=== PATIENT | female | born 1950 | race Caucasian/White ===

== ENCOUNTER 2024-04-27 10:30 | Outpatient (AMB) | payer MEDICARE, BC, MEDICAID, SELFPAY ==
--- NOTE | 2024-04-27 10:45 | A.OFFVIS_ITS ---
Vital Signs 04/27/24 10:47 Height 4 ft 5 in Weight 168 lb BMI 42.0 BP 132/74 Blood Pressure Location Lt brachial Position Sitting Pulse 71 Pulse Source Pulse Oximeter Pulse Oximetry (%) 95 Oxygen Delivery Method Room Air Intake Visit Reasons: Osteoporosis/cm Intake Note: Patient presents for follow up on osteoporosis. Accompanied by: Daughter Allergies cephalexin Allergy (Severe, Verified 04/27/24 11:16) Anaphylaxis ceftriaxone Allergy (Intermediate, Verified 04/27/24 11:16) BREATHING PROBLEMS ciprofloxacin [From Cipro] Allergy (Intermediate, Verified 04/27/24 11:16) Anaphylaxis doxycycline Allergy (Intermediate, Verified 04/27/24 11:16) HEADACHE, STOMACH ISSUES morphine Allergy (Unknown, Unverified 04/27/24 11:16) Unknown alendronate sodium Adverse Reaction (Unknown, Verified 04/27/24 11:16) itching, rash ibuprofen Adverse Reaction (Unknown, Unverified 04/27/24 11:16) Hives insulin isophane (NPH) Adverse Reaction (Unknown, Unverified 04/27/24 11:16) Unknown insulin regular [From Humulin 70/30 U-100 Insulin] Adverse Reaction (Unknown, Verified 04/27/24 11:16) ITCHING AT SITE levofloxacin Adverse Reaction (Unknown, Verified 04/27/24 11:16) Anaphylaxis oxycodone Adverse Reaction (Unknown, Unverified 04/27/24 11:16) Unknown pioglitazone [From Actos] Adverse Reaction (Unknown, Unverified 04/27/24 11:16) Unknown sulfabenzamide Adverse Reaction (Unknown, Verified 04/27/24 11:16) Stomach Upset zafirlukast Adverse Reaction (Unknown, Unverified 04/27/24 11:16) BREATHING PROBLEMS JARDIANCE Allergy (Severe, Uncoded 04/27/24 11:16) BREATHING PROBLEMS DILTIAZ Allergy (Intermediate, Uncoded 04/27/24 11:16) BREATHING PROBLEMS AMARYL Adverse Reaction (Intermediate, Uncoded 04/27/24 11:16) CONSTIPATION AMATYL Adverse Reaction (Unknown, Uncoded 04/27/24 11:16) Anaphylaxis ERYTHROMYCIN Adverse Reaction (Unknown, Uncoded 04/27/24 11:16) UNKNOWN FORTEO Adverse Reaction (Unknown, Uncoded 04/27/24 11:16) UNKNOWN glimepiride Adverse Reaction (Unknown, Uncoded 04/27/24 11:16) Unknown LEVAQUIN Adverse Reaction (Unknown, Uncoded 04/27/24 11:16) Angioedema moxif Adverse Reaction (Unknown, Uncoded 04/27/24 11:16) Anaphylaxis pioglita Adverse Reaction (Unknown, Uncoded 04/27/24 11:16) Unknown tramadol Adverse Reaction (Unknown, Uncoded 04/27/24 11:16) Unknown HPI Comments Details: She had Reclast infusion for the 1st time in October. She reports that after her infusion she had myalgias and felt unwell for a few days. In January she developed pneumonia then was treated for UTI. She also went to the ER in December due to back pain. MRI was done in the ER but did not report any new fracture. Back pain got worse after Reclast infusion. She has been applying lidocaine patches or Salonpas patches with some benefit. She continues to take calcium and vitamin-D supplement. Sometimes she also takes ensure drink 3 to 4 times a week. Review of Systems Const All systems reviewed & are unremarkable except as noted in HPI and below Physical Exam Vital Signs: Last Vital Signs Pulse 71 04/27/24 10:47 BP 132/74 04/27/24 10:47 Pulse Ox 95 04/27/24 10:47 Oxygen Delivery Method Room Air 04/27/24 10:47 BMI result Body Mass Index 42.0 Const Other: General: Comfortable CVS: RRR Respiratory: clear to auscultation bilaterally. Good respiratory effort Skin: No lesions seen MSK: Tender to palpate lower lumbar spinous process and paraspinal muscles. Lumbar flexion was not assessed as patient has had multiple compression fractures in the past with history of osteoporosis. Assessment & Plan Assessment & Plan (1) Osteoporosis: Comment: History of osteoporosis with multiple compression fractures with failed treatment on Prolia. She received Reclast infusion 11/12/2023 with flu-like symptoms as side effect. 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 I will obtain labs this visit to check calcium and vitamin-D Code(s): M81.0 - Age-related osteoporosis without current pathological fracture Category: Medical Qualifiers: Encounter type: sequela Osteoporosis type: age-related Presence of current pathological fracture: with current pathological fracture Qualified Code(s): M80.00XS - Age-related osteoporosis with current pathological fracture, unspecified site, sequela Plan: Labs ordered Plan to repeat bone density next February when it is due at [facility] Continue calcium and vitamin-D combination tablet b.i.d.. The days that patient takes ensure drink, she will take calcium and vitamin-D combination tablet daily Return to clinic in 6 months [facility]ing [facility] (2) Back pain: Comment: Chronic. Back pain was exacerbated after Reclast infusion. She had an MRI done in December, reports no new compression fractures. Pain is not controlled with Tylenol, salon pas patches. We discussed conservative management. She has been referred to pain management for consideration of cortisone injections, which I agree is a appropriate step. 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 We also discussed considering medical management with duloxetine, which patient's daughter will discuss with pain management. (3) Other correction (current) drug therapy: Code(s): Z79.899 - Other oil heaterman (current) drug therapy Category: Medical Plan: See above Orders: Orders Vitamin D 25-OH Total Today M81.0 - Age-related osteoporosis without current pathological fracture Calcium Today M81.0 - Age-related osteoporosis without current pathological fracture Aspartate Amino Transferase Today M81.0 - Age-related osteoporosis without current pathological fracture Albumin Level Today M81.0 - Age-related osteoporosis without current pathological fracture Creatinine Today M81.0 - Age-related osteoporosis without current pathological fracture Alanine Aminotransferase Today M81.0 - Age-related osteoporosis without current pathological fracture Medications: New lidocaine 5% 1 appl topical QID 30 grams 11RF Coding Level of Care Code Est Pt Level 4 (93637) Complex EM visit Add On G2211 Diagnoses Age-related osteoporosis with current pathological fracture, sequela M80.00XS Encounter type: sequela Osteoporosis type: age-related Presence of current pathological fracture: with current pathological fracture Back pain M54.9 Other correction (current) drug therapy Z79.899
[2024-04-27 10:47] VITALS: BP 132/74; PULSE 71; O2SAT 95; BMI 42.0
--- OUTSIDE RECORDS SUMMARY | 2024-05-03 17:41 | XMS_ITS ---
Author Name [facility] Organization Unknown History of Medication Use Medication Directions Dispensed Refills Start Date End Date Stat us furosemide (LASIX) 40 MG tablet Take 0.5 tablets (20 mg total) by mouth 2 (two) times a day in the morning and the early evening.. Take 40 mg (2 tablets) in the morning and 20 mg (1 tablet) in the early evening. 08/15/2023 active ferrous gluconate (FERGON) 324 MG tablet Take 3 tablets (972 mg total) by mouth every morning with breakfast. Take 2 hours before or 4 hours after acid reducers. 11/28/2022 aborted bumetanide (BUMEX) 2 MG tablet Take 1 tablet (2 mg total) by mouth 2 times a day. 12/20/2022 aborted metFORMIN (GLUCOPHAGE-XR) 500 MG 24 hr tablet Take 2 tablets (1,000 mg total) by mouth 2 times a day. Swallow whole. Do not crush, break or chew. 11/28/2022 active fluticasone-salmeterol (ADVAIR) 250-50 mcg/inh diskus inhaler Inhale 1 puff 2 (two) times a day. 11/28/2022 active rivaroxaban (XARELTO) 2.5 MG tablet Take 1 tablet (2.5 mg total) by mouth 2 times a day. 11/28/2022 active fluticasone (FloNASE) 50 mcg/spray nasal spray 1 spray into each nostril 2 (two) times a day in the morning and the early afternoon. 11/28/2022 aborted calcium carbonate-vitamin D (CALTRATE+D) 600 mg-10 mcg tablet Take 2 tablets by mouth every morning with breakfast. 11/28/2022 aborted denosumab (PROLIA) 60 mg/mL Solution Prefilled Syringe subcutaneous injection Inject 1 mL (60 mg total) under the skin every 6 (six) months. Administer in the upper arm, upper thigh, or abdomen. 11/28/2022 aborted guaiFENesin (MUCINEX) 600 MG 12 hr tablet Take 1 tablet (600 mg total) by mouth daily. 11/28/2022 aborted alirocumab (Praluent) 75 MG/ML auto-injector Inject 1 mL (75 mg total) under the skin every 14 days (2 weeks). 06/24/2023 active multivitamin Tab tablet Take 1 tablet by mouth daily. 11/28/2022 aborted [place] 3 1000 MG Cap capsule Take 1,000 mg by mouth daily. Administer whole. Do not break. 11/28/2022 aborted isosorbide mononitrate (IMDUR) 30 MG 24 hr tablet Take 4 tablets (120 mg total) by mouth daily. 11/28/2022 active Biotin 2500 MCG Cap Take 1 tablet by mouth daily. 11/28/2022 aborted metoPROLOL SUCCINATE (TOPROL-XL) 100 MG 24 hr tablet Take 1 tablet (100 mg total) by mouth daily. 11/28/2022 active pravastatin (PRAVACHOL) 80 MG tablet Take 1 tablet (80 mg total) by mouth daily. 11/28/2022 active montelukast (SINGULAIR) 10 MG tablet Take 1 tablet (10 mg total) by mouth nightly. 11/28/2022 active guaiFENesin (MUCINEX) 600 MG 12 hr tablet Take 1 tablet (600 mg total) by mouth daily. 11/28/2022 aborted alirocumab (Praluent) 75 MG/ML auto-injector Inject 1 mL (75 mg total) under the skin every 14 days (2 weeks). 06/24/2023 active tiotropium (SPIRIVA RESPIMAT) 2.5 MCG/ACT inhaler Inhale 2 puffs (5 mcg total) daily. 11/28/2022 aborted glyBURIDE (DIAbeta) 5 mg tablet Take 2 tablets (10 mg total) by mouth 2 (two) times a day with meals. 11/28/2022 active cholecalciferol (CHOLECALCIFEROL) 25 MCG (1000 UT) tablet Take 1 tablet (1,000 Units total) by mouth 2 (two) times a day. 11/28/2022 aborted insulin glargine (LANtus/SEMGLEE) 100 units/mL injection Inject 0.2 mL (20 Units total) under the skin nightly. 11/28/2022 active EPINEPHrine 0.3 mg/0.3 mL IJ auto-injection Inject 0.3 mL (0.3 mg total) into the shoulder, thigh, or buttocks once as needed for allergic reaction. 11/28/2022 aborted bumetanide (BUMEX) 1 MG tablet Take 2 tablets (2 mg total) by mouth 2 (two) times a day in the morning and the early evening.. 11/28/2022 active amitriptyline (ELAVIL) 5 MG tablet Take 2 split tablet (10 mg total) by mouth nightly. 11/28/2022 aborted ezetimibe (ZeTIA) 10 MG tablet Take 1 tablet (10 mg total) by mouth daily. 11/28/2022 active furosemide (LASIX) 40 MG tablet Take 1 tablet (40 mg total) by mouth 2 times a day. 12/03/2022 active PANTOprazole (PROTONIX) 40 MG EC tablet Take 1 tablet (40 mg total) by mouth 2 times a day. 11/28/2022 active albuterol (PROAIR RESPICLICK) 108 (90 Base) MCG/ACT inhaler Inhale 1 puff 4 times daily (every 6 hours) as needed for wheezing. 11/28/2022 active cycloSPORINE (RESTASIS) 0.05 % ophthalmic emulsion 1 drop twice daily (every 12 hours). 11/28/2022 aborted potassium chloride (KLOR-CON M20) 20 MEQ tablet Take 1 tablet (20 mEq total) by mouth daily. Swallow whole, do not crush. Take with food 11/28/2022 active amLODIPine (NORVASC) 2.5 MG tablet Take 1 tablet (2.5 mg total) by mouth daily. 11/28/2022 active umeclidinium bromide (INCRUSE ELLIPTA) 62.5 mcg/inh inhaler Inhale 1 puff daily. 06/24/2023 active insulin aspart (NovoLOG) 100 UNIT/ML injection Inject 0.02 mL (2 Units total) under the skin 3 (three) times a day before meals. Sliding scale (see instructions) 11/28/2022 active metoCLOPRAMIDE (REGLAN) 5 MG tablet Take 1 tablet (5 mg total) by mouth 2 (two) times a day in the morning and the early afternoon. 11/28/2022 aborted diazepam (VALIUM) 2 MG tablet Take 1 tablet (2 mg total) by mouth 2 times a day. 11/28/2022 aborted clopidogrel (Plavix) 75 MG tablet Take 1 tablet (75 mg total) by mouth daily. 11/28/2022 active nitrofurantoin (MACRODANTIN) 50 MG capsule Take 1 capsule (50 mg total) by mouth 2 times a day. Dispense MACRODANTIN. 11/28/2022 aborted acetaminophen (TYLENOL) 500 MG tablet Take 2 tablets (1,000 mg total) by mouth 4 (four) times a day as needed. 11/28/2022 aborted bumetanide (BUMEX) 1 MG tablet Take 1.5 tablets (1.5 mg total) by mouth 2 (two) times a day in the morning and the early evening.. 12/02/2022 aborted magnesium oxide 400 (240 Mg) MG Tab tablet Take 1 tablet (400 mg total) by mouth 2 (two) times a day. Take 2 hours apart from other medications; take with food 11/28/2022 active Problems Problem Status Onset Date Problem Type Date of Resoluti on Source Chronic heart failure with preserved ejection fraction active 2022-11-30 ProblemAct [facility] Atrial fibrillation active 2022-11-30 ProblemAct [facility]
--- OUTSIDE RECORDS SUMMARY | 2024-05-03 17:42 | XMS_ITS | Clinical Summary ---
Author Organization Unknown Care Team Providers Care Bill Hiker Name Role Phone HARRY COOK, ARISTIDES Unavailable Unavailable MARIANA RN, JESSICA Unavailable Unavailable ORSE PT, EMILIA Unavailable Unavailable THOMAS PT, DIMITRY Unavailable Unavailable Payers Payer Name Policy Type Policy Number Effective Date Expira tion Date MEDICARE - [place] [id number] Problems Condition Name Condition Details Condition Category Status Onset Date Resolution Date Last Treatment Date Treating Clinician Comments OTHER SPECIFIED CHRONIC OBSTRUCTIVE PULMONARY DISEASE Active 05-25 00:00: 00 TYPE 2 DIABETES W DIABETIC PERIPHERAL ANGIOPATH W/O GANGRENE Active 05-25 00:00: 00 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 Active 05-25 00:00: 00 UNSPECIFIED ATRIAL FIBRILLATION Active 05-25 00:00: 00 HYPERTENSIVE HEART DISEASE WITH HEART FAILURE Active 05-25 00:00: 00 CHRONIC DIASTOLIC (CONGESTIVE) HEART FAILURE Active 05-25 00:00: 00 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 Active 05-25 00:00: 00 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 Active 05-25 00:00: 00 ANEMIA, UNSPECIFIED Active 05-25 00:00: 00 GENERALIZED ANXIETY DISORDER Active 05-25 00:00: 00 GASTRO-ESOPH AGEAL REFLUX DISEASE WITHOUT ESOPHAGITIS Active 05-25 00:00: 00 DEPRESSION, UNSPECIFIED Active 05-25 00:00: 00 AGE-REL OSTEOPOR W CRNT PATH FX, VERTEB, 7THD Active 05-25 00:00: 00 PURE HYPERCHOLEST EROLEMIA, UNSPECIFIED Active 05-25 00:00: 00 OBESITY, UNSPECIFIED Active 05-25 00:00: 00 BODY MASS INDEX [BMI]30.0-30 .9, ADULT Active 05-25 00:00: 00 PRESENCE OF AORTOCORONAR Y BYPASS GRAFT Active 05-25 00:00: 00 PRESENCE OF PROSTHETIC HEART VALVE Active 05-25 00:00: 00 FPC (CURRENT) USE OF ANTITHROMBOT ICS/ANTIPLAT ELETS Active 05-25 00:00: 00 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 DRUGS Active 05-25 00:00: 00 FPC (CURRENT) USE OF ANTICOAGULAN TS Active 05-25 00:00: 00 Allergies, Adverse Reactions, Alerts Allergy Name Allergy Type Status Severity Reaction(s) Onset Date Inactive Date Treating Clinician Comments BACTRIM Propensity to adverse reactions Active 01-15 16:27: 59 DOXYCYCLINE Propensity to adverse reactions Active 01-15 16:31: 01 ERYTHROMYCIN Propensity to adverse reactions Active 01-15 16:31: 10 IBUPROFEN Propensity to adverse reactions Active 01-15 16:26: 28 Keflex Propensity to adverse reactions Active 01-15 16:25: 54 LEVAQUIN Propensity to adverse reactions Active 01-15 16:30: 20 FOSAMAX Propensity to adverse reactions Active 01-15 16:29: 37 AVELOX Propensity to adverse reactions Active 01-15 16:29: 11 ACTOS Propensity to adverse reactions Active 01-15 16:28: 17 AMARYL Propensity to adverse reactions Active 01-15 16:28: 30 FORTEO Propensity to adverse reactions Active 01-15 16:29: 27 INDOMETHACIN Propensity to adverse reactions Active 01-15 16:31: 20 DILTIAZEM Propensity to adverse reactions Active 01-15 16:26: 02 MOXIFLOXACIN Propensity to adverse reactions Active 01-15 16:27: 34 ALENDRONATE Propensity to adverse reactions Active 01-15 16:25: 44 GLIMEPIRIDE Propensity to adverse reactions Active 01-15 16:26: 15 JARDIANCE Propensity to adverse reactions Active 01-15 16:29: 58 PIOGLITAZONE Propensity to adverse reactions Active 01-15 16:27: 46 HUMULIN N Propensity to adverse reactions Active 01-15 16:29: 49 LEVOFLOXACIN HYDRATE Propensity to adverse reactions Active 01-15 16:27: 18 INSULIN NPH Propensity to adverse reactions Active 01-15 16:26: 37 CIPROFLOXACI N ORAL Propensity to adverse reactions Active 01-15 16:30: 44 Medications Ordered Medication Name Filled Medication Name Start Date Stop Date Current Medication? Ordering Clinician Indication Dosage Frequency Signature (SIG) Comments Components ezetimibe 10 mg tablet 01-21 00:00: 00 01-23 00:00 :00 No [id number] Per instruc tions Per instructio ns (route: oral) Med Classific ation: Cardiovas cular Therapy Agents glyburide 5 mg tablet 01-13 00:00: 00 01-23 00:00 :00 No [id number] Per instruc tions Per instructio ns (route: oral) Med Classific ation: Endocrine metoclopram tucker 5 mg tablet 12-31 00:00: 00 01-23 00:00 :00 No [id number] Per instruc tions Per instructio ns (route: oral) Med Classific ation: Gastroint estinal Therapy Agents pantoprazol e 20 mg tablet,angel yed release 12-26 00:00: 00 12-15 23:59 :00 No [id number] 1 tablet DAILY 1 tablet DAILY (route: oral) Med Classific ation: Gastroint estinal Therapy Agents Incruse Ellipta 62.5 mcg/actuati on powder for inhalation 12-24 00:00: 00 01-23 00:00 :00 No [id number] Per instruc tions Per instructio ns (route: inhalation ) Med Classific ation: Respirato ry Therapy Agents clotrimazol e-betametha sone 1 %-0.05 % topical cream 12-22 00:00: 00 01-23 00:00 :00 No [id number] Per instruc tions TWO TIMES A DAY Per instructio ns TWO TIMES A DAY (route: topical) Med Classific ation: Dermatolo gical diazepam 2 mg tablet 12-22 00:00: 00 01-23 00:00 :00 No [id number] Per instruc tions Per instructio ns (route: oral) Med Classific ation: Central Nervous System Agents metformin 1,000 mg tablet 12-22 00:00: 00 12-15 23:59 :00 No [id number] 1 tablet DAILY 1 tablet DAILY (route: oral) Med Classific ation: Endocrine Advair Diskus 250 mcg-50 mcg/dose powder for inhalation 01-23 00:00: 00 01-14 00:00 :00 No [id number] Per instruc tions 2 TIMES DAILY Per instructio ns 2 TIMES DAILY (route: inhalation ) Med Classific ation: Respirato ry Therapy Agents amitriptyli ne 10 mg tablet 01-23 00:00: 00 12-15 23:59 :00 No [id number] 1 tablet DAILY 1 tablet DAILY (route: oral) Med Classific ation: Central Nervous System Agents biotin 2,500 mcg capsule 01-23 00:00: 00 05-14 23:59 :00 No [id number] 1 capsule DAILY 1 capsule DAILY (route: oral) Med Classific ation: Electroly te Balance-N utritiona l Products Caltrate 600 plus D 600 mg-20 mcg (800 unit) chewable tablet 01-23 00:00: 00 12-15 23:59 :00 No [id number] 1 tablet 2 TIMES DAILY 1 tablet 2 TIMES DAILY (route: oral) Med Classific ation: Electroly te Balance-N utritiona l Products clopidogrel 75 mg tablet 01-23 00:00: 00 12-15 23:59 :00 No [id number] 1 tablet DAILY 1 tablet DAILY (route: oral) Med Classific ation: Hematolog ical Agents docusate sodium 100 mg tablet 01-23 00:00: 00 12-15 23:59 :00 No [id number] 1 tablet 2 TIMES DAILY 1 tablet 2 TIMES DAILY (route: oral) Med Classific ation: Gastroint estinal Therapy Agents ezetimibe 10 mg tablet 01-23 00:00: 00 Yes [id number] 1 tablet DAILY 1 tablet DAILY (route: oral) Med Classific ation: Cardiovas cular Therapy Agents Fish Oil 1,000 mg (120 mg-180 mg) capsule 01-23 00:00: 00 12-15 23:59 :00 No [id number] 1 capsule DAILY 1 capsule DAILY (route: oral) Med Classific ation: Cardiovas cular Therapy Agents Flonase Allergy Relief 50 mcg/actuati on nasal spray,suspe nsion 01-23 00:00: 00 12-15 23:59 :00 No [id number] 2 spray DAILY 2 spray DAILY (route: nasal) Med Classific ation: Respirato ry Therapy Agents furosemide 40 mg tablet 01-23 00:00: 00 12-15 23:59 :00 No [id number] 1 tablet 2 TIMES DAILY 1 tablet 2 TIMES DAILY (route: oral) Med Classific ation: Cardiovas cular Therapy Agents glyburide 5 mg tablet 01-23 00:00: 00 12-15 23:59 :00 No [id number] 1 tablet 2 TIMES DAILY 1 tablet 2 TIMES DAILY (route: oral) Med Classific ation: Endocrine isosorbide mononitrate ER 30 mg tablet,exte nded release 24 hr 01-23 00:00: 00 12-15 23:59 :00 No [id number] 4 tablet DAILY 4 tablet DAILY (route: oral) Med Classific ation: Cardiovas cular Therapy Agents K-Tab 20 mEq tablet,exte nded release 01-23 00:00: 00 Yes [id number] 1 tablet DAILY 1 tablet DAILY (route: oral) Med Classific ation: Electroly te Balance-N utritiona l Products Lantus Solostar U-100 Insulin 100 unit/mL (3 mL) subcutaneou s pen 01-23 00:00: 00 12-15 23:59 :00 No [id number] 20 unit BEDTIME 20 unit BEDTIME (route: subcutaneo us) Med Classific ation: Endocrine Lidocaine Pain Relief 4 % topical patch 01-23 00:00: 00 02-15 23:59 :00 No [id number] 1 adhesiv e patch, medicat ed DAILY 1 adhesive patch, medicated DAILY (route: topical) Med Classific ation: Dermatolo gical Macrobid 100 mg capsule 01-23 00:00: 00 12-15 23:59 :00 No [id number] 1 capsule 2 TIMES DAILY 1 capsule 2 TIMES DAILY (route: oral) Med Classific ation: Genitouri nary Therapy magnesium 400 mg (as magnesium oxide) tablet 01-23 00:00: 00 12-15 23:59 :00 No [id number] 1 tablet 2 TIMES DAILY 1 tablet 2 TIMES DAILY (route: oral) Med Classific ation: Electroly te Balance-N utritiona l Products metoprolol succinate ER 100 mg tablet,exte nded release 24 hr 01-23 00:00: 00 01-14 00:00 :00 No [id number] 1 tablet DAILY 1 tablet DAILY (route: oral) Med Classific ation: Cardiovas cular Therapy Agents Miralax 17 gram oral powder packet 01-23 00:00: 00 12-15 23:59 :00 No [id number] 1 packet 2 TIMES DAILY 1 packet 2 TIMES DAILY (route: oral) Med Classific ation: Gastroint estinal Therapy Agents multivitami n tablet 01-23 00:00: 00 12-15 23:59 :00 No [id number] 1 tablet DAILY 1 tablet DAILY (route: oral) Med Classific ation: Electroly te Balance-N utritiona l Products oxycodone 5 mg tablet 01-23 00:00: 00 01-28 23:59 :00 No [id number] 1 tablet EVERY 6 HOURS 1 tablet EVERY 6 HOURS (route: oral) Med Classific ation: Analgesic , Anti-infl ammatory or Antipyret ic pravastatin 80 mg tablet 01-23 00:00: 00 12-15 23:59 :00 No [id number] 1 tablet BEDTIME 1 tablet BEDTIME (route: oral) Med Classific ation: Cardiovas cular Therapy Agents Singulair 10 mg tablet 01-23 00:00: 00 12-15 23:59 :00 No [id number] 1 tablet BEDTIME 1 tablet BEDTIME (route: oral) Med Classific ation: Respirato ry Therapy Agents Spiriva Respimat 2.5 mcg/actuati on solution for inhalation 01-23 00:00: 00 05-14 23:59 :00 No [id number] 1 puff DAILY 1 puff DAILY (route: inhalation ) Med Classific ation: Respirato ry Therapy Agents Tylenol Extra Strength 500 mg tablet 01-23 00:00: 00 12-15 23:59 :00 No [id number] 2 tablet 3 TIMES DAILY 2 tablet 3 TIMES DAILY (route: oral) Med Classific ation: Analgesic , Anti-infl ammatory or Antipyret ic Valium 2 mg tablet 01-23 00:00: 00 01-14 00:00 :00 No [id number] 1 tablet 2 TIMES DAILY 1 tablet 2 TIMES DAILY (route: oral) Med Classific ation: Central Nervous System Agents Ventolin HFA 90 mcg/actuati on aerosol inhaler 01-23 00:00: 00 01-14 00:00 :00 No [id number] 2 puff EVERY 6 HOURS 2 puff EVERY 6 HOURS (route: inhalation ) Med Classific ation: Respirato ry Therapy Agents Vitamin B-12 1,000 mcg tablet 01-23 00:00: 00 12-15 23:59 :00 No [id number] 1 tablet 2 TIMES DAILY 1 tablet 2 TIMES DAILY (route: oral) Med Classific ation: Electroly te Balance-N utritiona l Products Xarelto 2.5 mg tablet 01-23 00:00: 00 01-14 00:00 :00 No [id number] 1 tablet 2 TIMES DAILY 1 tablet 2 TIMES DAILY (route: oral) Med Classific ation: Hematolog ical Agents cefuroxime axetil 500 mg tablet -14 00:00: 00 02-12 23:59 :00 No [id number] 1 tablet 2 TIMES DAILY 1 tablet 2 TIMES DAILY (route: oral) Med Classific ation: Anti-Infe ctive Agents tramadol 50 mg tablet 01-28 00:00: 03-20 00:00 :00 No [id number] 1 tablet 2 TIMES DAILY 1 tablet 2 TIMES DAILY (route: oral) Med Classific ation: Analgesic , Anti-infl ammatory or Antipyret ic dexamethaso ne 4 mg tablet 01-25 00:00: 00 01-29 23:59 :00 No [id number] 1 tablet 2 TIMES DAILY 1 tablet 2 TIMES DAILY (route: oral) Med Classific ation: Endocrine O2 - OXYGEN 2022-05 00:00: 00 12-15 23:59 :00 No [id number] 2 Liter BEDTIME 2 Liter BEDTIME (route: Oxygen) Med Classific ation: Medical Oxygen benzonatate 100 mg capsule 2022-05 00:00: 00 12-15 23:59 :00 No [id number] 31 capsule NEEDED 31 capsule NEEDED (route: oral) Med Classific ation: Respirato ry Therapy Agents trazodone 50 mg tablet 2022-05 00:00: 00 12-15 23:59 :00 No [id number] 1 tablet NEEDED 1 tablet NEEDED (route: oral) Med Classific ation: Central Nervous System Agents Humalog KwikPen (U-100) Insulin 100 unit/mL subcutaneou s 2022-05 00:00: 00 01-14 00:00 :00 No [id number] Per instruc tions 3 TIMES DAILY Per instructio ns 3 TIMES DAILY (route: subcutaneo us) Med Classific ation: Endocrine cefuroxime axetil 500 mg tablet 2022-05 00:00: 00 03-28 23:59 :00 No [id number] 1 tablet 2 TIMES DAILY 1 tablet 2 TIMES DAILY (route: oral) Med Classific ation: Anti-Infe ctive Agents Incruse Ellipta 62.5 mcg/actuati on powder for inhalation 2022-05 00:00: 00 Yes [id number] 1 inhalat ion DAILY 1 inhalation DAILY (route: inhalation ) Med Classific ation: Respirato ry Therapy Agents pantoprazol e 20 mg tablet,angel yed release 01-08 00:00: 00 01-14 00:00 :00 No [id number] Per instruc tions Per instructio ns (route: oral) Med Classific ation: Gastroint estinal Therapy Agents montelukast 10 mg tablet 01-07 00:00: 00 Yes [id number] Per instruc tions DAILY AT BEDTIME Per instructio ns DAILY AT BEDTIME (route: oral) Med Classific ation: Respirato ry Therapy Agents isosorbide mononitrate ER 60 mg tablet,exte nded release 24 hr 01-05 00:00: 00 Yes [id number] Per instruc tions EVERY Per instructio ns EVERY (route: oral) Med Classific ation: Cardiovas cular Therapy Agents clopidogrel 75 mg tablet 12-31 00:00: 00 Yes [id number] 1 tablet DAILY 1 tablet DAILY (route: oral) Med Classific ation: Hematolog ical Agents glyburide 5 mg tablet 12-31 00:00: 00 02-15 23:59 :00 No [id number] 1 tablet DAILY 1 tablet DAILY (route: oral) Med Classific ation: Endocrine pravastatin 80 mg tablet 12-31 00:00: 00 Yes [id number] 1 tablet DAILY 1 tablet DAILY (route: oral) Med Classific ation: Cardiovas cular Therapy Agents nitrofurant oin macrocrysta l 50 mg capsule 12-28 00:00: 00 Yes [id number] 1 capsule 2 TIMES DAILY 1 capsule 2 TIMES DAILY (route: oral) Med Classific ation: Genitouri nary Therapy albuterol sulfate 2.5 mg/3 mL (0.083 %) solution for nebulizatio n 12-23 00:00: 00 02-15 23:59 :00 No [id number] Per instruc tions EVERY 4 HOURS FOR UP TO 30 DAYS Per instructio ns EVERY 4 HOURS FOR UP TO 30 DAYS (route: inhalation ) Med Classific ation: Respirato ry Therapy Agents furosemide 40 mg tablet 12-23 00:00: 00 Yes [id number] 1 tablet 2 TIMES DAILY 1 tablet 2 TIMES DAILY (route: oral) Med Classific ation: Cardiovas cular Therapy Agents metformin 1,000 mg tablet 12-20 00:00: 00 Yes [id number] 1 tablet 2 TIMES DAILY 1 tablet 2 TIMES DAILY (route: oral) Med Classific ation: Endocrine pantoprazol e 40 mg tablet,angel yed release 12-20 00:00: 00 02-15 23:59 :00 No [id number] 1 tablet DAILY 1 tablet DAILY (route: oral) Med Classific ation: Gastroint estinal Therapy Agents Praluent Pen 75 mg/mL subcutaneou s pen injector 12-16 00:00: 00 Yes [id number] Per instruc tions ONCE EVERY 14 DAYS Per instructio ns ONCE EVERY 14 DAYS (route: subcutaneo us) Med Classific ation: Cardiovas cular Therapy Agents cefuroxime axetil 250 mg tablet 01-14 00:00: 00 01-24 23:59 :00 No [id number] 1 tablet 2 TIMES DAILY 1 tablet 2 TIMES DAILY (route: oral) Med Classific ation: Anti-Infe ctive Agents Lantus Solostar U-100 Insulin 100 unit/mL (3 mL) subcutaneou s pen 01-14 00:00: 00 02-15 23:59 :00 No [id number] 22 unit BEDTIME 22 unit BEDTIME (route: subcutaneo us) Med Classific ation: Endocrine ondansetron HCl 4 mg tablet 01-14 00:00: 00 02-15 23:59 :00 No [id number] 1 tablet DAILY 1 tablet DAILY (route: oral) Med Classific ation: Gastroint estinal Therapy Agents acetaminoph en 500 mg tablet 02-02 00:00: 00 02-15 23:59 :00 No [id number] 1 tablet EVERY 4 HOURS 1 tablet EVERY 4 HOURS (route: oral) Med Classific ation: Analgesic , Anti-infl ammatory or Antipyret ic DermacinRx Lidocan 5 % topical patch 02-02 00:00: 00 02-15 23:59 :00 No [id number] 1 adhesiv e patch, medicat ed DAILY 1 adhesive patch, medicated DAILY (route: topical) Med Classific ation: Dermatolo gical Xarelto 2.5 mg tablet 01-20 00:00: 00 Yes [id number] 1 tablet 2 TIMES DAILY 1 tablet 2 TIMES DAILY (route: oral) Med Classific ation: Hematolog ical Agents amitriptyli ne 10 mg tablet 02-15 00:00: 00 Yes [id number] 1 tablet BEDTIME 1 tablet BEDTIME (route: oral) Med Classific ation: Central Nervous System Agents diazepam 2 mg tablet 02-15 00:00: 00 Yes [id number] 1 tablet NEEDED 1 tablet NEEDED (route: oral) Med Classific ation: Central Nervous System Agents glyburide 5 mg tablet 02-15 00:00: 00 03-03 23:59 :00 No [id number] 2 tablet 2 TIMES DAILY 2 tablet 2 TIMES DAILY (route: oral) Med Classific ation: Endocrine insulin lispro (U-100) 100 unit/mL subcutaneou s pen 02-15 00:00: 00 Yes [id number] Per instruc tions 3 TIMES DAILY Per instructio ns 3 TIMES DAILY (route: subcutaneo us) Med Classific ation: Endocrine magnesium 200 mg tablet 02-15 00:00: 00 Yes [id number] 2 tablet 2 TIMES DAILY 2 tablet 2 TIMES DAILY (route: oral) Med Classific ation: Electroly te Balance-N utritiona l Products metoprolol succinate ER 100 mg tablet,exte nded release 24 hr 02-15 00:00: 00 Yes [id number] 1 tablet DAILY 1 tablet DAILY (route: oral) Med Classific ation: Cardiovas cular Therapy Agents prednisone 20 mg tablet 02-15 00:00: 00 02-19 23:59 :00 No [id number] 2 tablet DAILY 2 tablet DAILY (route: oral) Med Classific ation: Endocrine Wixela Inhub 250 mcg-50 mcg/dose powder for inhalation 02-15 00:00: 00 Yes [id number] 1 inhalat ion 2 TIMES DAILY 1 inhalation 2 TIMES DAILY (route: inhalation ) Med Classific ation: Respirato ry Therapy Agents pantoprazol e 20 mg tablet,angel yed release 02-15 00:00: 00 Yes [id number] 1 tablet DAILY 1 tablet DAILY (route: oral) Med Classific ation: Gastroint estinal Therapy Agents albuterol sulfate 2.5 mg/3 mL (0.083 %) solution for nebulizatio n 02-15 00:00: 00 Yes [id number] 3 mL EVERY 4 HOURS 3 mL EVERY 4 HOURS (route: inhalation ) Med Classific ation: Respirato ry Therapy Agents ipratropium 0.5 mg-albutero l 3 mg (2.5 mg base)/3 mL nebulizatio n soln 02-15 00:00: 00 Yes [id number] 3 mL 4 TIMES DAILY 3 mL 4 TIMES DAILY (route: inhalation ) Med Classific ation: Respirato ry Therapy Agents Basaglar KwikPen U-100 Insulin 100 unit/mL (3 mL) subcutaneou s 02-15 00:00: 00 Yes [id number] 20 unit BEDTIME 20 unit BEDTIME (route: subcutaneo us) Med Classific ation: Endocrine isosorbide mononitrate ER 120 mg tablet,exte nded release 24 hr 02-15 00:00: 00 03-17 23:59 :00 No [id number] 1 tablet DAILY 1 tablet DAILY (route: oral) Med Classific ation: Cardiovas cular Therapy Agents methylpredn isolone 4 mg tablet 01-25 00:00: 00 01-29 23:59 :00 No [id number] Per instruc tions DIRECTED Per instructio ns DIRECTED (route: oral) Med Classific ation: Endocrine fosfomycin tromethamin e 3 gram oral packet 2023-05 0 00:00: 00 03-08 23:59 :00 No [id number] 1 packet EVERY 72 HOURS 1 packet EVERY 72 HOURS (route: oral) Med Classific ation: Genitouri nary Therapy fosfomycin tromethamin e 3 gram oral packet 2023-05 00:00: 00 Yes [id number] 1 packet DAILY 1 packet DAILY (route: oral) Med Classific ation: Genitouri nary Therapy estradiol 0.01% (0.1 mg/gram) vaginal cream 2023-05 00:00: 00 Yes [id number] Per instruc tions 2 TIMES A WEEK Per instructio ns 2 TIMES A WEEK (route: vaginal) Med Classific ation: Vaginal Products Vital Signs Vital Name Observation Time Observation Value Commen ts Temperature 2024-04-28 09:15:00.000 97.8 [degF] Temperature 2024-04-18 10:05:00.000 97.3 [degF] Temperature 2024-04-15 09:40:00.000 97.3 [degF] Temperature 2024-04-01 10:24:00.000 97.5 [degF] Temperature 2024-03-22 19:31:00.000 97.3 [degF] Temperature 2024-03-16 11:27:00.000 97.6 [degF] Pulse 2024-04-28 09:15:00.000 78 /min Pulse 2024-04-18 10:05:00.000 80 /min Pulse 2024-04-15 09:40:00.000 70 /min Pulse 2024-04-01 10:21:00.000 69 /min Pulse 2024-03-22 19:31:00.000 68 /min Pulse 2024-03-16 11:27:00.000 79 /min O2 Saturation (%) 2024-04-28 09:16:00.000 97 % O2 Saturation (%) 2024-04-15 09:40:00.000 95 % O2 Saturation (%) 2024-04-01 10:21:00.000 98 % O2 Saturation (%) 2024-03-22 19:31:00.000 95 % O2 Saturation (%) 2024-03-16 11:27:00.000 94 % Respirations 2024-04-28 09:15:00.000 18 /min Respirations 2024-04-18 10:05:00.000 18 /min Respirations 2024-04-15 09:40:00.000 18 /min Respirations 2024-04-01 10:21:00.000 18 /min Respirations 2024-03-22 19:31:00.000 18 /min Respirations 2024-03-16 11:27:00.000 18 /min Weight (lbs) 2024-03-22 19:31:00.000 163 [lb_av] Weight (lbs) 2024-03-16 11:27:00.000 165 [lb_av] Systolic Blood Pressure 2024-04-28 09:15:00.000 120 mm [Hg] Systolic Blood Pressure 2024-04-18 10:05:00.000 134 mm [Hg] Systolic Blood Pressure 2024-04-15 09:40:00.000 126 mm [Hg] Systolic Blood Pressure 2024-04-01 10:21:00.000 124 mm [Hg] Systolic Blood Pressure 2024-03-22 19:31:00.000 120 mm [Hg] Systolic Blood Pressure 2024-03-16 11:27:00.000 128 mm [Hg] Diastolic Blood Pressure 2024-04-28 09:15:00.000 70 mm [Hg] Diastolic Blood Pressure 2024-04-18 10:05:00.000 74 mm [Hg] Diastolic Blood Pressure 2024-04-15 09:40:00.000 62 mm [Hg] Diastolic Blood Pressure 2024-04-01 10:21:00.000 70 mm [Hg] Diastolic Blood Pressure 2024-03-22 19:31:00.000 62 mm [Hg] Diastolic Blood Pressure 2024-03-16 11:27:00.000 70 mm [Hg] Plan of Treatment Planned Activity Planned Date Details Comments Future Scheduled Test SKILLED NU RSE TO EVALUATE PATIENT, IDENTIFY PRIMARY AND CO-MORBID CONDITIONS CODED PER CODING GUIDELINES, AND DEVELOP PATIENT SPECIFIC PLAN OF CARE THAT INCLUDES PATIENT GOAL FOR HOME HEALTH. [code = SKILLED NURSE TO EVALUATE PATIENT, IDENTIFY PRIMARY AND CO-MORBID CONDITIONS CODED PER CODING GUIDELINES, AND DEVELOP PATIENT SPECIFIC PLAN OF CARE THAT INCLUDES PATIENT GOAL FOR HOME HEALTH.] Future Scheduled Test SKILLED NU RSE TO REVIEW PATIENT MEDICATIONS. INSTRUCT PATIENT/CAREGIVER ON MONITORING OF EFFECTIVENESS, ADVERSE DRUG REACTIONS, SIDE EFFECTS OF ALL MEDICATIONS (PRESCRIPTION/-OTC), AND HOW AND WHEN TO REPORT PROBLEMS. [code = SKILLED NURSE TO REVIEW PATIENT MEDICATIONS. INSTRUCT PATIENT/CAREGIVER ON MONITORING OF EFFECTIVENESS, ADVERSE DRUG REACTIONS, SIDE EFFECTS OF ALL MEDICATIONS (PRESCRIPTION/-OTC), AND HOW AND WHEN TO REPORT PROBLEMS.] Future Scheduled Test SKILLED NU RSE TO ASSESS ANXIETY AND PROVIDE ASSISTANCE TO PATIENT FOR UNDERSTANDING AND MANAGEMENT OF FEELINGS. [code = SKILLED NURSE TO ASSESS ANXIETY AND PROVIDE ASSISTANCE TO PATIENT FOR UNDERSTANDING AND MANAGEMENT OF FEELINGS.] Future Scheduled Test SKILLED NU RSE FOR O/A, TEACHING, AND MANAGEMENT OF CAD, HLD. [code = SKILLED NURSE FOR O/A, TEACHING, AND MANAGEMENT OF CAD, HLD.] Future Scheduled Test SKILLED NU RSE FOR O/A, TEACHING RELATED TO GERD FOR EARLY IDENTIFICATION OF EXACERBATION OF DISEASE PROCESS. [code = SKILLED NURSE FOR O/A, TEACHING RELATED TO GERD FOR EARLY IDENTIFICATION OF EXACERBATION OF DISEASE PROCESS.] Future Scheduled Test SKILLED NU RSE FOR O/A, TEACHING AND MANAGEMENT OF UTI FOR EARLY IDENTIFICATION OF EXACERBATION OF DISEASE PROCESS [code = SKILLED NURSE FOR O/A, TEACHING AND MANAGEMENT OF UTI FOR EARLY IDENTIFICATION OF EXACERBATION OF DISEASE PROCESS] Future Scheduled Test SKILLED NU RSE FOR O/A OF RESPIRATORY SYSTEM TO IDENTIFY CHANGES ASSOCIATED WITH EXACERBATION AND TO PROVIDE SKILLED TEACHING ON MANAGEMENT OF RESPIRATORY DISEASE PROCESS. [code = SKILLED NURSE FOR O/A OF RESPIRATORY SYSTEM TO IDENTIFY CHANGES ASSOCIATED WITH EXACERBATION AND TO PROVIDE SKILLED TEACHING ON MANAGEMENT OF RESPIRATORY DISEASE PROCESS.] Future Scheduled Test SKILLED NU RSE TO PERFORM AND RECORD BLOOD SUGAR READING PRN FOR SIGNS AND SYMPTOMS OF HYPO/HYPERGLYCEMIA. [code = SKILLED NURSE TO PERFORM AND RECORD BLOOD SUGAR READING PRN FOR SIGNS AND SYMPTOMS OF HYPO/HYPERGLYCEMIA.] Future Scheduled Test SKILLED NU RSE TO INSTRUCT PATIENT/CAREGIVER ON SIGNS AND SYMPTOMS, RISK FACTORS, COMPLICATIONS, AND MANAGEMENT OF ATRIAL FIBRILLATION. [code = SKILLED NURSE TO INSTRUCT PATIENT/CAREGIVER ON SIGNS AND SYMPTOMS, RISK FACTORS, COMPLICATIONS, AND MANAGEMENT OF ATRIAL FIBRILLATION.] Future Scheduled Test SKILLED NU RSE TO PROVIDE TEACHING ON SIGNS AND SYMPTOMS AND MANAGEMENT OF HYPERTENSION. [code = SKILLED NURSE TO PROVIDE TEACHING ON SIGNS AND SYMPTOMS AND MANAGEMENT OF HYPERTENSION.] Future Scheduled Test SKILLED NU RSE FOR O/A AND SKILLED TEACHING RELATED TO ALTERED SKIN INTEGRITY [code = SKILLED NURSE FOR O/A AND SKILLED TEACHING RELATED TO ALTERED SKIN INTEGRITY] Future Scheduled Test SKILLED NU RSE TO INSTRUCT PATIENT/CAREGIVER ON COPD TO INCLUDE TEACHING AND SELF-MANAGEMENT RELATED TO COPD DISEASE PROCESS, SIGNS AND SYMPTOMS, AND COMPLICATIONS. [code = SKILLED NURSE TO INSTRUCT PATIENT/CAREGIVER ON COPD TO INCLUDE TEACHING AND SELF-MANAGEMENT RELATED TO COPD DISEASE PROCESS, SIGNS AND SYMPTOMS, AND COMPLICATIONS.] Future Scheduled Test SKILLED NU RSE FOR O/A, TEACHING AND SELF-MANAGEMENT RELATED TO HEART FAILURE. INSTRUCT PATIENT/CAREGIVER ON SIGNS AND SYMPTOMS OF EXACERBATION TO REPORT AND IMPORTANCE OF OBTAINING AND RECORDING DAILY WEIGHT AND/OR MEASUREMENTS. SN OR TRAINED PATIENT/CAREGIVER TO OBTAIN WEIGHT DAILY AND WEIGHT GAIN OF 2 LBS OVERNIGHT OR 5 LBS IN 1 WEEK TO BE REPORTED TO PHYSICIAN/PROVIDER. [code = SKILLED NURSE FOR O/A, TEACHING AND SELF-MANAGEMENT RELATED TO HEART FAILURE. INSTRUCT PATIENT/CAREGIVER ON SIGNS AND SYMPTOMS OF EXACERBATION TO REPORT AND IMPORTANCE OF OBTAINING AND RECORDING DAILY WEIGHT AND/OR MEASUREMENTS. SN OR TRAINED PATIENT/CAREGIVER TO OBTAIN WEIGHT DAILY AND WEIGHT GAIN OF 2 LBS OVERNIGHT OR 5 LBS IN 1 WEEK TO BE REPORTED TO PHYSICIAN/PROVIDER. ] Future Scheduled Test SKILLED NU RSE FOR O/A AND SKILLED TEACHING RELATED TO SIGNS AND SYMPTOMS AND MANAGEMENT OF ANEMIA. [code = SKILLED NURSE FOR O/A AND SKILLED TEACHING RELATED TO SIGNS AND SYMPTOMS AND MANAGEMENT OF ANEMIA.] Future Scheduled Test SKILLED NU RSE FOR O/A AND TEACHING OF DIABETIC MANAGEMENT INCLUDING BLOOD SUGAR MONITORING/USE OF GLUCOMETER, DIABETIC DIET, LOWER EXTREMITY SKIN INSPECTION, PROPER SKIN/FOOT CARE, AND SIGNS AND SYMPTOMS HYPO/HYPERGLYCEMIA TO REPORT. [code = SKILLED NURSE FOR O/A AND TEACHING OF DIABETIC MANAGEMENT INCLUDING BLOOD SUGAR MONITORING/USE OF GLUCOMETER, DIABETIC DIET, LOWER EXTREMITY SKIN INSPECTION, PROPER SKIN/FOOT CARE, AND SIGNS AND SYMPTOMS HYPO/HYPERGLYCEMIA TO REPORT.] Future Scheduled Test VIRTUAL SIT FREQUENCY: 3-4 PRN VIRTUAL VISITS FOR HIGH RISK ASSESSMENTS AND/OR CHANGE IN STATUS MAY BE PERFORMED UTILIZING [employer] SYSTEM TO OPTIMIZE SKILLED SERVICES FURNISHED ON THE PLAN OF CARE. SKILLED NURSE TO ESTABLISH SUPPORT MEASURES TO MINIMIZE RISK OF REHOSPITALIZATION, AND INSTRUCT PATIENT/CAREGIVER ON METHODS TO REDUCE AVOIDABLE HOSPITALIZATION. [code = VIRTUAL VISIT FREQUENCY: 3-4 PRN VIRTUAL VISITS FOR HIGH RISK ASSESSMENTS AND/OR CHANGE IN STATUS MAY BE PERFORMED UTILIZING TELECOMMUNICATION[employer] SYSTEM TO OPTIMIZE SKILLED SERVICES FURNISHED ON THE PLAN OF CARE. SKILLED NURSE TO ESTABLISH SUPPORT MEASURES TO MINIMIZE RISK OF REHOSPITALIZATION, AND INSTRUCT PATIENT/CAREGIVER ON METHODS TO REDUCE AVOIDABLE HOSPITALIZATION.] Future Scheduled Test PATIENT WAHL S A RISK OF HOSPITALIZATION AND ED USE. SKILLED NURSE TO ESTABLISH SUPPORT MEASURES TO MINIMIZE RISK OF HOSPITALIZATION AND ED USE, AND INSTRUCT PATIENT/CAREGIVER ON METHODS TO REDUCE AVOIDABLE HOSPITALIZATION AND ED USE. [code = PATIENT HAS A RISK OF HOSPITALIZATION AND ED USE. SKILLED NURSE TO ESTABLISH SUPPORT MEASURES TO MINIMIZE RISK OF HOSPITALIZATION AND ED USE, AND INSTRUCT PATIENT/CAREGIVER ON METHODS TO REDUCE AVOIDABLE HOSPITALIZATION AND ED USE.] Future Scheduled Test SKILLED NU RSE TO PROVIDE INSTRUCTION TO PATIENT/CAREGIVER RELATED TO DISCHARGE PLANNING. [code = SKILLED NURSE TO PROVIDE INSTRUCTION TO PATIENT/CAREGIVER RELATED TO DISCHARGE PLANNING.] Future Scheduled Test SKILLED NU RSE TO PERFORM HOME SAFETY AND FALL ASSESSMENT AND PROVIDE INSTRUCTION TO IMPLEMENT HOME SAFETY AND FALL PREVENTION STRATEGIES. [code = SKILLED NURSE TO PERFORM HOME SAFETY AND FALL ASSESSMENT AND PROVIDE INSTRUCTION TO IMPLEMENT HOME SAFETY AND FALL PREVENTION STRATEGIES.] Future Scheduled Test SKILLED NU RSE FOR OBSERVATION AND ASSESSMENT OF PATIENTS PAIN LEVEL AND EFFECTIVENESS OF PAIN MANAGEMENT REGIMEN. SKILLED NURSE TO INSTRUCT PATIENT/CAREGIVER REGARDING PHARMACOLOGIC AND NON-PHARMACOLOGIC PAIN CONTROL MEASURES. SKILLED NURSE TO REPORT TO PHYSICIAN IF PAIN IS UNCONTROLLED WITH CURRENT PAIN MANAGEMENT REGIMEN. [code = SKILLED NURSE FOR OBSERVATION AND ASSESSMENT OF PATIENTS PAIN LEVEL AND EFFECTIVENESS OF PAIN MANAGEMENT REGIMEN. SKILLED NURSE TO INSTRUCT PATIENT/CAREGIVER REGARDING PHARMACOLOGIC AND NON-PHARMACOLOGIC PAIN CONTROL MEASURES. SKILLED NURSE TO REPORT TO PHYSICIAN IF PAIN IS UNCONTROLLED WITH CURRENT PAIN MANAGEMENT REGIMEN.] Future Scheduled Test SKILLED NU RSE TO ASSESS PATIENT'S SKIN INTEGRITY AND INSTRUCT PATIENT/CAREGIVER ON MEASURES TO PREVENT PRESSURE ULCERS. [code = SKILLED NURSE TO ASSESS PATIENT'S SKIN INTEGRITY AND INSTRUCT PATIENT/CAREGIVER ON MEASURES TO PREVENT PRESSURE ULCERS.] Future Scheduled Test SKILLED NU RSE TO PROVIDE ASSESSMENT AND TEACHING/REINFORCEMENT OF MANAGEMENT OF DEPRESSION INCLUDING DISEASE PROCESS, MEDICATION MANAGEMENT, COPING SKILLS AND IDENTIFY CHANGES ASSOCIATED WITH DEPRESSIVE DISORDERS FOR EARLY INTERVENTION. [code = SKILLED NURSE TO PROVIDE ASSESSMENT AND TEACHING/REINFORCEMENT OF MANAGEMENT OF DEPRESSION INCLUDING DISEASE PROCESS, MEDICATION MANAGEMENT, COPING SKILLS AND IDENTIFY CHANGES ASSOCIATED WITH DEPRESSIVE DISORDERS FOR EARLY INTERVENTION. ] Goal 2024-02-16 Patient Goal - [facility]AY [facility] OF [facility] Goal Patient Goal - [facility] Goal 2024-02-29 Patient Goal - STAY OUT OF [facility] Goal 2024-03-10 Patient Goal - [facility] Goal Provider Goal - A PLAN OF CARE WILL BE ESTABLISHED THAT MEETS PATIENT'S [facility] NEEDS AND INCLUDES PATIENT GOAL FOR HOME HEALTH. Goal Provider Goal - PATIENT/CAREGIVER WILL VERBALIZE UNDERSTANDING OF EDUCATION PROVIDED ON MEDICATIONS BY THE END OF THE CERTIFICATION PERIOD. Goal Provider Goal - SYMPTOMS OF ANXIETY ARE IDENTIFIED AND INTERVENTIONS INITIATED TO ENABLE PATIENT TO UNDERSTAND AND MANAGE FEELINGS THROUGHOUT EPISODE. Goal Provider Goal - PATIENT/CAREGIVER WILL VERBALIZE/DEMONSTRATE MANAGEMENT OF CARDIAC DISEASE PROCESS AND EXACERBATIONS WILL BE IDENTIFIED AND PROMPTLY REPORTED THROUGHOUT THE CERTIFICATION PERIOD. Goal Provider Goal - EXACERBATIONS OF GASTROINTESTINAL DISEASE WILL BE PROMPTLY IDENTIFIED AND INTERVENTIONS IMPLEMENTED TO MINIMIZE RISKS TO PATIENT BY END OF EPISODE. Goal Provider Goal - PATIENT/CAREGIVER WILL VERBALIZE UNDERSTANDING OF GENITOURINARY DISEASE PROCESS, AND EXACERBATIONS OF GENITOURINARY DISEASE WILL BE PROMPTLY IDENTIFIED FOR EARLY INTERVENTION THROUGHOUT THE CERTIFICATION PERIOD. Goal Provider Goal - PATIENT/CAREGIVER WILL VERBALIZE/DEMONSTRATE MANAGEMENT OF RESPIRATORY DISEASE PROCESS. CHANGES IN RESPIRATORY STATUS WILL BE IDENTIFIED AND REPORTED TO PHYSICIAN FOR PROMPT INTERVENTION THROUGHOUT THE CERTIFICATION PERIOD. Goal Provider Goal - BLOOD SUGAR READING WILL BE OBTAINED ORDERED THROUGHOUT CERTIFICATION PERIOD. Goal Provider Goal - PATIENT/CAREGIVER WILL VERBALIZE UNDERSTANDING OF SIGNS AND SYMPTOMS, COMPLICATIONS, AND MANAGEMENT OF ATRIAL FIBRILLATION THROUGHOUT THE CERTIFICATION PERIOD. Goal Provider Goal - PATIENT/CAREGIVER WILL VERBALIZE SIGNS AND SYMPTOMS OF HYPERTENSION AND WILL BE ABLE TO DEMONSTRATE ABILITY TO MANAGE EXACERBATION BY END OF THE EPISODE. Goal Provider Goal - PATIENT/CAREGIVER WILL VERBALIZE/DEMONSTRATE UNDERSTANDING OF TEACHING RELATED TO ALTERED SKIN INTEGRITY SKIN CONDITION) BY END OF CERTIFICATION PERIOD. Goal Provider Goal - PATIENT/CAREGIVER WILL VERBALIZE/DEMONSTRATE KNOWLEDGE AND MANAGEMENT OF COPD BY END OF EPISODE. Goal Provider Goal - PATIENT/CAREGIVER WILL VERBALIZE/DEMONSTRATE KNOWLEDGE AND MANAGEMENT OF HEART FAILURE DISEASE PROCESS BY END OF EPISODE. Goal Provider Goal - PATIENT/CARGIVER WILL VERBALIZE UNDERSTANDING OF ANEMIA INCLUDING SIGNS AND SYMPTOMS, MANAGEMENT OF COMPLICATIONS, AND PRESCRIBED TREATMENT REGIMEN BY END OF EPISODE. Goal Provider Goal - PATIENT/CAREGIVER WILL VERBALIZE/DEMONSTRATE KNOWLEDGE OF DIABETIC MANAGEMENT. CHANGES IN DIABETIC STATUS WILL BE IDENTIFIED AND REPORTED TO PHYSICIAN FOR PROMPT INTERVENTION THROUGHOUT THE CERTIFICATION PERIOD. Goal Provider Goal - PATIENT/CAREGIVER WILL UTILIZE VIRTUAL VISITS TO ACHIEVE GOALS OUTLINED ON THE PLAN OF CARE. PATIENT WILL HAVE SUPPORT MEASURES ESTABLISHED TO PREVENT HOSPITALIZATION AND PATIENT/CAREGIVER WILL VERBALIZE/DEMONSTRATE METHODS TO REDUCE AVOIDABLE HOSPITALIZATION THROUGHOUT THE CERTIFICATION PERIOD. Goal Provider Goal - PATIENT WILL HAVE SUPPORT MEASURES ESTABLISHED TO PREVENT HOSPITALIZATION AND ED USE AND PATIENT/CAREGIVER WILL VERBALIZE/DEMONSTRATE METHODS TO REDUCE AVOIDABLE HOSPITALIZATION AND ED USE BY END OF EPISODE. Goal Provider Goal - PATIENT/CAREGIVER WILL VERBALIZE UNDERSTANDING OF DISCHARGE PLANNING INSTRUCTIONS BY DATE OF DISCHARGE. Goal Provider Goal - PATIENT/CAREGIVER WILL VERBALIZE/DEMONSTRATE EFFECTIVE HOME SAFETY AND FALL PREVENTION STRATEGIES THROUGHOUT CERTIFICATION PERIOD. Goal Provider Goal - PATIENT/CAREGIVER WILL DEMONSTRATE UNDERSTANDING OF PHARMACOLOGIC AND NONPHARMACOLOGIC PAIN CONTROL MEASURES AND PATIENT WILL HAVE IMPROVEMENT IN PAIN INTERFERING WITH ACTIVITY EVIDENCED BY PAIN CONTROLLED AT LEVEL OF 7 OR LESS BY END OF CERTIFICATION PERIOD. Goal Provider Goal - PATIENT/CAREGIVER WILL VERBALIZE UNDERSTANDING OF PRESSURE ULCER PREVENTION BY END OF THE EPISODE. Goal Provider Goal - PATIENT/CAREGIVER WILL VERBALIZE/DEMONSTRATE UNDERSTANDING OF THE MANAGEMENT OF DEPRESSION THROUGHOUT THE CERTIFICATION PERIOD AND SYMPTOMS ARE IDENTIFIED AND MANAGED TO MAINTAIN PATIENT SAFETY IN THE HOME. Progress Notes Progress Notes <paragraph>[Visit Date: 2023 by JESSICA PEÑA RN]:</paragraph><paragraph>[facility] VISIT Apr ABNORMAL VITALS: VITAL SIGNS STABLE, NO FEVER FALLS: NO RECENT FALLS ABNORMAL PHYSICAL ASSESSMENT FINDINGS: NONE MEDICATION CHANGES: ALL MEDICATIONS RECONCILED WITHOUT ISSUE. NO MED CHGES. . OBSERVATION AND ASSESSMENT PROVIDED: PATIENT OX4. BLOOD SUGAR STABLE PER PATIENT REPORT. LUNG SOUNDS CLEAR, PATIENT DENIES ANY CP OR PALPITATIONS. POSITIVE BOWEL SOUNDS. PATIENT DENIES ANY NAUSEA OR VOMITING. NO SIGNS OF UTI. BACK PAIN REPORTED. SKIN INTACT. VN DISCUSSED PLAN TO DISCHARGE IN THE NEXT FEW WEEKS IF PATIENT REMAINS STABLE. TEACHING: IMPORTANCE OF DIABETIC DIET COMPLIANCE TAUGHT. PATIENT REPORTS UNDERSTANDING. COMMUNICATION WITH MD: NA NEXT MD APPOINTMENT: ULTRASOUND Apr PATIENT AND CAREGIVER INSTRUCTED TO CALL [facility] WITH ANY QUESTIONS OR CONCERNS AND/OR CHANGES IN CONDITION. PATIENT REPORTS UNDERSTANDING NEXT SNV LATE NEXT WEEK</paragraph> Encounters Start Date/Time End Date/Time Encounter Type Admission Type Attending Clinicians Care Facility Care Department Encounter ID Discharge Date Discharge Status Discharge Condition Discharge Reason Percent Goals Met 2024-01-15 00:00:00 2024-05-13 00:00:00 Outpatient RECERTIFIC JESSICA BARNES [facility] [id number] 4
--- OUTSIDE RECORDS SUMMARY | 2024-05-03 17:42 | XMS_ITS | Clinical Summary ---
Author Organization Unknown Care Team Providers Care Animal Science Professor Name Role Phone YUSUF COOK, ILIA Unavailable Unavailab emmy MURRY PT, TONY Unavailable Unavailable JOSE OT, JACQUELINE Unavailable Unavailable MONTAAN RN, VICKY Unavailable Unavailable Payers Payer Name Policy Type Policy Number Effective Date Expira tion Date MEDICARE.NGS.PDGM [id number] Problems Condition Name Condition Details Condition Category Status Onset Date Resolution Date Last Treatment Date Treating Clinician Comments ENCNTR FOR SURGICAL AFTCR FOLLOWING SURGERY ON THE CIRC SYS Active 2019-05 00:00: 00 PRESENCE OF PROSTHETIC HEART VALVE Active 2019-05 00:00: 00 ATHSCL HEART DISEASE OF [place] CORONARY ARTERY W/O ANG PCTRS Active 9-07 00:00: 00 ESSENTIAL (PRIMARY) HYPERTENSION Active 05-25 00:00: 00 TYPE 2 DIABETES W DIABETIC PERIPHERAL ANGIOPATH W/O GANGRENE Active 2019-05 2-23 00:00: 00 PRSNL HX OF TIA (TIA), AND CEREB INFRC W/O RESID DEFICITS Active 2019-05-17 00:00: 00 CHRONIC OBSTRUCTIVE PULMONARY DISEASE, UNSPECIFIED Active - 00:00: 00 OBSTRUCTIVE SLEEP APNEA (ADULT) (PEDIATRIC) Active - 00:00: 00 MORBID (SEVERE) OBESITY DUE TO EXCESS CALORIES Active 05-25 00:00: 00 HYPERLIPIDEM IA, UNSPECIFIED Active - 00:00: 00 HYPO-OSMOLAL ITY AND HYPONATREMIA Active 2019-05 0 00:00: 00 UNSPECIFIED OSTEOARTHRIT IS, UNSPECIFIED SITE Active 1- 00:00: 00 AGE-RELATED OSTEOPOROSIS W/O CURRENT PATHOLOGICAL FRACTURE Active - 00:00: 00 ANEMIA, UNSPECIFIED Active 01-31 00:00: 00 GASTRO-ESOPH AGEAL REFLUX DISEASE WITHOUT ESOPHAGITIS Active 05-25 00:00: 00 VITAMIN D DEFICIENCY, UNSPECIFIED Active 05-25 00:00: 00 RETENTION OF URINE, UNSPECIFIED Active 2019-05 0 00:00: 00 PRESENCE OF CORONARY ANGIOPLASTY IMPLANT AND GRAFT Active 01-23 00:00: 00 HISTORY OF FALLING Active 2019-05 00:00: 00 BODY MASS INDEX [BMI] 38.0-38.9, ADULT Active 2019-05 00:00: 00 MODEL MAKER PLASTER (CURRENT) USE OF INSULIN Active 2019-05 00:00: 00 JAIL (CURRENT) USE OF ANTITHROMBOT ICS/ANTIPLAT ELETS Active 2019-05 00:00: 00 MODEL MAKER PLASTER (CURRENT) USE OF INHALED STEROIDS Active 2019-05 00:00: 00 MODEL MAKER PLASTER (CURRENT) USE OF ASPIRIN Active 2019-05 00:00: 00 Allergies, Adverse Reactions, Alerts Allergy Name Allergy Type Status Severity Reaction(s) Onset Date Inactive Date Treating Clinician Comments ADVIL Propensity to adverse reactions Active 2019-05 16:03: 52 AMOXICILLIN Propensity to adverse reactions Active 2019-05 16:05: 11 ASPIRIN Propensity to adverse reactions Active 2019-05 16:02: 12 BACTRIM Propensity to adverse reactions Active 2019-05 16:02: 52 CEFUROXIME Propensity to adverse reactions Active 2019-05 16:03: 45 CEPHALEXIN Propensity to adverse reactions Active 2019-05 16:01: 58 DOXYCYCLINE Propensity to adverse reactions Active 2019-05 16:05: 20 IBUPROFEN Propensity to adverse reactions Active 2019-05 15:59: 52 LEVAQUIN Propensity to adverse reactions Active 2019-05 16:03: 31 ACTOS Propensity to adverse reactions Active 2019-05 16:03: 09 ALENDRONATE SODIUM Propensity to adverse reactions Active 2019-05 16:02: 35 AMYTAL Propensity to adverse reactions Active 2019-05 15:59: 35 AVELOX Propensity to adverse reactions Active 2019-05 16:03: 21 CIPROFLOXACI N Propensity to adverse reactions Active 2019-05 16:05: 36 DILTIAZEM Propensity to adverse reactions Active 2019-05 16:01: 40 FORTEO Propensity to adverse reactions Active 2019-05 16:03: 01 GLIMEPIRIDE Propensity to adverse reactions Active 2019-05 16:01: 19 INDOMETHACIN Propensity to adverse reactions Active 2019-05 16:04: 51 LEVOFLOXACIN Propensity to adverse reactions Active 2019-05 16:00: 46 MOXIFLOXACIN Propensity to adverse reactions Active 2019-05 16:00: 32 SULFA (SULFONAMIDE S) Propensity to adverse reactions Active 2019-05 16:00: 07 ZAFIRLUKAST Propensity to adverse reactions Active 2019-05 16:04: 27 ERYTHROMYCIN Propensity to adverse reactions Active 2019-05 16:05: 28 Medications Ordered Medication Name Filled Medication Name Start Date Stop Date Current Medication? Ordering Clinician Indication Dosage Frequency Signature (SIG) Comments Components Fluzone High-Dose Quad (PF) 240 mcg/0.7 mL IM syringe 2019-05 00:00: 00 03-29 00:00 :00 No [id number] Per instruc tions Per instructio ns (route: intramuscu lar) Med Classific ation: Biologica ls Advair Diskus 250 mcg-50 mcg/dose powder for inhalation 2019-05 00:00: 00 Yes [id number] 1 inhalat ion 2 TIMES DAILY 1 inhalation 2 TIMES DAILY (route: inhalation ) Med Classific ation: Respirato ry Therapy Agents Spiriva Respimat 2.5 mcg/actuati on solution for inhalation 01-17 00:00: 00 Yes [id number] 1 inhalat ion DAILY 1 inhalation DAILY (route: inhalation ) Med Classific ation: Respirato ry Therapy Agents albuterol sulfate HFA 90 mcg/actuati on aerosol inhaler 01-18 00:00: 00 Yes [id number] 2 inhalat ion EVERY 6 HOURS 2 inhalation EVERY 6 HOURS (route: inhalation ) Med Classific ation: Respirato ry Therapy Agents fluticasone propionate 50 mcg/actuati on nasal spray,suspe nsion 2019-05 00:00: 00 Yes [id number] 1 spray DAILY 1 spray DAILY (route: nasal) Med Classific ation: Respirato ry Therapy Agents furosemide 40 mg tablet 2019-05 0-08 00:00: 04-25 23:59 :00 No [id number] 1 tablet DAILY 1 tablet DAILY (route: oral) Med Classific ation: Cardiovas cular Therapy Agents furosemide 40 mg tablet 9-15 00:00: 03-29 00:00 :00 No [id number] Per instruc tions Per instructio ns (route: oral) Med Classific ation: Cardiovas cular Therapy Agents metoclopram tucker 5 mg tablet 9-26 00:00: 00 Yes [id number] 1 tablet 2 TIMES DAILY 1 tablet 2 TIMES DAILY (route: oral) Med Classific ation: Gastroint estinal Therapy Agents pravastatin 80 mg tablet 2019-05 0-18 00:00: 00 Yes [id number] 1 tablet DAILY 1 tablet DAILY (route: oral) Med Classific ation: Cardiovas cular Therapy Agents glyburide 5 mg tablet 9-30 00:00: 00 Yes [id number] 1 tablet DAILY 1 tablet DAILY (route: oral) Med Classific ation: Endocrine amitriptyli ne 10 mg tablet 8-13 00:00: 00 Yes [id number] 1 tablet DAILY 1 tablet DAILY (route: oral) Med Classific ation: Central Nervous System Agents ezetimibe 10 mg tablet 7-27 00:00: 00 Yes [id number] 1 tablet DAILY 1 tablet DAILY (route: oral) Med Classific ation: Cardiovas cular Therapy Agents omeprazole 20 mg capsule,del ayed release 7-20 00:00: 00 03-29 00:00 :00 No [id number] Per instruc tions Per instructio ns (route: oral) Med Classific ation: Gastroint estinal Therapy Agents clopidogrel 75 mg tablet 2019-05 0-08 00:00: 00 Yes [id number] 1 tablet DAILY 1 tablet DAILY (route: oral) Med Classific ation: Hematolog ical Agents montelukast 10 mg tablet 7-22 00:00: 00 Yes [id number] 1 tablet DAILY 1 tablet DAILY (route: oral) Med Classific ation: Respirato ry Therapy Agents pantoprazol e 20 mg tablet,angel yed release 2019-05 008 00:00: 00 Yes [id number] 1 tablet DAILY 1 tablet DAILY (route: oral) Med Classific ation: Gastroint estinal Therapy Agents clopidogrel 75 mg tablet 02-06 00:00: 03-29 00:00 :00 No [id number] Per instruc tions Per instructio ns (route: oral) Med Classific ation: Hematolog ical Agents nitrofurant oin macrocrysta l 50 mg capsule 02-17 00:00: 00 03-29 00:00 :00 No [id number] Per instruc tions Per instructio ns (route: oral) Med Classific ation: Genitouri nary Therapy metoprolol tartrate 50 mg tablet 02-17 00:00: 00 Yes [id number] 1 tablet 2 TIMES DAILY 1 tablet 2 TIMES DAILY (route: oral) Med Classific ation: Cardiovas cular Therapy Agents pantoprazol e 20 mg tablet,angel yed release 02-06 00:00: 03-29 00:00 :00 No [id number] Per instruc tions Per instructio ns (route: oral) Med Classific ation: Gastroint estinal Therapy Agents diazepam 2 mg tablet 2019-05 013 00:00: 00 Yes [id number] 1 tablet 2 TIMES DAILY 1 tablet 2 TIMES DAILY (route: oral) Med Classific ation: Central Nervous System Agents lisinopril 20 mg tablet 02-17 00:00: 00 Yes [id number] 1 tablet DAILY 1 tablet DAILY (route: oral) Med Classific ation: Cardiovas cular Therapy Agents amlodipine 2.5 mg tablet 2019-05 1-04 00:00: 00 Yes [id number] 1 tablet DAILY 1 tablet DAILY (route: oral) Med Classific ation: Cardiovas cular Therapy Agents metformin ER 500 mg tablet,exte nded release 24 hr 824 00:00: 00 Yes [id number] 2 tablet 2 TIMES DAILY 2 tablet 2 TIMES DAILY (route: oral) Med Classific ation: Endocrine Basaglar KwikPen U-100 Insulin 100 unit/mL (3 mL) subcutaneou s 02-17 00:00: 00 05-16 23:59 :00 No [id number] 10 unit DAILY 10 unit DAILY (route: subcutaneo us) Med Classific ation: Endocrine BD Ultra-Fine Shivani Pen Needle 32 gauge x /14 00:00: 00 03-29 00:00 :00 No [id number] Per instruc tions Per instructio ns (route: miscellane ous) Med Classific ation: Medical Supplies and Durable Medical Equipment (DME) Acetaminoph en Extra Strength 500 mg tablet 2019-05 00:00: 00 Yes [id number] 2 tablet 3 TIMES DAILY 2 tablet 3 TIMES DAILY (route: oral) Med Classific ation: Analgesic , Anti-infl ammatory or Antipyret ic Aspirin Low Dose 81 mg tablet,angel yed release 2019-05 00:00: 00 Yes [id number] 1 tablet DAILY 1 tablet DAILY (route: oral) Med Classific ation: Hematolog ical Agents Calcium 600 + D(3) 600 mg (1,500 mg)-200 unit tablet 2019-05 00:00: 00 Yes [id number] 1 tablet DAILY 1 tablet DAILY (route: oral) Med Classific ation: Electroly te Balance-N utritiona l Products Fish Oil 1,000 mg (120 mg-180 mg) capsule 2019-05 00:00: 00 Yes [id number] 1 capsule DAILY 1 capsule DAILY (route: oral) Med Classific ation: Cardiovas cular Therapy Agents magnesium oxide 400 mg (241.3 mg magnesium) tablet 2019-05 00:00: 00 Yes [id number] 1 tablet DAILY 1 tablet DAILY (route: oral) Med Classific ation: Electroly te Balance-N utritiona l Products multivitami n tablet 2019-05 00:00: 00 Yes [id number] 1 tablet DAILY 1 tablet DAILY (route: oral) Med Classific ation: Electroly te Balance-N utritiona l Products Novolog Flexpen U-100 Insulin aspart 100 unit/mL (3 mL) subcutaneou s 2019-05 00:00: 00 Yes [id number] 4 unit DIRECTED 4 unit DIRECTED (route: subcutaneo us) Med Classific ation: Endocrine Novolog Flexpen U-100 Insulin aspart 100 unit/mL (3 mL) [facility] 2019-05 00:00: 00 Yes [id number] 6 unit DIRECTED 6 unit DIRECTED (route: [facility]) Med Classific ation: Endocrine Novolog Flexpen U-100 Insulin aspart 100 unit/mL (3 mL) [facility] 2019-05 00:00: 00 Yes [id number] 8 unit DIRECTED 8 unit DIRECTED (route: [facility]) Med Classific ation: Endocrine Novolog Flexpen U-100 Insulin aspart 100 unit/mL (3 mL) [facility] 2019-05 00:00: 00 Yes [id number] 10 unit DIRECTED 10 unit DIRECTED (route: [facility]) Med Classific ation: Endocrine Vitamin D3 25 mcg (1,000 unit) capsule 2019-05 00:00: 00 Yes [id number] 1 capsule DAILY 1 capsule DAILY (route: oral) Med Classific ation: Electroly te Balance-N utritiona l Products Lasix 20 mg tablet 2019-05 00:00: 00 Yes [id number] 20 mg DAILY 20 mg DAILY (route: oral) Med Classific ation: Cardiovas cular Therapy Agents Basaglar KwikPen U-100 Insulin 100 unit/mL (3 mL) [facility] 2019-05 00:00: 00 Yes [id number] 1 unit DAILY 1 unit DAILY (route: [facility]) Med Classific ation: Endocrine prednisone 20 mg tablet 1-06 00:00: 00 06-04 23:59 :00 No [id number] 1 tablet DAILY 1 tablet DAILY (route: oral) Med Classific ation: Endocrine cefuroxime axetil 500 mg tablet 1-14 00:00: 00 06-17 23:59 :00 No [id number] 1 tablet 2 TIMES DAILY 1 tablet 2 TIMES DAILY (route: oral) Med Classific ation: Anti-Infe ctive Agents Macrodantin 50 mg capsule 2- 00:00: 00 Yes [id number] 1 capsule 2 TIMES DAILY 1 capsule 2 TIMES DAILY (route: oral) Med Classific ation: Genitouri nary Therapy Immunizations Ordered Immunization Name Filled Immunization Name Date Status Comments Refusal Reason INFLUENZA, INFLUENZA 2020-02-27 00:00:00 Vital Signs Vital Name Observation Time Observation Value Commen ts Temperature 2020-07-25 13:23:36.000 97.5 [degF] Temperature 2020-07-10 10:27:37.000 96.7 [degF] Temperature 2020-06-27 10:09:49.000 96.7 [degF] Temperature 2020-06-22 10:29:51.000 97.1 [degF] Temperature 2020-06-12 12:40:51.000 96.7 [degF] Temperature 2020-06-06 10:22:39.000 96.7 [degF] Temperature 2020-05-30 11:16:21.000 96.7 [degF] Pulse 2020-07-25 13:23:55.000 64 /min Pulse 2020-07-10 10:27:44.000 84 /min Pulse 2020-06-27 10:09:55.000 74 /min Pulse 2020-06-22 10:29:59.000 74 /min Pulse 2020-06-12 12:40:58.000 74 /min Pulse 2020-06-06 10:22:48.000 74 /min Pulse 2020-05-30 11:16:31.000 74 /min O2 Saturation (%) 2020-07-25 13:25:27.000 97 % O2 Saturation (%) 2020-07-10 10:28:21.000 96 % O2 Saturation (%) 2020-06-27 10:10:40.000 98 % O2 Saturation (%) 2020-06-22 10:31:05.000 96 % O2 Saturation (%) 2020-06-12 12:41:27.000 98 % O2 Saturation (%) 2020-06-06 10:23:40.000 95 % O2 Saturation (%) 2020-05-30 11:17:28.000 96 % Respirations 2020-07-25 13:24:04.000 18 /min Respirations 2020-07-10 10:27:52.000 18 /min Respirations 2020-06-27 10:10:01.000 18 /min Respirations 2020-06-22 10:30:15.000 18 /min Respirations 2020-06-12 12:41:04.000 18 /min Respirations 2020-06-06 10:22:55.000 18 /min Respirations 2020-05-30 11:16:38.000 18 /min Weight (lbs) 2020-07-25 13:09:43.000 170.8 [lb_av] Weight (lbs) 2020-07-10 10:28:15.000 169.4 [lb_av] Weight (lbs) 2020-06-27 10:10:30.000 170.6 [lb_av] Weight (lbs) 2020-06-22 10:31:41.000 169.4 [lb_av] Weight (lbs) 2020-06-12 12:41:39.000 170.2 [lb_av] Weight (lbs) 2020-06-06 10:23:56.000 169.6 [lb_av] Weight (lbs) 2020-05-30 11:17:17.000 169.6 [lb_av] Systolic Blood Pressure 2020-07-25 13:24:34.000 140 mm [Hg] Systolic Blood Pressure 2020-07-10 10:28:00.000 128 mm [Hg] Systolic Blood Pressure 2020-06-27 10:10:09.000 120 mm [Hg] Systolic Blood Pressure 2020-06-22 10:30:27.000 140 mm [Hg] Systolic Blood Pressure 2020-06-12 12:41:13.000 122 mm [Hg] Systolic Blood Pressure 2020-06-06 10:23:18.000 128 mm [Hg] Systolic Blood Pressure 2020-05-30 11:16:56.000 102 mm [Hg] Diastolic Blood Pressure 2020-07-25 13:24:34.000 70 mm [Hg] Diastolic Blood Pressure 2020-07-10 10:28:00.000 62 mm [Hg] Diastolic Blood Pressure 2020-06-27 10:10:09.000 68 mm [Hg] Diastolic Blood Pressure 2020-06-22 10:30:27.000 60 mm [Hg] Diastolic Blood Pressure 2020-06-12 12:41:13.000 74 mm [Hg] Diastolic Blood Pressure 2020-06-06 10:23:18.000 74 mm [Hg] Diastolic Blood Pressure 2020-05-30 11:16:56.000 68 mm [Hg] Plan of Treatment Planned Activity Planned Date Details Comments Future Scheduled Test MEDICATION MANAGEMENT; SKILLED NURSE TO REVIEW MEDICATIONS FOR INTERACTIONS, EFFECTIVENESS OF DRUG THERAPY, AND SIGNS/SYMPTOMS OF ADVERSE REACTIONS. MAY INSTRUCT AND REINFORCE MEDICATION TEACHING RELATED TO THE USE OF MEDICATIONS, DOSAGE, FREQUENCY, PURPOSE, SIDE EFFECTS, AND TO REPORT COMPLICATIONS. [code = MEDICATION MANAGEMENT; SKILLED NURSE TO REVIEW MEDICATIONS FOR INTERACTIONS, EFFECTIVENESS OF DRUG THERAPY, AND SIGNS/SYMPTOMS OF ADVERSE REACTIONS. MAY INSTRUCT AND REINFORCE MEDICATION TEACHING RELATED TO THE USE OF MEDICATIONS, DOSAGE, FREQUENCY, PURPOSE, SIDE EFFECTS, AND TO REPORT COMPLICATIONS. ] Future Scheduled Test FALL REDUC TION MANAGEMENT; NURSING TO PROVIDE SKILLED ASSESSMENT, EDUCATION, AND INTERVENTION TO IDENTIFY FALL RISK FACTORS SUCH MEDICATIONS THAT MAY CAUSE DIZZINESS, CHRONIC DISEASES, PSYCHOLOGICAL FACTORS, AND EMPOWER/EDUCATE PATIENT/CAREGIVER TO MINIMIZE FALL RISK. [code = FALL REDUCTION MANAGEMENT; NURSING TO PROVIDE SKILLED ASSESSMENT, EDUCATION, AND INTERVENTION TO IDENTIFY FALL RISK FACTORS SUCH MEDICATIONS THAT MAY CAUSE DIZZINESS, CHRONIC DISEASES, PSYCHOLOGICAL FACTORS, AND EMPOWER/EDUCATE PATIENT/CAREGIVER TO MINIMIZE FALL RISK. ] Future Scheduled Test DIABETES M ANAGEMENT; SKILLED NURSE FOR INSTRUCTIONS OF DIABETIC CARE TO INCLUDE: DIET, SKIN CARE, SIGNS AND SYMPTOMS OF HYPO/HYPERGLYCEMIA,PROPER ADMINISTRATION OF DIABETIC MEDICATION. SKILLED NURSE TO INSTRUCT ON DIABETIC FOOT CARE AND MONITOR FOR SKIN LESIONS ON LOWER EXTREMITIES. BLOOD GLUCOSE TESTING TID FREQ. SKILLED NURSE TO ASSESS PATIENT/CAREGIVER ABILITY TO PERFORM AND RECORD BLOOD GLUCOSE TESTING ORDERED AND TO REPORT ABNORMAL FINDINGS TO PHYSICIAN. SKILLED NURSE MAY PERFORM BLOOD GLUCOSE TEST NEEDED. . SKILLED NURSE TO INSTRUCT PATIENT ON IMPORTANCE OF HGBA1C MONITORING, KIDNEY FUNCTION TEST, EYE AND FOOT EXAMS. [code = DIABETES MANAGEMENT; SKILLED NURSE FOR INSTRUCTIONS OF DIABETIC CARE TO INCLUDE: DIET, SKIN CARE, SIGNS AND SYMPTOMS OF HYPO/HYPERGLYCEMIA,PROPER ADMINISTRATION OF DIABETIC MEDICATION. SKILLED NURSE TO INSTRUCT ON DIABETIC FOOT CARE AND MONITOR FOR SKIN LESIONS ON LOWER EXTREMITIES. BLOOD GLUCOSE TESTING TID FREQ. SKILLED NURSE TO ASSESS PATIENT/CAREGIVER ABILITY TO PERFORM AND RECORD BLOOD GLUCOSE TESTING ORDERED AND TO REPORT ABNORMAL FINDINGS TO PHYSICIAN. SKILLED NURSE MAY PERFORM BLOOD GLUCOSE TEST NEEDED. . SKILLED NURSE TO INSTRUCT PATIENT ON IMPORTANCE OF HGBA1C MONITORING, KIDNEY FUNCTION TEST, EYE AND FOOT EXAMS.] Future Scheduled Test SKILLED NU RSE TO ASSESS, EVALUATE, AND DEVELOP AN INDIVIDUALIZED PLAN OF CARE. AGENCY MAY ACCEPT ORDERS FROM CONSULTING PHYSICIANS SN TO OBSERVE/ASSESS RISK FOR FALLS AND INSTRUCT IN FALL PREVENTION, HOME SAFETY, MEDICATION MANAGEMENT, INFECTION PREVENTION, AND NUTRITION MANAGEMENT. SN MAY PERFORM O2 SATURATION LEVEL ON ADMISSION AND PRN TO ASSESS PATIENT, WITH NOTIFICATION TO THE PHYSICIAN IF SATURATION IS 90% IN THE ABSENCE OF MORE SPECIFIC PARAMETERS FROM THE PHYSICIAN. AGENCY MAY PERFORM A RESUMPTION OF CARE VISIT FOLLOWING ANY HOSPITAL ADMISSION. ALL DISCIPLINES (EXCEPT [facility]) MAY PROVIDE TELEHEALTH PHONE/REMOTE/VIRTUAL VISITS IN LIEU OF AN IN-PERSON VISIT THAT DOES NOT REQUIRE HANDS ON OR IN PERSON ASSESSMENT WHEN AN IN-PERSON VISIT IS NOT POSSIBLE DUE TO THE PUBLIC HEALTH EMERGENCY RELATED TO THE COVID-19 PANDEMIC. SKILLED NURSE TO INSTRUCT PATIENT / CAREGIVER ON DISEASE PROCESS, SELF MANAGEMENT, SIGNS AND SYMPTOMS TO REPORT TO SN/PHYSICIAN, RELATED TO: [code = SKILLED NURSE TO ASSESS, EVALUATE, AND DEVELOP AN INDIVIDUALIZED PLAN OF CARE. AGENCY MAY ACCEPT ORDERS FROM CONSULTING PHYSICIANS SN TO OBSERVE/ASSESS RISK FOR FALLS AND INSTRUCT IN FALL PREVENTION, HOME SAFETY, MEDICATION MANAGEMENT, INFECTION PREVENTION, AND NUTRITION MANAGEMENT. SN MAY PERFORM O2 SATURATION LEVEL ON ADMISSION AND PRN TO ASSESS PATIENT, WITH NOTIFICATION TO THE PHYSICIAN IF SATURATION IS 90% IN THE ABSENCE OF MORE SPECIFIC PARAMETERS FROM THE PHYSICIAN. AGENCY MAY PERFORM A RESUMPTION OF CARE VISIT FOLLOWING ANY HOSPITAL ADMISSION. ALL DISCIPLINES (EXCEPT [facility]) MAY PROVIDE TELEHEALTH PHONE/REMOTE/VIRTUAL VISITS IN LIEU OF AN IN-PERSON VISIT THAT DOES NOT REQUIRE HANDS ON OR IN PERSON ASSESSMENT WHEN AN IN-PERSON VISIT IS NOT POSSIBLE DUE TO THE PUBLIC HEALTH EMERGENCY RELATED TO THE COVID-19 PANDEMIC. SKILLED NURSE TO INSTRUCT PATIENT / CAREGIVER ON DISEASE PROCESS, SELF MANAGEMENT, SIGNS AND SYMPTOMS TO REPORT TO SN/PHYSICIAN, RELATED TO:] Future Scheduled Test PAIN MANAG EMENT; SKILLED NURSE TO OBSERVE, ASSESS, AND PROVIDE EDUCATION ON PAIN MANAGEMENT TECHNIQUES. [code = PAIN MANAGEMENT; SKILLED NURSE TO OBSERVE, ASSESS, AND PROVIDE EDUCATION ON PAIN MANAGEMENT TECHNIQUES. ] Future Scheduled Test CARDIOVASC ULAR SYSTEM; SKILLED NURSE TO ASSESS AND TEACH RELATED TO ALTERED CARDIOVASCULAR STATUS TO MINIMIZE COMPLICATIONS AND REDUCE HOSPITALIZATION. [code = CARDIOVASCULAR SYSTEM; SKILLED NURSE TO ASSESS AND TEACH RELATED TO ALTERED CARDIOVASCULAR STATUS TO MINIMIZE COMPLICATIONS AND REDUCE HOSPITALIZATION.] Future Scheduled Test HYPERTENSI ON MANAGEMENT; SKILLED NURSE TO ASSESS/TEACH WARNING SIGNS AND SYMPTOMS TO AVOID HOSPITALIZATION. [code = HYPERTENSION MANAGEMENT; SKILLED NURSE TO ASSESS/TEACH WARNING SIGNS AND SYMPTOMS TO AVOID HOSPITALIZATION.] Goal 2020-04-11 Patient Goal - GET STRONGER Goal 2020-07-25 Patient Goal - GET STRONGER Goal 2020-05-23 Patient Goal - GET STRONGER Goal Provider Goal - PATIENT/CAREGIVER TO VERBALIZE, AND CONSISTENTLY DEMONSTRATE EFFECTIVE, SAFE MANAGEMENT OF MEDICATION INCLUDING KNOWLEDGE OF EFFECTIVENESS, POTENTIAL SIDE EFFECTS AND DRUG REACTIONS AND WHEN TO CONTACT THE APPROPRIATE CARE PROVIDER. PATIENT/CAREGIVER WILL BE ABLE TO VERBALIZE UNDERSTANDING OF MEDICATION REGIMEN AND ACCURATELY TAKE MEDICATIONS PRESCRIBED WITHOUT ADVERSE EFFECTS Goal Provider Goal - PATIENT/CAREGIVER ABLE TO IDENTIFY FALL RISK FACTORS AND IMPLEMENT STRATEGIES TO MINIMIZE FALL RISK. PATIENT/CAREGIVER WILL VERBALIZE/DEMONSTRATE AN ABILITY TO ADHERE TO FALL REDUCTION SELF MANAGEMENT AND LIFE-STYLE CHANGES AT DISCHARGE. PERSONAL GOAL(S) STATED BY PATIENT/CAREGIVER WILL BE MET Goal Provider Goal - PATIENT / CAREGIVER WILL VERBALIZE / DEMONSTRATE AN ABILITY TO ADHERE TO SELF-MANAGEMENT OF DIABETES MANAGEMENT Goal Provider Goal - A PLAN OF CARE WILL BE ESTABLISHED THAT MEETS THE PATIENT'S NURSING NEEDS BY PATIENT WILL DEMONSTRATE OXYGEN SATURATION WITH NORMAL LIMITS OR TO PATIENT'S OPTIMAL LEVEL ESTABLISHED BY THE PHYSICIAN THROUGHOUT CARE Goal Provider Goal - PATIENT / CAREGIVER WILL VERBALIZE / DEMONSTRATE UNDERSTANDING OF PAIN CONTROL MEASURES Goal Provider Goal - PATIENT / CAREGIVER WILL VERBALIZE/DEMONSTRATE UNDERSTANDING OF MEASURES TO MANAGE ALTERED CARDIOVASCULAR STATUS. Goal Provider Goal - PATIENT / CAREGIVER WILL VERBALIZE/DEMONSTRATE AN ABILITY TO ADHERE TO SELF-MANAGEMENT OF HTN TO MINIMIZE COMPLICATIONS AND AVOID HOSPITALIZATION BY END OF EPISODE. Reason for Visit INDEPENDENT IN THE COMMUNITY Encounters Start Date/Time End Date/Time Encounter Type Admission Type Attending [facility] Care [facility] Care Department Encounter ID Discharge Date Discharge Status Discharge Condition Discharge Reason Percent Goals Met 2020-03-29 00:00:00 2020-07-25 00:00:00 Outpatient RECERTIFIC ATION [place] [facility] [id number] 2020-07-25 00:00:00 DISCHARGE TO HOME OR SELF CARE INDEPENDEN T IN THE COMMUNITY HH OR [facility]- GOALS MET 95.24
== END 2024-04-27 12:05 | disposition home or self-care (01) ==
PROVIDERS: Visit Provider Internal Medicine Rheumatology
DX: M80.00XS Age-related osteoporosis with current pathological fracture, unspecified site, sequela (principal); M54.9 Dorsalgia, unspecified; Z79.899 Other long term (current) drug therapy
CPT/HCPCS: 99214; G2211

== ENCOUNTER → 2024-04-27 10:30 | Outpatient (BNVA) | payer MEDICARE, BC, MEDICAID, SELFPAY | PROVIDERS: Visit Provider Internal Medicine Rheumatology | DX: M80.00XS Age-related osteoporosis with current pathological fracture, unspecified site, sequela (principal); M54.9 Dorsalgia, unspecified; Z79.899 Other long term (current) drug therapy | CPT/HCPCS: 99212 ==

== ENCOUNTER 2024-11-23 09:31 | Outpatient (AMB) | payer MEDICARE, BC, MEDICAID, SELFPAY ==
--- NOTE | 2024-11-23 09:34 | A.OFFVIS_ITS ---
Vital Signs 11/23/24 09:39 Height 4 ft 5 in Weight 164 lb 7.437 oz BMI 41.2 BP 130/70 Blood Pressure Location Lt brachial Position Sitting Pulse 75 Pulse Source Pulse Oximeter Pulse Oximetry (%) 99 Oxygen Delivery Method Room Air Intake Visit Reasons: follow up Intake Note: Patient presents for follow up on osteoporosis. Allergies cephalexin Allergy (Severe, Verified 04/27/24 11:16) Anaphylaxis ceftriaxone Allergy (Intermediate, Verified 04/27/24 11:16) BREATHING PROBLEMS ciprofloxacin (From Cipro) Allergy (Intermediate, Verified 04/27/24 11:16) Anaphylaxis doxycycline Allergy (Intermediate, Verified 04/27/24 11:16) HEADACHE, STOMACH ISSUES morphine Allergy (Unknown, Unverified 04/27/24 11:16) Unknown alendronate sodium Adverse Reaction (Unknown, Verified 04/27/24 11:16) itching, rash ibuprofen Adverse Reaction (Unknown, Unverified 04/27/24 11:16) Hives insulin isophane (NPH) Adverse Reaction (Unknown, Unverified 04/27/24 11:16) Unknown insulin regular (From Humulin 70/30 U-100 Insulin) Adverse Reaction (Unknown, Verified 04/27/24 11:16) ITCHING AT SITE levofloxacin Adverse Reaction (Unknown, Verified 04/27/24 11:16) Anaphylaxis oxycodone Adverse Reaction (Unknown, Unverified 04/27/24 11:16) Unknown pioglitazone (From Actos) Adverse Reaction (Unknown, Unverified 04/27/24 11:16) Unknown sulfabenzamide Adverse Reaction (Unknown, Verified 04/27/24 11:16) Stomach Upset zafirlukast Adverse Reaction (Unknown, Unverified 04/27/24 11:16) BREATHING PROBLEMS JARDIANCE Allergy (Severe, Uncoded 04/27/24 11:16) BREATHING PROBLEMS DILTIAZ Allergy (Intermediate, Uncoded 04/27/24 11:16) BREATHING PROBLEMS AMARYL Adverse Reaction (Intermediate, Uncoded 04/27/24 11:16) CONSTIPATION AMATYL Adverse Reaction (Unknown, Uncoded 04/27/24 11:16) Anaphylaxis ERYTHROMYCIN Adverse Reaction (Unknown, Uncoded 04/27/24 11:16) UNKNOWN FORTEO Adverse Reaction (Unknown, Uncoded 04/27/24 11:16) UNKNOWN glimepiride Adverse Reaction (Unknown, Uncoded 04/27/24 11:16) Unknown LEVAQUIN Adverse Reaction (Unknown, Uncoded 04/27/24 11:16) Angioedema moxif Adverse Reaction (Unknown, Uncoded 04/27/24 11:16) Anaphylaxis pioglita Adverse Reaction (Unknown, Uncoded 04/27/24 11:16) Unknown tramadol Adverse Reaction (Unknown, Uncoded 04/27/24 11:16) Unknown HPI HPI follow up: Details: Prior hx of being on forteo for a few months. She stopped it due to pruritis on injection site. She was then on prolia and did not recieve her injection in October/November when she was due 2022. She had a lumbar spine fracture in January 2023. She had Reclast in October 2023 with adverse effect of flu-like symptoms. She takes calcium citrate 650mg with vitamin D 25mcg two tablets at bedtime. She has dentures. No teeth. [facility] Medical History (Updated 11/23/24 @ 10:13 by Steve Odom MD) Common carotid artery injury Physical Exam Vital Signs: Last Vital Signs Pulse 75 11/23/24 09:39 BP 130/70 11/23/24 09:39 Pulse Ox 99 11/23/24 09:39 Oxygen Delivery Method Room Air 11/23/24 09:39 BMI result Body Mass Index 41.2 Const Other: General: Comfortable CVS: RRR Respiratory: clear to auscultation bilaterally. Good respiratory effort Skin: No lesions seen MSK: Tender to palpate lower lumbar spinous process and paraspinal muscles. Lumbar flexion was not assessed as patient has had multiple compression fractures in the past with history of osteoporosis. Normal cervical range of motion. Thoracic kyphosis present. Assessment & Plan Assessment & Plan (1) Osteoporosis: Comment: History of osteoporosis with multiple compression fractures while on treatment with Prolia. Delayed administration of denosumab doses by more than 16 weeks is associated with increased risk for vertebral fracture compared with on-time dosing, which likely led to her lumbar compression fracture in January 2023. She received Reclast infusion 11/12/2023 with flu-like symptoms as side effect. 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 April 2024 labs show calcium and vitamin-D is within normal range. I will await results of next bone density test before determining next step in treatment. Rheumatology history: Prior treatment for a few months on Forteo causing pruritus at injection site leading to discontinuation. She was on Prolia in the past then missed a dose in November 2022 and suffered a compression fracture in lumbar spine in January 2023. She had Reclast and experienced flu- like symptoms with increased back pain. Code(s): M81.0 - Age-related osteoporosis without current pathological fracture Category: Medical Qualifiers: Encounter type: sequela Osteoporosis type: age-related Presence of current pathological fracture: with current pathological fracture Qualified Code(s): M80.00XS - Age-related osteoporosis with current pathological fracture, unspecified site, sequela Plan: Continue calcium citrate 600 mg and vitamin-D 25 mcg 2 tablets daily at bedtime Continue dietary calcium intake: 4 oz yogurt x2 daily Bone density ordered at [facility] for February 2025 per patient's request as she has had bone densities in the past at [facility] Requesting MRI lumbar spine from [facility] performed after October 2023 Return to clinic March 2025 to review results (2) Other gta (current) drug therapy: Code(s): Z79.899 - Other group home (current) drug therapy Category: Medical Plan: See above Orders: Orders XR DEXA appendicular skeleton Today M80.00XS - Age-related osteoporosis with current pathological fracture, unspecified site, sequela, Z79.899 - Other gta (current) drug therapy XR DEXA axial skeleton Today M80.00XS - Age-related osteoporosis with current pathological fracture, unspecified site, sequela, Z79.899 - Other group home (current) drug therapy Coding Level of Care Code Est Pt Level 4 (50194) Complex EM visit Add On G2211 Diagnoses Age-related osteoporosis with current pathological fracture, sequela M80.00XS Encounter type: sequela Osteoporosis type: age-related Presence of current pathological fracture: with current pathological fracture Other group home (current) drug therapy Z79.899
[2024-11-23 09:39] VITALS: BP 130/70; PULSE 75; O2SAT 99; BMI 41.2
--- OUTSIDE RECORDS SUMMARY | 2024-11-23 09:47 | XMS_ITS | Clinical Summary ---
Author Organization [facility] Address [address] [place] [address] Care Team Providers Care R And D Lab Technician Name Role Phone Miriam Cole MD Primary Care Provider Tova Baldwin MD Unavailable Unavailable Edmond Bermudez MD Unavailable [phone] Lawrence Hodges MD Unavailable Unavailabl e Allergies Active Allergy Reactions Criticality Noted Date Comments Alendronate Unknown/Patient and Family Unable to Define Medium 11/26/2022 Amobarbital Unknown/Patient and Family Unable to Define Medium 11/26/2022 Moxifloxacin Anaphylaxis High 11/26/2022 Sulfamethoxazole-Trimethopr im Shortness Of Breath High 11/26/2022 Cefepime Other (See Comments) Low 09/30/2024 Syncope Cefuroxime Hives Medium 11/26/2022 Cephalexin Hives Medium 11/26/2022 Diltiazem Hives Medium 11/26/2022 Doxycycline Unknown/Patient and Family Unable to Define Medium 11/26/2022 Erythromycin Unknown/Patient and Family Unable to Define Medium 11/26/2022 Parathyroid Hormone (Recomb) Itching Low 11/26/2022 Glimepiride Unknown/Patient and Family Unable to Define Medium 11/26/2022 Ibuprofen Hives Medium 11/26/2022 Indomethacin Unknown/Patient and Family Unable to Define Medium 11/26/2022 Insulin Isophane Itching Low 11/26/2022 Empagliflozin Unknown/Patient and Family Unable to Define Medium 11/26/2022 Levofloxacin Hives Medium 11/26/2022 Pioglitazone Unknown/Patient and Family Unable to Define Medium 11/26/2022 Zafirlukast Unknown/Patient and Family Unable to Define Medium 11/26/2022 Medications PANTOprazole (PROTONIX) 40 MG EC tabletIndications: Gastroesophageal reflux disease with esophagitis without hemorrhage Take 1 tablet (40 mg total) by mouth 2 times a day. Active fluticasone-salmet coral (ADVAIR) 250-50 mcg/inh diskus inhalerIndications :Dyspnea and respiratory abnormalities Inhale 1 puff 2 (two) times a day. Active albuterol (PROAIR RESPICLICK) 108 (90 Base) MCG/ACT inhalerIndications :Dyspnea and respiratory abnormalities Inhale 1 puff 4 times daily (every 6 hours) as needed for wheezing. Active clopidogrel (Plavix) 75 MG tabletIndications: Coronary artery disease involving [place] coronary artery of [place] heart with angina pectoris Take 1 tablet (75 mg total) by mouth daily. Active ezetimibe (ZeTIA) 10 MG tabletIndications: Coronary artery disease involving [place] coronary artery of [place] heart with angina pectoris Take 1 tablet (10 mg total) by mouth daily. Active glyBURIDE (DIAbeta) 5 mg tabletIndications: Type 2 diabetes mellitus without complication, with long-term current use of insulin (HCC) Take 2 tablets (10 mg total) by mouth 2 (two) times a day with meals. Active insulin aspart (NovoLOG) 100 UNIT/ML injectionIndicatio ns:Type 2 diabetes mellitus without complication, with long-term current use of insulin (HCC) Inject 0.02 mL (2 Units total) under the skin 3 (three) times a day before meals. Sliding scale (see instructions ) Active insulin glargine (LANtus/SEMGLEE) 100 units/mL injectionIndicatio ns:Type 2 diabetes mellitus without complication, with long-term current use of insulin (HCC) Inject 0.2 mL (20 Units total) under the skin nightly. Active isosorbide mononitrate (IMDUR) 30 MG 24 hr tabletIndications: Coronary artery disease involving [place] coronary artery of [place] heart with angina pectoris Take 4 tablets (120 mg total) by mouth daily. Active magnesium oxide 400 (240 Mg) MG Tab tablet Take 1 tablet (400 mg total) by mouth 2 (two) times a day. Take 2 hours apart from other medications; take with food Active metFORMIN (GLUCOPHAGE-XR) 500 MG 24 hr tablet Take 2 tablets (1,000 mg total) by mouth 2 times a day. Swallow whole. Do not crush, break or chew. Active metoPROLOL SUCCINATE (TOPROL-XL) 100 MG 24 hr tabletIndications: Coronary artery disease involving [place] coronary artery of [place] heart with angina pectoris Take 1 tablet (100 mg total) by mouth daily. Active montelukast (SINGULAIR) 10 MG tablet Take 1 tablet (10 mg total) by mouth nightly. Active pravastatin (PRAVACHOL) 80 MG tabletIndications: Coronary artery disease involving [place] coronary artery of [place] heart with angina pectoris Take 1 tablet (80 mg total) by mouth daily. Active rivaroxaban (XARELTO) 2.5 MG tabletIndications: Atrial fibrillation, unspecified type (HCC) Take 1 tablet (2.5 mg total) by mouth 2 times a day. Active umeclidinium bromide (INCRUSE ELLIPTA) 62.5 mcg/inh inhaler Inhale 1 puff daily. Active alirocumab (Praluent) 75 MG/ML auto-injector Inject 1 mL (75 mg total) under the skin every 14 days (2 weeks). Active diazepam (VALIUM) 2 MG tablet Take 1 tablet (2 mg total) by mouth 4 times daily (every 6 hours) as needed for anxiety. Active amitriptyline (ELAVIL) 10 MG tablet Take 1 tablet (10 mg total) by mouth nightly. Active furosemide (LASIX) 40 MG tabletIndications: Chronic diastolic congestive heart failure (HCC) Take 1 tablet (40 mg total) by mouth 2 (two) times a day in the morning and the early evening.. 180 tablet 3 4 Active Active Problems Problem Noted Date Diagnosed Date Chronic heart failure with preserved ejection fr action 11/30/2022 Atrial fibrillation 11/30/2022 Encounters Date Type Department Care Team Description 11/17/2024 Telephone [facility] Heart & Vascular [place] - [facility] [address] [facility] [address] [place] [address] Jolie Bennett RN 11/15/2024 2:38 PM EDT - 11/15/2024 11:59 PM EDT Hospital Encounter [facility] Heart [facility] V[facility] [place] [facility] - Echocardiography Laboratory [address] [place] [id number] Edmond Bermudez MD Discharge Disposition: Home or Self Care 11/15/2024 Travel 10/13/2024 Telephone [facility] Heart & Vascular [facility] Heart Failure [place] [address] [place] [address] [place] [address] Jolie Bennett RN 10/13/2024 Telephone [facility] Heart & Vascular [facility] Heart Failure [place] [address] [place] [address] [place] [address] Jolie Bennett RN 09/30/2024 2:00 PM EDT Office Visit [facility] Heart & Vascular [facility] Heart Failure [place] [address] [facility] [place] [place] [address] [place] [address] Edmond Bermudez MD Chronic heart failure with preserved ejection fraction (HCC) (Primary Dx) 09/30/2024 Orders Only [facility] Heart & [facility] [place] [address] [facility] [place] [address] [place] [address] Edmond Bermudez MD Chronic heart failure with preserved ejection fraction (HCC) (Primary Dx) 09/30/2024 Travel from Last 3 Months Social History Tobacco Use Types Packs/Day Years Used Date Smoking Tobacco: Never Smokeless Tobacco: Never Tobacco Cessation:Counseling Given: Not Answered Alcohol Use Standard Drinks/Week Comments Not Currently 0 (1 standard drink = 0.6 oz pur e alcohol) Comments Unknown Sex and Gender Information Value Date Recorded Sex Assigned at Female 10/06/2022 9:58 AM EDT Legal Sex Female 2:09 PM EDT Gender Identity Female 12/06/2022 2:11 PM EDT Sexual Orientation Choose not to disclose 2022 11:59 PM EDT Last Filed Vital Signs Vital Sign Reading Time Taken Comments Blood Pressure 108/55 09/30/2024 1:59 PM EDT Pulse 78 09/30/2024 1:59 PM EDT Temperature 35.9 C (96.6 F) 12/12/2022 12:11 AM EDT Respiratory Rate 18 12/12/2022 4:39 AM EDT Oxygen Saturation 98% 09/30/2024 1:59 PM EDT Inhaled Oxygen Concentration - - Weight 73.2 kg (161 lb 6 oz) 09/30/2024 1:59 PM EDT Height 137.2 cm (4' 6 ) 09/30/2024 1:59 PM EDT Body Mass Index 38.91 09/30/2024 1:59 PM EDT Plan of Treatment Health Maintenance Due Date Last Done Comments Hepatitis C Virus Screening 1950 DTaP/Tdap/Td Vaccines (1 - Tdap) 1971 Pneumococcal Vaccines 50+ (1 of 2 - PCV) 1971 Mammogram 1992 Colonoscopy 1997 Zoster (Shingles) Vaccine (1 of 2) 2002 RSV Vaccine 60 years and older and Patients (1 - Risk 60-74 years 1-dose series) 2012 DXA Bone Density (Females,Ages 65 and older) 2017 COVID-19 Vaccine (2023- season) 2024 04/09/2024, 04/05/2023, 04/20/2022, Additional history exists Influenza Vaccine 12/23/2024 04/09/2024, , 04/02/2022, Additional history exists Hepatitis B Vaccines Aged Out No long er eligible based on patient's age to complete this topic Procedures Procedure Name Priority Date/Time Associated Diagnosis Comments ECHOCARDIOGRAM (TTE) COMPREHENSIVE (CONTRAST PRN) Routine 11/15/2024 3:50 PM EDT Chronic heart failure with preserved ejection fraction (HCC) from Last 3 Months Results * ECHOCARDIOGRAM COMPREHENSIVE WITH CONTRAST (11/15/2024 3:50 PM EDT) LV Diastolic Volume Index (F:29-61, M:35-75) 53.1 mL/m2 LV Diastolic Volume 86 mL LV Systolic Volume Index (F:8-24, M:11-31) 16.7 mL/m2 LV Systolic Volume 27 mL IVS (F:0.6-0.9, M:0.6-1.0) 0.9 cm IVS Mean (F:0.6-0.9, M:0.6-1.0) 0.9 cm LVIDD (F:3.8-5.2, M:4.2-5.8) 3.3 cm LVIDD Mean (F:3.8-5.2, M:4.2-5.8) 3.3 cm LVIDS (F:2.2-3.5, M:2.5-4.0) 2.6 cm LVIDS (F:2.2-3.5, M:2.5-4.0) 2.6 cm LVOT diameter 1.9 cm LVOT diameter mean 1.9 cm LVOT mn grad mean 3.0 mmHg LVOT VTI MEAN 24.5 cm LVOT mn grad 3.0 mmHg LVOT VTI 24.5 cm LVOT peak cristopher 1.2 m/s LVOT peak cristopher mean 1.2 m/s PW (F:0.6-0.9, M:0.6-1.0) 1.0 cm PW Mean (F:0.6-0.9, M:0.6-1.0) 1.0 cm MV E' Lateral Velocity 9.36 cm/s MV E' Lateral Velocity Mean 9.36 cm/s MV E' Septal Velocity 5.87 cm/s MV E' Septal Velocity Mean 5.87 cm/s LA sup-inf (apical 2-ch view) 5.55 cm LA volume 49.7 mL AV mean gradient 8.0 mmHg Ao VTI 37.8 cm Ao peak cristopher 1.9 m/s Ao peak cristopher mean 1.9 m/s Sinuses of Valsalva 2.7 cm Sinuses of Valsalva Mean 2.7 cm Ascending aorta 3.2 cm Ascending aorta mean 3.2 cm Ascending aorta Index 2.0 cm/m2 E wave decelartion time 235 ms E wave decelartion time mean 235 ms MV Peak A-Wave 146.0 cm/s MV Peak A-Wave Mean 146.0 cm/s MV Peak E-Wave 107.0 cm/s MV Peak E-Wave Mean 107.0 cm/s MV mean gradient mean 5.0 mmHg MV VTI MEAN 39.4 cm MV mean gradient 5.0 mmHg MV VTI 39.4 cm MV peak gradient 9.0 mmHg RV Free wall pk S' 9.8 cm/s RV Free wall pk S' Mean 9.8 cm/s Tapse 0.8 cm Tapse Mean 0.8 cm TR Peak Cristopher 2.6 m/s Heart Rate 87 bpm BP Systolic 138 mmHg BP Diastolic 62 mmHg Height 56.00 inches Weight 161.00 lbs TR Peak Gradient 27 mmHg LA Volume Index (16-34) 30.7 mL/m2 E/E' ratio 11.43 AV peak gradient 14.4 mmHg LVOT stroke volume 69 mL LVOT area 2.8 cm2 E/A ratio 0.73 MV valve area by continuity eq 1.8 cm2 AV LVOT peak gradient 5.8 mmHg Dimensionless Index 0.65 SVI 41 mL/m2 AV area by cont VTI 1.8 cm2 Sinuses of Valsalva Index 1.7 cm/m2 Valve area - Index 1.1 cm2/m2 Pierre BP EF (55-75) 69 % E/E' Average 14.8 E/E' Septal 18.2 E/E' Lateral 11.4 LVOT SI 42.88 mL/m2 Left Ventricular Cardiac Index 3.7 L/min/m2 Left Ventricular Cardiac Output 6.0 L/min BSA 1.62 m2 LV mass 87.7 g LV Mass Index (F:43-95, M:49-115) 54.2 g/m2 LV RWT 0.61 Est. RA pres 3 mmHg RVSP 30 mmHg PASP 30.0 mmHg MV stenosis pressure 1/2 time 174 ms MV valve area p 1/2 method 1.26 cm2 Anatomical Region Laterality Modality Heart Ultrasound Narrative 11/15/2024 4:14 PM EDT Left ventricular systolic function is normal. The quantitative EF by 2D Pierre biplane is 69%. Right ventricular systolic function is normal. There is no evidence of hemodynamically significant valvular disease. The mitral leaflets are mildly thickened. There is mild to moderate mitral stenosis. There is no previous study for comparison in our system. Technical Details Definity contrast was used during the study. Overall the study quality was fair. The study was technically difficult. Left Ventricle The left ventricle is normal in size. Wall thickness is normal. Left ventricular systolic function is normal. The quantitative EF by 2D Pierre biplane is 69%. No wall motion abnormalities are present. Left atrial filling pressure is elevated. Right Ventricle The right ventricle is normal in size. Right ventricular systolic function is normal. Left Atrium Left atrial size is normal. Right Atrium Right atrial size is normal. Based on IVC diameter and collapse, right atrial pressure is estimated to be normal (3 mmHg). Mitral Valve The mitral leaflets are mildly thickened. There is moderate mitral annular calcification. There is trace mitral regurgitation.There is mild to moderate mitral stenosis. Tricuspid Valve There is trace tricuspid regurgitation. The estimated right ventricular systolic pressure is normal at 30 mmHg. Aortic Valve The aortic valve was not well visualized. There is no aortic regurgitation or stenosis. Pulmonic Valve The pulmonic valve was not well visualized. Ascending Aorta The aortic root dimension is normal. Pericardium There is no pericardial effusion. Prior Study There is no previous study for comparison in our system. Edmond Bermudez MD CV ECHO ORDERABLES Final Resu lt from Last 3 Months Insurance MEDICARE PART A & B [facility] MEDICARE PART A & B Care Teams R And D Lab Technician Relationship Specialty Start Date End Date Miriam Cole MD [address] [address] PCP - General Internal Medicine 10/06/22 Tova Baldwin MD [address] [address] 11/26/22 Edmond Bermudez MD [address] [place] [address] [place] [id number] Cardiovascular Disease 11/26/22 Lawrence Hodges MD [address] [place] [address] Referring Provider 12/18/22
--- OUTSIDE RECORDS SUMMARY | 2024-11-23 09:47 | XMS_ITS | Clinical Summary ---
Author Organization [facility] Address [address] [facility] [address] [place] [address] Phone Care Team Providers Care Circular Saw Operator Name Role Phone Miriam Cole MD Primary Care Provider + [phone] Allergies Active Allergy Reactions Criticality Noted Date Comments Adhesive Tape Other (see comments) 09/26/2021 Alendronate Other (see comments) 03/15/2021 Amobarbital 06/25/2016 Amoxicillin Other (see comments) 03/15/2021 Aspirin Other (see comments) 03/15/2021 Cefuroxime Other (see comments) 03/15/2021 Cephalexin Other (see comments) 03/15/2021 Ciprofloxacin Other (see comments) 03/15/2021 Diltiazem Other (see comments) 03/15/2021 Diltiazem Hcl Er Other (see comments) 2 Doxycycline Other (see comments) 03/15/2021 Erythromycin 09/13/2008 Erythromycin Base Other (see comments) 03/15/20 21 Glimepiride Other (see comments) 03/15/2021 Glyburide Other (see comments) 03/15/2021 Ibuprofen Other (see comments) 03/15/2021 Indomethacin Other (see comments) 03/15/2021 Insulin Other (see comments) Medium 03/15/2021 Insulin Degludec 03/15/2021 Insulin Isophane Other (see comments) Isosorbide 03/15/2021 Empagliflozin Anaphylaxis High 03/18/2021 Levofloxacin Other (see comments) 03/15/2021 Moxifloxacin Anaphylaxis,Other (s ee comments) High 03/15/2021 Naproxen Other (see comments) 09/26/2021 Nitroglycerin Other (see comments) 09/26/2021 Drops BP Parathyroid Hormone (Recomb) Other (see comments) 03/15/2021 Penicillin G Other (see comments) 09/26/2021 Pioglitazone Other (see comments) 03/15/2021 Sulfa Antibiotics Other (see comments) 03/15/20 Sulfamethoxazole-Trimethopr im Other (see comments) 03/15/2021 Zafirlukast Other (see comments) 03/15/2021 Medications omega-3 (FISH OIL) 1000 MG capsule Take 2 capsules by mouth 1 (one) time each day Active B Complex Vitamins (VITAMIN B COMPLEX PO) Take 1 tablet by mouth 1 (one) time each day Active Multiple Vitamin (Multivitamin Adult) tablet Take 1 tablet by mouth 1 (one) time each day Active albuterol HFA (PROVENTIL HFA;VENTOLIN HFA) 108 (90 Base) MCG/ACT inhaler if needed Active amitriptyline (ELAVIL) 10 MG tablet Take 1 tablet by mouth at bed time Active bevacizumab (Avastin) 100 MG/4ML chemo injection Every 5 wks Active Biotin 2500 MCG capsule 1 (one) time each day Active cholecalciferol (VITAMIN D-3) 25 MCG (1000 UT) capsule Active clopidogrel (PLAVIX) 75 MG tablet Take 75 mg by mouth 1 (one) time each day Active diazePAM (VALIUM) 2 MG tablet Take 1 tablet by mouth 2 (two) times a day Active ezetimibe (ZETIA) 10 MG tablet Comments: Patient Notes: TAKE 1 TABLET BY MOUTH EVERY DAY Duration: 90 Active fluticasone (FLONASE) 50 MCG/ACT nasal spray as directed Active fluticasone-salm eterol (ADVAIR DISKUS) 250-50 MCG/DOSE diskus inhaler Active glyBURIDE (DIABETA) 5 MG tablet Take 2 tablets by mouth 2 (two) times a day Active insulin aspart (NovoLOG FLEXPEN) 100 UNIT/ML injection if needed Active insulin glargine (Basaglar KwikPen) 100 UNIT/ML injection Inject under the skin 1 (one) time each day Active Magnesium Oxide 400 MG capsule Take 1 capsule by mouth 2 (two) times a day Active metoclopramide (REGLAN) 5 MG tablet Take 1 tablet by mouth 1 (one) time each day Active metoprolol tartrate (LOPRESSOR) 100 MG tablet Take 100 mg by mouth 1 (one) time each day Active montelukast (SINGULAIR) 10 MG tablet Take 1 tablet by mouth at bed time Active nitrofurantoin (MACRODANTIN) 50 MG capsule Take 1 capsule by mouth 2 (two) times a day Active pantoprazole (PROTONIX) 20 MG EC tablet Take 20 mg by mouth 1 (one) time each day Active pravastatin (PRAVACHOL) 80 MG tablet Take 1 tablet by mouth 1 (one) time each day Active azelastine (ASTELIN) 0.1 % nasal spray Administer 1 spray into each nostril if needed Active EPINEPHrine (EPIPEN) 0.3 MG/0.3ML injection syringe epinephrine 0.3 mg/0.3 mL injection, auto-injector Active nitroglycerin (NITROSTAT) 0.[address] 0.6 mg under the tongue every 5 (five) minutes if needed Active metFORMIN XR (GLUCOPHAGE-XR) 500 MG 24 hr tablet Take 500 mg by mouth 2 (two) times a day 1 Active CALCIUM CITRATE-VITAMIN D PO Take 600 mg by mouth 1 (one) time each day Active isosorbide mononitrate (IMDUR) 30 MG 24 hr tablet Take 30 mg by mouth 1 (one) time each day 2 Active Xarelto 20 MG tablet Take 20 mg by mouth 1 (one) time each day 2 Active ferrous gluconate (FERGON) 324 (38 Fe) MG tablet Take 324 mg by mouth in the morning and 324 mg at noon and 324 mg in the evening. Take with meals. Active furosemide (LASIX) 40 MG tablet Take 40 mg by mouth in the morning and 40 mg in the evening. Active Umeclidinium [place] (Incruse Ellipta) 62.5 MCG/ACT aerosol powder Inhale 1 puff 1 (one) time each day Active Praluent 75 MG/ML solution auto-injector INJECT 75 MG UNDER THE SKIN ONCE EVERY 14 DAYS 4 Active KLOR-CON 20 MEQ CR tablet Take 20 mEq by mouth in the morning. 4 Active Active Problems Problem Noted Date Diagnosed Date History of aortic valve replacement 07/07/2024 Atrial fibrillation 11/30/2022 Ischemic congestive cardiomyopathy 09/12/2022 Obstructive sleep apnea syndrome 09/12/2022 Acquired hammer toe of right foot 06/02/2022 Polyneuropathy due to type 1 diabetes mellitus 0 06/02/2022 History of coronary artery bypass grafting 02/28 Overview (07/07/2024): Done [place] [facility] [place] with Ryan Black - indications: CAD, Angina Hypercoagulability state 02/28/2022 Congestive heart failure 09/18/2021 Overview (07/07/2024): Last Assessment & Plan: She does not have a lower extremity edema anymore. Her major presentation appears to be increased abdominal girth and weight gain. Adrenal adenoma <Unspecified side> 03/17/2021 Chronic obstructive pulmonary disease 03/15/2021 Empty sella syndrome 03/15/2021 Hypo-osmolality and or hyponatremia 03/15/2021 Transient cerebral ischemia 01/28/2021 Stented coronary artery 01/28/2021 Recurrent urinary tract infection 01/28/2021 Hypertensive disorder 01/28/2021 Type 2 diabetes mellitus 06/03/2018 Overview (03/15/2021): Last Assessment & Plan: Suggest her to discuss further with her endocrinology team about jardiance Coronary arteriosclerosis 12/08/2017 Overview (03/15/2021): Last Assessment & Plan: She has residual obstructive coronary artery disease distal LAD. She could not tolerate nitrate well due to headache. I discussed with her about the option of Ranexa if chest discomfort is bothersome. Currently, it seems that she is doing fine without it. She will let me know if recurrent chest discomfort bothers her significantly Dyslipidemia 02/27/2017 Overview (03/15/2021): Last Assessment & Plan: LDL is at target. Peripheral vascular disease 04/28/2016 Vitamin D deficiency 06/05/2014 Peptic ulcer 01/19/2014 Overview (03/15/2021): Comments: pos H. pylori (Dr Elizalde) Resolved Problems Problem Noted Date Diagnosed Date Resolved Date Nodular adrenal cortex 03/15/202103/17 Immunizations Immunization Administration Dates Next Due Influenza (IM) Preservative Free 020,02/20/2018,02/20/2017,02/12,02/27/2015,03/07/2011,03/19/2009 Influenza Split High Dose Pr eservative Free IM 02/21/2018 Influenza TIV (IM) 02/13/2016, 5,02/20/2014,02/22 Pfizer SARS-COV-2 08/17/2020 Pneumococcal Conjugate 13-Valent 02/27/2017 Pneumococcal Polysaccharide 10/05/2012 Pneumococcal, Unspecified 02/27/2015 Tdap 08/27/2012,01/06/2012 Zoster 03/22/2013 Family History Medical History Relation Comments Diabetes Father Heart disease Father Hypertension Father Heart disease Mother Hypertension Mother Relation Status Comments Father Mother Social History Tobacco Use Types Packs/Day Years Used Date Smoking Tobacco: Never Smokeless Tobacco: Never Alcohol Use Standard Drinks/Week Comments No 0 (1 standard drink = 0.6 oz pur e alcohol) Comments Unknown Sex and Gender Information Value Date Recorded Sex Assigned at Not on file Legal Sex Female 4:53 PM EST Gender Identity Not on file Sexual Orientation Not on file Last Filed Vital Signs Vital Sign Reading Time Taken Comments Blood Pressure 128/58 07/07/2024 11:40 AM EST Pulse 88 07/07/2024 11:40 AM EST Temperature - - Respiratory Rate - - Oxygen Saturation 95% 06/02/2023 11:33 AM EST Inhaled Oxygen Concentration - - Weight 73.9 kg (163 lb) 07/07/2024 11:40 AM EST Height 137.2 cm (4' 6 ) 06/02/2023 11:33 AM EST Body Mass Index 39.3 06/02/2023 11:33 AM EST Plan of Treatment Upcoming Encounters Date Type Department Care Team (Late st Contact Info) Description 07/10/2025 11:20 AM EST Office Visit [facility] [address] [facility] [address] [place] [address] El Evans MD [address] [facility] [address] [place] [address] Health Maintenance Due Date Last Done Comments Breast Cancer Screening 1950 Colorectal Cancer Screening: Annual FOBT 2001 Colorectal Cancer Screening: Colonoscopy 2001 Colorectal Cancer Screening: Sigmoidoscopy 2001 Pneumococcal Vaccine: 50+ Years (3 of 3 - PCV20 or PCV21) 10/05/2017 02/27/2017, 02/27/2015, 10/05/2012 Diabetes: Hemoglobin A1C 03/15/2021 Diabetes: Ophthalmology Exam 03/15/2021 Diabetes: Pedal Pulse Checked 03/15/2021 Diabetes: Sensory Foot Exam 03/15/2021 Diabetes: Visual Foot Exam 03/15/2021 Influenza Vaccine (Season Ended) 2025 04/02/2022, 03/01/2020, 03/12/2019, Additional history exists Pneumococcal Vaccine: Peds (0 to 5 Years) and At-Risk Patients (6 to 49 Years) Discontinued 02/27/2017, 02/27/2015, 10/05/2012 Hepatitis B Vaccine Aged Out No longe r eligible based on patient's age to complete this topic Insurance [facility] Medicaid [place] Medicare Care Teams Circular Saw Operator Relationship Specialty Start Date End Date Miriam Cole MD [address] [place] [id number] PCP - General Internal Medicine 03/18/21
--- OUTSIDE RECORDS SUMMARY | 2024-11-23 09:47 | XMS_ITS | Encounter Summary ---
Author Organization [facility] Address [address] [place] [address] Care Team Providers Care Room Service Food Service Attendant Name Role Phone Miriam Cole MD Primary Care Provider Encounter Details Date Type Department Care Team (Late Contact Info) Description 07/15/[address] [facility] Lab [address] [facility] [place] [phone] Tray Arias PA [address] [place] [address] Urinary tract infection, site not specified Social History Tobacco Use Types Packs/Day Years Used Date Smoking Tobacco: Never Smokeless Tobacco: Never Alcohol Use Standard Drinks/Week Comments Never 0 (1 standard drink = 0.6 oz pur e alcohol) Comments Unknown Sex and Gender Information Value Date Recorded Sex Assigned at Female 10/09/2024 2:21 PM EDT Legal Sex Female 8:37 AM EST Gender Identity Female 10/09/2024 2:21 PM EDT Sexual Orientation Straight 10/09/2024 2: 21 PM EDT documented as of this encounter Plan of Treatment Upcoming Encounters Date Type Department Care Team (Late Contact Info) Description 01/18/2025 4:00 PM EDT Office Visit Vascular Surgery - [place] [address] [place] [address] Arlette Meyer MD [address] [place] [address] 01/30/2025 3:30 PM EDT Office Visit Pulmonolgy - [place] [address] [facility] [address] [place] [address] Shanell Dominguez MD [address] [facility] [address] [place] [address] 06/21/2025 1:00 PM EST Office Visit Vascular Surgery - [place] [address] [facility] [address] [place] [address] Arlette Meyer MD [address] [facility] [address] [place] [address] documented as of this encounter Procedures Procedure Name Priority Date/Time Associated Diagnosis Comments CULTURE URINE Routine 07/15/2024 3:15 PM EST Urinary tract infection, site not specified documented in this encounter Results * Culture urine (07/15/2024 3:15 PM EST) Culture, Urine 50,000-99,000 CFU/mL Mixed urogenital cuong, no uropathogens present. Suggest repeat specimen if clinically indicated. 07/17/2024 12:22 PM EST [facility] Urine Urine specimen obtained by clean catch procedure / Unknown 07/15/2024 3:15 PM EST 07/15/2024 6:54 PM EST us [facility] MICROBIOLOGY - GENERAL ORD ERABLES Final Result [facility] [address] [place] [address], documented in this encounter Visit Diagnoses Diagnosis Urinary tract infection, site not specified documented in this encounter Additional Health Concerns Infection Onset Date Last Indicated Resolved Time Respiratory Rule-Out 10/16/2024 10/16/2024 025 9:47 AM EDT COVID-19 Rule-Out 10/16/2024 10/16/2024 10/16/2024 9:47 AM EDT documented as of this encounter Care Teams Room Service Food Service Attendant Relationship Specialty Start Date End Date Miriam Cole MD [address] [place] [address] PCP - General Internal Medicine 04/26/24 documented as of this encounter
--- OUTSIDE RECORDS SUMMARY | 2024-11-23 09:47 | XMS_ITS | Data Portability ---
Author Organization [place] - [facility], Allergy Address [address] [address] Care Team Providers Care Poison Information Specialist Name Role Phone ARISTIDES MCDONALD Primary Care Provider [phone] Assessment Encounter Date Assessment Date Assessment LastModified by Organization Details LastModified Time 12/15/2023 12/15/2023 73-year-old female presents for reevaluation. Otologic exam reveals that the crust on the left side has resolved without further debridement effort. Normal skin beneath and normal TM bilaterally. There is erythema and edema within the nasal cavity particularly on the left side. Symptoms are consistent with sinusitis. Recommended a short course of antibiotic. She has several antibiotic allergies but can take Ceftin which was sent to pharmacy. Call for reevaluation if this does not resolve. [email or web address] Not available 12/15/2023 14:40:01 01/27/2024 01/27/2024 73 year old female with PMH of allergic rhinitis on immunotherapy, asthma, and chronic sinusitis with nasal polyps s/p sinus surgery presents for follow up of sinusitis. CT head without contrast 01/17/24 was personally reviewed and demonstrated patent sinuses bilaterally. On exam, bilateral TMs are intact with well aerated middle ear spaces. No effusion noted. Nasal endoscopy demonstrated dried blood in the right nasal cavity from recent episode of epistaxis and crusting of the maxillary sinus cavities bilaterally, scant purulence noted after crusting was removed on the left. No polyps. Culture of the left maxillary sinus cavity was obtained and medical therapy will be initiated pending culture results. Recommend daily sinus irrigations. We discussed that her symptoms maybe related to her seasonal allergies. She has an upcoming appointment with Allergy and Immunology for repeat allergy testing. She will continue to follow up with her correctional guard for management of allergies. Also recommended to follow up with her primary care provider for headache management and she will follow up with our office as needed. [email or web address] Not available 01/27/2024 16:37:12 03/02/2024 03/02/2024 73 year old female with PMH of allergic rhinitis on immunotherapy, asthma, and chronic sinusitis with nasal polyps s/p sinus surgery presents for follow up of sinusitis. Currently her symptoms have resolved following administration of IV antibiotics while hospitalized for pneumonia. I have recommended that she continue her regular sinus rinse. She does not need to use the gentamicin rinse. She will follow up on as needed. [email or web address] Not available 03/02/2024 11:06:36 06/29/2024 06/29/2024 74yo female presents for evaluation of left otalgia. Left cerumen impaction and dry otorrhagia removed from medical external auditory canal. No otorrhea was appreciated. Exam demonstrates TMs are intact and well-aerated. Today we spent some time talking about the fact that cerumen is a natural antibiotic, antifungal, elementary school teacher's aide, and moisturizer of the delicate external auditory canal skin. The use of Q-tips strips away this natural protection and makes the ear canal skin more likely to become itchy, irritated or become infected. There is also the risk of trauma to the tympanic membranes as well. We discussed proper aural hygiene techniques to maintain the health of the external ears. Recommend mineral oil as needed to soothe and hydrate the ear canals. Patient will follow up as needed. [email or web address] Not available 06/29/2024 13:51:55 Plan of Treatment Reminders Order Date Submit Date Provider Last Modified By Organization Details Last Modified Time Details Appointments [facility] Fitting Follow Up (60) 2024 11:00A M MARGUERITE STYLES Not available Not available Not available Lab culture, aerobic + anaerobic 2023 024 AHSAN [facility] (Centralized Electronic Ordering - All Locations), Patient Can Go To The Location Of Their Choice, [id number] 02/01/2024 09:09:01 fungus, culture, unspecifi ed specimen 2023 024 AHSAN [facility] (Centralized Electronic Ordering - All Locations), Patient Can Go To The Location Of Their Choice, [id number] 02/01/2024 09:09:02 Referral None recorded. Procedures None recorded. Surgeries None recorded. Imaging None recorded. Medication Orders cefdinir 300 mg capsule 2023 024 [email or web address] [id number], [address] [place], [address], 06/29/2024 13:09:09 Patient TargetsNo targets recorded. Patient InstructionsNo instructions recorded. Reason for Referral None Reported. 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 Heavy growt h Based on resis tance to oxaci llin this isola te would be resis tant to all curre ntly avail able beta- lacta m antim icrob ial agent s, with the excep tion of the newer cepha lospo rins with anti- MRSA activ ity, such as Cefta rolin e Not Available [facility] ([facility]) [address] [facility], [place], [address], 02/01/2024 09:09:01 01/27/20 24 01/30/2024 ANAER OBIC AND AEROB IC CULTU RE result 2 COMMEN T abnormal Pseud omona s aerug inosa Heavy growt h Not Available [facility] ([facility]) [address] [facility], [place], [address], 02/01/2024 09:09:01 01/27/20 24 01/30/2024 ANAER OBIC AND AEROB IC CULTU RE antimicrobia l susceptibili ty Commen t S = Susce ptibl e; I = Inter media te; R = Resis tant P = Posit lia; N = Negat lia MICS are expre ssed in micro grams per mL Antib iotic RSLT# 1 RSLT# 2 RSLT# 3 RSLT# 4 Amika dottie S Cefep irineo S Cefta zidim e S Cipro floxa dottie S S Clind amyci n S Eryth romyc in R Genta micin S S Imipe nem S Levof loxac in S S Linez olid S Merop enem S Oxaci llin R Penic illin R Piper acill in S Rifam pin S Tetra cycli ne R Ticar cilli n S Tobra mycin S Trime thopr im/Chandra lfa S Vanco mycin S Not Available [facility] ([facility]) [address] [place], [address], 02/01/2024 09:09:01 01/27/20 24 01/31/2024 ANAER OBIC AND AEROB IC CULTU RE anaerobic culture Final report Not Available [facility] ([facility]) [address] [place], [address], 02/01/2024 09:09:01 01/27/20 24 01/31/2024 ANAER OBIC AND AEROB IC CULTU RE result 1 COMMEN T No anaer obic growt h in 72 hours . Not Available [facility] ([facility]) [address] [place], [address], 02/01/2024 09:09:01 01/27/20 24 02/01/2024 FUNGU S (MYCO LOGY) CULTU RE fungus (mycology) culture Final report Not Available [facility] ([facility]) [address] [place], [address], 02/01/2024 09:09:02 01/27/20 24 02/01/2024 FUNGU S (MYCO LOGY) CULTU RE result 1 Commen t Cultu re overg rown with bacte naseem. Not Available [facility] ([facility]) [address] [facility], [place], [address], 02/01/2024 09:09:02 01/13/20 24 07/15/2023 imagi ng/di agnos tic resul t No observ ation record ed. [email or web address] Not Available 03:05:07 01/13/20 24 07/15/2023 imagi ng/di agnos tic resul t No observ ation record ed. [email or web address] Not Available 03:05:10 01/13/20 24 08/19/2022 imagi ng/di agnos tic resul t No observ ation record ed. [email or web address] Not Available 03:05:36 01/13/20 24 07/15/2023 audio gram No observ ation record ed. [email or web address] Not Available 03:06:10 01/13/20 24 07/24/2023 audio gram No observ ation record ed. [email or web address] Not Available 03:06:19 01/13/20 24 08/07/2023 audio gram No observ ation record ed. [email or web address] Not Available 03:06:20 01/13/20 24 08/21/2023 audio gram No observ ation record ed. [email or web address] Not Available 03:06:27 01/13/20 24 09/14/2023 audio gram No observ ation record ed. [email or web address] Not Available 03:06:36 01/27/20 24 01/17/2024 CT, head + brain , w/o contr ast No observ ation record ed. [email or web address] Not Available 08/2023 14:07:58 Result Notes None recorded. Problems Name Problem SNOMED Code Status Onset Date Resolution Date Notes Provider Name and Address Organization Details Recorded Time Chronic frontal sinusitis 78780598 Active 2015 Chronic frontal sinusitis ; Note: Date Diagnosed : 06/06/2015 9:41 AM (J32.1) [mapped from ICD9 code: 477.9] Not Available [facility] 4 02:45:19 Dizziness and giddiness 022115892 Active 2014 Dizziness ; Note: Date Diagnosed : 09/27/2014 12:19 PM (780.4) Not Available [facility] 4 02:45:17 Bleeding from nose 987092374 Active 2020 Epistaxis ; Note: Date Diagnosed : 1 11:42 AM (R04.0) Not Available [facility] 4 02:45:17 Tinnitus of left ear 95638866539 06 Active 2015 Tinnitus, left ear; Note: Date Diagnosed : 06/06/2015 9:41 AM (H93.12) [mapped from ICD9 code: 388.31] Note: Date Diagnosed : 06/06/2015 9:41 AM (H93.12) [mapped from ICD9 code: 388.31] Not Available [facility] 4 01:06:50 Pain of left temporoma ndibular joint 00236413542 442110 Active 2018 Arthralgi a of left temporoma ndibular joint; Note: Date Diagnosed : 9 2:16 PM (M26.622) Not Available [facility] 4 02:45:16 Complicat ion due to diabetes mellitus 05399059 Active 2015 Other specified diabetes mellitus with unspecifi ed complicat ions; Note: Date Diagnosed : 06/06/2015 9:41 AM (E13.8) [mapped from ICD9 code: 477.9] Not Available [facility] 4 02:45:20 Chronic rhinitis 55373516 Active 2015 Rhinitis, chronic; Note: Date Diagnosed : 11/20/2014 10:32 AM (472.0) ; Start Date : 5 Chronic rhinitis; Note: Date Diagnosed : 06/06/2015 9:41 AM (J31.0) [mapped from ICD9 code: 472.0] Not Available [facility] 4 02:45:14 Referred otalgia 69022624 Active 2014 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; Note: Date Diagnosed : 11/20/2014 10:32 AM (388.72) Not Available [facility] 4 02:45:14 Impacted cerumen of bilateral ears 56006871891 12167 Active 2017 Impacted cerumen, bilateral ; Note: Date Diagnosed : 09/23/2017 3:37 PM (H61.23) Not Available [facility] 4 02:45:12 Asthma 418813207 Active 2014 Asthma; Note: Date Diagnosed : 08/01/2014 10:46 AM (493.90) Not Available [facility] 4 02:45:20 Allergic rhinitis 72949124 Active 2015 Allergic Rhinitis; [facility] Treatment : establish ed problem (to examiner) : stable or improved Note: Date Diagnosed : 08/01/2014 10:26 AM (477.9) ; Start Date : 5 Perenni al allergic rhinitis; Note: Date Diagnosed : 01/22/2016 4:21 PM (J30.89) Allergi c rhinitis, unspecifi ed; Note: Date Diagnosed : 06/06/2015 9:41 AM (J30.9) [mapped from ICD9 code: 477.9] ; Start Date : 6 Not Available [facility] 4 02:45:18 Subjectiv e tinnitus 31578562 Active 2014 Tinnitus; Note: Date Diagnosed : 09/27/2014 12:19 PM (388.31) Not Available [facility] 4 02:45:18 Mild intermitt ent asthma 987688287 Active 2015 Mild intermitt ent asthma, uncomplic ated; Note: Date Diagnosed : 06/06/2015 9:41 AM (J45.20) [mapped from ICD9 code: 477.9] Not Available [facility] 4 02:45:13 Acute maxillary sinusitis 74128981 Active 2018 Maxillary sinusitis , acute; Note: Date Diagnosed : 08/01/2014 10:46 AM (461.0) ; Start Date : 5 Acute maxillary sinusitis , unspecifi ed; Note: Date Diagnosed : 02/15/2019 2:33 PM (J01.00) Not Available [facility] 4 02:45:20 Sensorine ural hearing loss of bilateral ears 304327540 Active 2015 Sensorine ural HL, bilateral ; Note: Date Diagnosed : 09/27/2014 12:19 PM (389.18) ; Start Date : 5 Sensori neural hearing loss, bilateral ; Note: Date Diagnosed : 06/06/2015 9:41 AM (H90.3) [mapped from ICD9 code: 389.18] Not Available [facility] 4 02:45:15 Posterior rhinorrhe a 48319404 Active 2016 Postnasal drip; Note: Date Diagnosed : 01/08/2017 10:26 AM (R09.82) Not Available [facility] 4 02:45:13 Otalgia of left ear 5616362047 Active 2018 Otalgia, left ear; Note: Date Diagnosed : 9 2:16 PM (H92.02) Not Available [facility] 4 02:45:17 Headache 45814352 Active 2015 Headache, unspecifi ed; Note: Changed from R51 to R51.9 (12/29/2022 4:38 PM) , Date Diagnosed : 07/11/2015 12:39 PM (R51) Not Available [facility] 4 02:45:15 Acute sinusitis 26759474 Active 2023 WALLY MORALES PA-C [address] [place] [address], [place], [address] , [facility] 4 14:40:07 Bleeding from ear 48638153 Active 2023 Otorrhagi a, unspecifi ed ear; Note: Changed from H92.2 to H92.20 ( 4 9:37 AM) , Date Diagnosed : 08/18/2023 3:56 PM (H92.2) Not Available [facility] 4 02:45:15 Bilateral tinnitus 71708106241 02 Active 2015 Tinnitus, bilateral ; Note: Changed from H93.12 to H93.13 ( 4 3:21 PM) , Date Diagnosed : 06/06/2015 9:41 AM (H93.12) [mapped from ICD9 code: 388.31] Not Available [facility] 4 02:45:18 Chronic sinusitis 96149732 Active 2023 ANJELICA MENDEZ PA-C [address], [facility] [place], [address] , [place] - [facility] 4 11:52:04 Otorrhea 01690458 Active 2023 ANJELICA MENDEZ PA-C [address], [place], [address] , [place] - [facility] 4 11:52:38 Otorrhagi a of left ear 19978131746 48327 Active 2024 CORKY RYAN PA-C [address], [place], [address] , [place] - [facility] 5 13:49:01 Impacted cerumen in left ear 80729576976 84643 Active 2024 CORKY RYAN PA-C [address], [facility] [place] [place], [address] , [place] - [facility] 5 13:49:06 Problem Notes None recorded. Procedures Surgical History Date Name Laterality Status Provider Name and Address Organization Details Recorded Time 5 Cerumen removal without microscope left completed CORKY RYAN PA-C [address], [place], [address], [place] - [facility] 06/29/2024 13:47:27 4 Nasal Endoscopy completed ANJELICA MENDEZ PA-C [address], [place], [address], [facility] - [facility] 01/27/2024 12:36:35 Imaging Results None recorded. Procedure Notes None recorded. Medical Equipment None Reported. Allergies Allergen ID Allergen Name Allergen Category Reaction Reaction Severity Criticality Documentation Date Start Date Code Code System Note Provider Name and Address Organization Details Recorded Time 37109 diltiazem hydrochlo ride medicatio n other Not available Not available 10/06/2023 76016 1 RxNorm React ion: unkno wn, unspe cifie d;; Not Available [facility] 4 01:00:45 80969 ibuprofen , sodium salt medicatio n other Not available Not available 10/06/2023 51017 44 RxNorm React ion: unkno wn, unspe cifie d;; Not Available [facility] 4 01:00:[address] Not available other Not available Not available 10/06/2023 35279 0 RxNorm React ion: unkno wn, unspe cifie d;; Not Available [facility] 4 01:00:46 20819 cefuroxim e axetil medicatio n other Not available Not available 10/06/2023 19411 RxNorm React ion: unkno wn, unspe cifie d;; ANJLEICA MENDEZ PA-C [address] [address], [place], [address], [facility] 4 13:11:02 71440 moxifloxa dottie medicatio n anaphylax is Not available Not available 10/06/2023 21492 2 RxNorm React ion: unkno wn, unspe cifie d;; Not Available [facility] 4 01:00:49 29778 amoxicill in medicatio n other Not available Not available 10/06/2023 723 RxNorm React ion: unkno wn, unspe cifie d;; ANJELICA MENDEZ PA-C [address] [address], [place], [address], [facility] 4 13:10:24 07654 indometha dottie medicatio n other Not available Not available 10/06/2023 5781 RxNorm React ion: unkno wn, unspe cifie d;; Not Available [facility] 4 01:00:52 52070 ciproflox acin hydrochlo ride medicatio n anaphylax is Not available Not available 10/06/2023 89720 RxNorm React ion: unkno wn, unspe cifie d;; Not Available [facility] 4 01:00:55 93850 Bactrim medicatio n wheezing Not available Not available 10/06/2023 94653 9 RxNorm React ion: unkno wn, unspe cifie d;; Not Available [facility] 4 01:00:57 14874 doxycycli ne hyclate medicatio n other Not available Not available 10/06/2023 11607 RxNorm React ion: unkno wn, unspe cifie d;; ANJELICA MENDEZ PA-C [address] [place] [address], [place], [address], [facility] 4 13:13:31 18095 levofloxa dottie medicatio n anaphylax is Not available Not available 10/06/2023 94820 RxNorm React ion: unkno wn, unspe cifie d;; Not Available [facility] 4 01:01:03 36131 cephalexi n monohydra te medicatio n other Not available Not available 10/06/2023 86644 8 RxNorm React ion: unkno wn, unspe cifie d;; ANJELICA MENDEZ PA-C [address] [place] [address], [place], [address], [facility] 4 13:13:38 73428 alendrona te sodium medicatio n other Not available Not available 10/06/202310312 2 RxNorm React ion: unkno wn, unspe cifie d;; Not Available [facility] 4 01:01:10 14862 Substance with sulfonami de structure and antibacte rial mechanism of action (substanc e) medicatio n anaphylax is Not available Not available 10/06/2023 63860 8003 SNOMED React ion: unkno wn, unspe cifie d;; Not Available [facility] 4 01:01:13 11967 erythromy dottie ethylsucc inate medicatio n wheezing Not available Not available 10/06/2023 4056 RxNorm React ion: unkno wn, unspe cifie d;; Not Available [facility] 01:01:17 Medications Name Sig Start Date Stop Date Status Note LastModified by Organization Details LastModified Time furosemid e 40 mg tablet TAKE 1 TABLET TWICE A DAY IN THE MORNING AND THE EARLY EVENING active Not Available Not Available No t Available neomycin- polymyxin -hydrocor t 3.5 mg/mL-10, 000 unit/mL-1 % ear solution INSTILL TWO DROPS TO THE AFFECTED EAR S) THREE TIMES A DAY FOR 10 DAYS active Not Available Not Available No t Available prednison e 10 mg tablet TAKE 4 TABLETS BY MOUTH DAILY FOR 2 DAYS, THEN 3 TABLETS FOR 2 DAYS, THEN 2 TABLETS FOR 2 DAYS, THEN 1 TABLET FOR 2 DAYS, THEN STOP 06/29 completed Not Available Not Available Not Available nitrofura ntoin macrocrys shreyas 50 mg capsule TAKE 1 CAPSULE TWICE DAILY 06/29 completed Not Available Not Available Not Available cefuroxim e axetil 250 mg tablet TAKE ONE TABLET BY MOUTH TWICE A DAY X 10 DAYS 06/29 completed Not Available Not Available Not Available ipratropi um 0.5 mg-albute rol 3 mg (2.5 mg base)/3 mL nebulizat ion soln INHALE CONTENTS OF 1 VIAL VIA NEBULIZE R FOUR TIMES A DAY active Not Available Not Available No t Available albuterol sulfate 2.5 mg/3 mL (0.083 %) solution for nebulizat ion ONE VIAL EVERY 4 HOURS FOR WHEEZING FOR UP TO 30 DAYS active Not Available Not Available No t Available Glucophag e 500 mg tablet 2014 active Medicati on ID: [id number] Br and Name: Oneil bradford Send Method: E-Prescr ibed Sub s Allowed: subs OK Medic ationGen ericName : Glucopha ge Not Available Not Available Not Available fosfomyci n trometham ine 3 gram oral packet DISSOLVE ONE PACKET IN 4-8 OUNCES OF COLD WATER AND DRINK BY MOUTH EVERY 72 HOURS 06/29 completed Not Available Not Available Not Available glyburide 5 mg tablet active Not Available Not Available Not Available pravastat in 40 mg tablet 2014 active Medicati on ID: [id number] Du ration Value: 90 Brand Name: pravasta tin Send Method: E-Prescr ibed Sub s Allowed: subs OK Medic ationGen ericName : pravasta tin Not Available Not Available Not Available ranitidin e 300 mg tablet 2014 active Medicati on ID: [id number] Du ration Value: 90 Brand Name: ranitidi ne HCl Send Method: E-Prescr ibed Sub s Allowed: subs OK Medic ationGen ericName : ranitidi ne HCl Not Available Not Available Not Available clarithro mycin 500 mg tablet 1 tablet by mouth 06/29 completed Medicati on ID: [id number] D uration Value: 20 Prescri bed By Name: Thanh Fong nd Name: miltonithr omycin S end Method: E-Prescr ibed Sub s Allowed: subs OK Medic ationGen ericName : clarithr omycin Not Available Not Available Not Available albuterol sulfate 1.25 mg/3 mL solution for nebulizat ion INHALE 1 VIAL VIA NEBULIZE R EVERY 4 HOURS NEEDED FOR SHORTNES S OF BREATH FOR UP TO 5 DAYS 06/29 completed Not Available Not Available Not Available FreeStyle Lancets 28 gauge USE DIRECTED ; CHECK GLUCOSE UP TO FOUR TIMES A DAY active Not Available Not Available No t Available prednison e 20 mg tablet TAKE TWO TABLETS BY MOUTH EVERY DAY FOR 5 DAYS 06/29 completed Not Available Not Available Not Available isosorbid e mononitra te ER 30 mg tablet,ex tended release 24 hr TAKE 4 TABLETS DAILY active Not Available Not Available No t Available metoprolo l succinate ER 100 mg tablet,ex tended release 24 hr TAKE ONE TABLET BY MOUTH EVERY DAY active Not Available Not Available No t Available Lantus U-100 Insulin 100 unit/mL subcutane ous solution 2014 active Medicati on ID: [id number] Du ration Value: 90 Brand Name: Lantus S end Method: E-Prescr ibed Sub s Allowed: subs OK Medic ationGen ericName : Lantus Not Available Not Available Not Available amlodipin e 2.5 mg tablet TAKE ONE TABLET BY MOUTH EVERY DAY 06/29 completed Not Available Not Available Not Available clopidogr el 75 mg tablet TAKE 1 TABLET DAILY active Not Available Not Available No t Available ciproflox acin 500 mg tablet FOR IN-OFFIC E TESTING USE. DO NOT TAKE AT HOME. 06/29 completed Not Available Not Available Not Available sulfameth oxazole 800 mg-trimet hoprim 160 mg tablet FOR IN-OFFIC E TESTING USE. DO NOT TAKE AT HOME. 06/29 completed Not Available Not Available Not Available aspirin 81 mg tablet,de layed release 2014 active Medicati on ID: [id number] Br and Name: aspirin Send Method: E-Prescr ibed Sub s Allowed: subs OK Medic ationGen ericName : aspirin Not Available Not Available Not Available tramadol 50 mg tablet TAKE TWO TABLETS BY MOUTH EVERY 12 HOURS NEEDED FOR PAIN active Not Available Not Available No t Available spironola ctone 25 mg tablet TAKE ONE TABLET BY MOUTH EVERY DAY active Not Available Not Available No t Available pantopraz ole 20 mg tablet,de layed release active Not Available Not Available Not Available oxycodone -acetamin ophen 5 mg-325 mg tablet 06/06 completed Medicati on ID: [id number] Du ration Value: 15 Brand Name: oxycodon e-acetam inophen Send Method: E-Prescr ibed Sub s Allowed: subs OK Medic ationGen ericName : oxycodon e-acetam inophen Not Available Not Available Not Available isosorbid e mononitra te ER 60 mg tablet,ex tended release 24 hr TAKE ONE TABLET BY MOUTH EVERY MORNING active Not Available Not Available No t Available ofloxacin 0.3 % ear drops Apply 4 drop into left ear twice a day 2023 active Medicati on ID: [id number] D uration Value: 14 Brand Name: ofloxaci n Send Method: E-Prescr ibed Sub s Allowed: subs OK Speci al Instruct ion: x 14 days Med icationG enericNa me: ofloxaci n Not Available Not Available Not Available pravastat in 80 mg tablet TAKE 1 TABLET DAILY active Not Available Not Available No t Available magnesium oxide 400 mg (241.3 mg magnesium ) tablet TAKE ONE TABLET BY MOUTH TWICE A DAY active Not Available Not Available No t Available metoclopr amide 5 mg tablet TAKE 1 TABLET TWICE A DAY active Not Available Not Available No t Available amitripty line 10 mg tablet TAKE 1 TABLET AT BEDTIME active Not Available Not Available No t Available Multiple Vitamins tablet 2014 active Medicati on ID: [id number] Br and Name: Multiple Vitamins Send Method: E-Prescr ibed Sub s Allowed: subs OK Medic ationGen ericName : Multiple Vitamins Not Available Not Available Not Available diazepam 2 mg tablet TAKE 1 TABLET TWICE A DAY active Not Available Not Available No t Available phenazopy ridine 100 mg tablet TAKE 1 TABLET BY MOUTH 3 TIMES A DAY NEEDED FOR DYSURIA active Not Available Not Available No t Available baclofen 10 mg tablet TAKE ONE TABLET BY MOUTH THREE TIMES A DAY 06/29 completed Not Available Not Available Not Available doxycycli ne monohydra te 100 mg capsule FOR IN-OFFIC E TESTING USE. DO NOT TAKE HOME. 06/29 completed Not Available Not Available Not Available pantopraz ole 40 mg tablet,de layed release TAKE 1 TABLET DAILY active Not Available Not Available No t Available metformin 1,000 mg tablet TAKE 1 TABLET TWICE A DAY active Not Available Not Available No t Available nitrofura ntoin macrocrys shreyas 100 mg capsule TAKE ONE CAPSULE BY MOUTH TWICE A DAY 06/29 completed Not Available Not Available Not Available dexametha sone 4 mg tablet TAKE ONE TABLET BY MOUTH TWICE A DAY active Not Available Not Available No t Available clotrimaz ole-betam ethasone 1 %-0.05 % topical cream APPLY TWO TIMES A DAY active Not Available Not Available No t Available nitroglyc day 0.4 mg sublingua l tablet 2016 active Medicati on ID: [id number] D uration Value: 25 Brand Name: nitrogly cerin Se nd Method: E-Prescr ibed Sub s Allowed: subs OK Speci al Instruct ion: PLACE 1 TABLET UNDER THE TONGUE AT FIRST SIGN OF ATTACK. MAY REPEAT EV DEDE 5 MINUTES UNTIL RELIEF. IF PAIN PERSISTS AFTER 3TABS IN 15MINS PRO Medi cationGe nericNam e: nitrogly cerin Not Available Not Available Not Available gabapenti n 300 mg capsule TAKE ONE CAPSULE BY MOUTH THREE TIMES A DAY active Not Available Not Available No t Available Claritin- D 12 Hour 5 mg-120 mg tablet,ex tended release 2014 active Medicati on ID: [id number] Br and Name: Claritin -D 12 Hour Sen d Method: E-Prescr ibed Sub s Allowed: subs OK Medic ationGen ericName : Claritin -D 12 Hour Not Available Not Available Not Available omeprazol e 20 mg capsule,d elayed release 2014 active Medicati on ID: [id number] Du ration Value: 90 Brand Name: omeprazo le Send Method: E-Prescr ibed Sub s Allowed: subs OK Medic ationGen ericName : omeprazo le Not Available Not Available Not Available monteluka st 10 mg tablet TAKE ONE TABLET BY MOUTH DAILY AT BEDTIME active Not Available Not Available No t Available mupirocin 2 % topical ointment APPLY TO AFFECTED AREA S) OF NOSE DAILY NEEDED active Not Available Not Available No t Available azelastin e 137 mcg (0.1 %) nasal spray 2 spray into both nostrils 2017 active Medicati on ID: [id number] P rescribe d By Name: BENNY Kerr nd Name: gavinstelio strange Send Method: E-Prescr ibed Sub s Allowed: subs OK Medic ationGen ericName : azelasti ne Not Available Not Available Not Available epinephri ne 0.3 mg/0.3 mL injection , auto-inje ctor INJECT CONTENTS OF 1 PEN INTO THE MUSCLE ONCE NEEDED FOR ANAPHYLA XIS. CALL 911 AFTER active Not Available Not Available No t Available cefuroxim e axetil 500 mg tablet TAKE 1 TABLET BY MOUTH TWICE A DAY FOR 10 DAYS 06/29 completed Not Available Not Available Not Available estradiol 0.01% (0.1 mg/gram) vaginal cream INSERT ONE GRAM VAGINALL Y TWICE WEEKLY active Not Available Not Available No t Available methylpre dnisolone 4 mg tablets in a dose pack FOLLOW PACKAGE DIRECTIO NS 06/29 completed Not Available Not Available Not Available albuterol sulfate HFA 90 mcg/actua tion aerosol inhaler INHALE TWO PUFFS BY MOUTH EVERY 6 HOURS NEEDED FOR WHEEZING OR FOR SHORTNES S OF BREATH active Not Available Not Available No t Available ondansetr on 4 mg disintegr ating tablet DISSOLVE ONE TABLET BY MOUTH EVERY 8 HOURS NEEDED FOR NAUSEA OR VOMITING . ALLOW TABLET TO DISSOLVE ON TONGUE. active Not Available Not Available No t Available cefdinir 300 mg capsule TAKE ONE CAPSULE BY MOUTH EVERY 12 HOURS FOR 7 DAYS 06/29 completed Not Available Not Available Not Available fluticaso ne propionat e 50 mcg/actua tion nasal spray,linda pension 2014 active Medicati on ID: [id number] Du ration Value: 90 Brand Name: fluticas one Send Method: E-Prescr ibed Sub s Allowed: subs OK Speci al Instruct ion: SPRAY ONE SPRAY IN EACH NOSTRIL ONCE DAILY Me dication GenericN myriam: fluticas one Not Available Not Available Not Available doxycycli ne hyclate 100 mg tablet TAKE ONE TABLET BY MOUTH TWICE A DAY. LIMIT SUN EXPOSURE WHILE TAKING THIS 06/29 completed Not Available Not Available Not Available ipratropi um bromide 21 mcg (0.03 %) nasal spray 2 spray into both nostrils 2016 active Medicati on ID: [id number] P rescribe d By Name: RADHA Lopes nd Name: Atrovent Send Method: E-Prescr ibed Sub s Allowed: subs OK Medic ationGen ericName : Atrovent Not Available Not Available Not Available amoxicill in 875 mg-potass ium clavulana te 125 mg tablet TAKE ONE TABLET BY MOUTH EVERY 12 HOURS 06/29 completed Not Available Not Available Not Available oxycodone 5 mg tablet TAKE ONE TABLET BY MOUTH TWICE A DAY NEEDED FOR MODERATE PAIN active Not Available Not Available No t Available hydroxyzi ne pamoate 25 mg capsule TAKE ONE CAPSULE BY MOUTH THREE TIMES A DAY NEEDED FOR ITCHING active Not Available Not Available No t Available insulin lispro (U-100) 100 unit/mL subcutane ous pen INJECT 2-10 UNITS UNDER THE SKIN THREE TIMES A DAY BEFORE MEALS; FOR SUGARS 151-200= 2 UNITS; 201-250= 4 UNITS; 251-300= 6 UNITS; 301-350= 8 active Not Available Not Available No t Available ezetimibe 10 mg tablet TAKE 1 TABLET DAILY active Not Available Not Available No t Available Vitamin D3 25 mcg (1,000 unit) capsule 2014 active Medicati on ID: [id number] Br and Name: Vitamin D3 Send Method: E-Prescr ibed Sub s Allowed: subs OK Medic ationGen ericName : Vitamin D3 Not Available Not Available Not Available Novolog FlexPen U-100 Insulin aspart 100 unit/mL (3 mL) subcutane ous active Not Available Not Available Not Available Restasis 0.05 % eye drops in a dropperet te active Not Available Not Available Not Available Klor-Con M20 mEq tablet,ex tended release TAKE 1 TABLET DAILY active Not Available Not Available No t Available metoprolo l tartrate 25 mg tablet 06/29 completed Medicati on ID: [id number] D uration Value: 90 Brand Name: metoprol ol tartrate Send Method: E-Prescr ibed Sub s Allowed: subs OK Speci al Instruct ion: TAKE ONE TABLET BY MOUTH TWICE A DAY Medi cationGe nericNam e: metoprol ol tartrate Not Available Not Available Not Available Spiriva with HandiHale r 18 mcg and inhalatio n capsules 2014 active Medicati on ID: [id number] Du ration Value: 90 Brand Name: Spiriva with HandiHal er Send Method: E-Prescr ibed Sub s Allowed: subs OK Medic ationGen ericName : Spiriva with HandiHal er Not Available Not Available Not Available nitrofura ntoin monohydra te/macroc rystals 100 mg capsule 06/29 completed Not Available Not Available Not Available FreeStyle Lite Meter kit USE DIRECTED FOR DIABETES CARE FOUR TIMES A DAY active Not Available Not Available No t Available FreeStyle Lite Strips USE THREE TIMES A DAY DIRECTED FOR DIABETES CARE active Not Available Not Available No t Available GaviLyte- G 236 gram-22.7 4 gram-6.74 gram-5.86 gram oral solution active Not Available Not Available Not Available Incruse Ellipta 62.5 mcg/actua tion powder for inhalatio n USE 1 INHALATI ON ORALLY DAILY active Not Available Not Available No t Available Praluent Pen 75 mg/mL subcutane ous pen injector INJECT CONTENTS OF 1 PEN UNDER THE SKIN ONCE EVERY 14 DAYS active Not Available Not Available No t Available Basaglar KwikPen U-100 Insulin 100 unit/mL (3 mL) subcutane ous INJECT 26 UNITS UNDER THE SKIN ONCE DAILY AT BEDTIME; ROTATE INJECTIO N SITES active Not Available Not Available No t Available Xarelto 2.5 mg tablet TAKE 1 TABLET TWICE A DAY (DOSE DECREASE D/CHANGE D IN HOSOPITA L IN 08/2022) active Not Available Not Available No t Available Wixela Inhub 250 mcg-50 mcg/dose powder for inhalatio n USE 1 INHALATI ON ORALLY TWICE DAILY active Not Available Not Available No t Available BD Shivani 2nd Gen Pen Needle 32 gauge x USE FOUR TIMES A DAY DIRECTED active Not Available Not Available No t Available Baqsimi 3 mg/actuat ion nasal spray ADMINIST ER 1 SPRAY IN THE RIGHT NOSTRIL ONCE. ONLY USE IF PATIENT IS UNCONSCI OUS, TO BE GIVEN BY A FAMILY MEMBER. IF USED PLEASE CALL [phone] AF 06/29 completed Not Available Not Available Not Available Vitals Date Recorded Body height Body mass index (BMI) Body weight Provider Name and Address Organization Details Last Updated DateTime 06/29/2024 134.62 cm 41.5 kg/m2 13424.33 g Ashley Hurtado [place] [facility] 06/29/2024 13:15:22 Date Recorded Body height Body mass index (BMI) Body weight Provider Name and Address Organization Details Last Updated DateTime 12/15/2023 144.78 cm 36.6 kg/m2 26250.11 g Anil Rivera [place] - [facility] 12/15/2023 13:14:58 Date Recorded Body height Body mass index (BMI) Body weight Provider Name and Address Organization Details Last Updated DateTime 01/27/2024 144.78 cm 36.6 kg/m2 15193.11 g Josephine Hazel [place] - [facility] 01/27/2024 10:27:01 Date Recorded Body height Body mass index (BMI) Body weight Provider Name and Address Organization Details Last Updated DateTime 03/02/2024 144.78 cm 36.6 kg/m2 49928.11 g Kemi Jasso [place] - [facility] 03/02/2024 10:33:27 Social History None recorded. Functional Status None recorded. Mental Status None recorded. Family History Nothing Reported. Medical History No medical history recorded. Gynecological HistoryNo gynecological history recorded. Obstetrics History GPAL:G 0 P 0 0 0 0 Past Encounters Encounter ID Performer Location Encounter Start Date Encounter Closed Date Diagnosis/Indication Diagnosis SNOMED-CT Code Diagnosis ICD10 Code Diagnosis Note [id number] MARGUERITE STYLES [facility] [place] [address] [place] [address] 11/19/2023 16:04:14 11/21/2023 04:07:06 Sensorineural hearing loss of bilateral ears 380734720 H90.3 [id number] MARGUERITE STYLES [facility] [address] [place] [address] 11/30/2023 13:26:39 12/01/2023 11:24:29 Sensorineural hearing loss of bilateral ears 936618452 H90.3 [id number] WALLY MORALES PA-C [facility] [address] [place] [address] 12/15/2023 13:03:38 12/15/2023 13:43:06 Acute sinusitis 35154631 J01.90 [id number] ANJELICA MENDEZ PA-C [facility] [address] [place] [address] 01/27/2024 10:24:15 01/28/2024 08:36:33 Chronic sinusitis 68809060 J32.8 Allergic rhinitis 527306 04 J30.89 [id number] DEEPTHI SUE PA-C [facility] [address] [place] [address] 03/02/2024 10:26:36 03/02/2024 11:05:56 Acute maxillary sinusitis 46955331 J01.00 [id number] CORKY RYAN PA-C [facility] [address] [place] [address] 06/29/2024 13:02:34 06/29/2024 13:47:00 Otorrhagia of left ear 1755735437 113359 H92.22 Impacted c erumen in left ear 2362651268 597608 H61.22 Otalgia of left ear 1010 883371 H92.02 Health Concerns Section Related Observation LastModified by Organization Detai ls LastModified Time None Recorded Concern Status LastModified by Organization Details LastModified Time None Recorded Advance Directives Directive None Recorded Payers Insurance Date Sequence Insurance Name Policy Number Policy Tristan Covered Member ID Tristan Member ID Guarantor Name 06/29/2024 1 [place] Ciarra Canseco [id number] Ciarra Canseco 06/29/2024 2 [place] [id number] Ciarra Canseco [id number] Ciarra Canseco 06/29/2024 3 [place] Ciarra Canseco [id number] Ciarra Canseco Notes Date Note Type Note Provider Name and Address Organization Details Recorded Time 11/30/2023 text/html STUART was sent out for repair while I was on vacation due to the hearing aid losing charge quickly. She came in today to warehouse order picker the hearing aid. Connected to software and paired the hearing aids together. I tried the device in her ice delivery driver and it was not lighting up still. Although it did not seem that the ice delivery driver was dirty, cleaning the ice delivery driver yielded positive results and the light on the ice delivery driver was working again. I told her that if the light stops working again then we need to send for another ice delivery driver. [place] visit. MARGUERITE STYLES [address] [facility],[address], [address], [facility] - [facility] 11/30/2023 13:31:13 12/15/2023 text/html 73-year-old melisa booth presents for reevaluation. At last visit she was noted to have a crust in the inferior canal on the left side. Use drops and has been having debris come out of the left ear. No issues with hearing or drainage from the ear. She has however been having facial pain and pressure on the right side with nasal congestion. This has been present for several weeks. Concerned about sinus infection. FACUNDO GARRISON MD [address] [facility],[address], [address], [facility] - [facility] 12/16/2023 08:13:33 01/27/2024 text/html 73 year old melisa booth with PMH of allergic rhinitis, asthma, and chronic sinusitis with nasal polyps presents for follow up of sinusitis. Since November, she has been treated with antibiotics 4 times (Augmentin, Cefdinir, Cefuroxime) with minimal relief. She completed Cefuroxime 6 days ago. She sees Allergy and Immunology for environmental allergy management and does weekly injections. Also takes Gladis, Flonase, and saline rinses. She continues with daily headache and PND. She was seen at [facility] ER a few days ago for headache and light headedness. The workup and head CT were negative. On Thursday she was seen at [facility] care for left ear pain and was told she had fluid in the ear. She took a course of Prednisone. Denies otorrhea or changes in her hearing. Her asthma flared in November when she noticed wheezing, but has since resolved. She denies recent fever and purulent discharge. Denies history of migraine. History of sinus surgery about 30 years ago. LUNA MCCLAIN MD [address] [place] [address],[address], [address], [facility] - [facility] 01/27/2024 16:37:33 03/02/2024 text/html 73 year old fema le with PMH of allergic rhinitis on immunotherapy, asthma, and chronic sinusitis with nasal polyps s/p sinus surgery presents for follow up of sinusitis. At exam last month nasal endoscopy demonstrated scant purulence of the maxillary sinus on the left. Culture was positive for MRSA and pseudomonas. Topical Gentamicin was prescribed to used in sinus rinse. She did not end up using this as she was hospitalized for 7 days and on IV antibiotics for pneumonia. She does not recall which antibiotic she was given but stated that it covered MRSA as she tested positive in the nares for MRSA. She reports that her sinuses are no longer bothering her. LUNA MCCLAIN MD [address] [facility],[address], [address], [facility] - [facility] 03/02/2024 12:47:30 06/29/2024 text/html 74yo female presents for evaluation of left ear pain. She reports sinus infection and left ear infection a couple weeks ago, treated with oral Doxycycline and topical cortisporin ear drops. Sinus symptoms significantly improved. Left otalgia persists. She denies ear drainage or hearing concern. TONY GILBERT MD [address] [facility],[address], [address], [facility] - [facility] 06/29/2024 17:24:38 OBGyn Episode No OBEpisode recorded.
== END 2024-11-23 10:06 | disposition home or self-care (01) ==
LOC: HO.RHES 09:32
PROVIDERS: PCP Internal Medicine; Visit Provider Internal Medicine Rheumatology
DX: M80.00XS Age-related osteoporosis with current pathological fracture, unspecified site, sequela (principal); Z79.899 Other long term (current) drug therapy
CPT/HCPCS: 99214; G2211

== ENCOUNTER → 2024-11-23 09:31 | Outpatient (BNVA) | payer MEDICARE, BC, MEDICAID, SELFPAY | PROVIDERS: PCP Internal Medicine; Visit Provider Internal Medicine Rheumatology | DX: M80.08XD Age-related osteoporosis with current pathological fracture, vertebra(e), subsequent encounter for fracture with routine healing (principal); Z79.899 Other long term (current) drug therapy | CPT/HCPCS: 99212 ==

== ENCOUNTER 2025-04-27 10:02 | Outpatient (AMB) | payer MEDICARE, BC, MEDICAID, SELFPAY ==
--- OUTSIDE RECORDS SUMMARY | 2025-02-15 04:00 | XMS_ITS ---
Author Organization [facility] Address [address] [place] [address] Care Team Providers Care Associate Civil Engineer Name Role Phone Kelsey COOK, Miriam Primary Care Provider Beau Martinez Unavailable [phone] REASON FOR VISIT Seen Sooner Medications Medication SIG (Take, Route, Frequency, Duration) Notes Start Date End Date Status Diabeta 5 mg 4 daily Unknown Amitriptyline HCl 10 mg Unknown Clopidogrel Bisulfate 75 MG 1 tablet Orally Once a day Unknown Clopidogrel Bisulfate 75 MG Oral; Duration: 90 Unknown Advair Diskus 250/50 twice daily Unknown PriLOSEC 20 mg Unkno wn Ranitidine Acid Policy Writer Typist 300 mg as directed Orally Unknown Claritin Unknown Aspirin 81 MG 1 tablet Orally Once a day Unknown amLODIPine Besylate Unknown Lisinopril Unknown amLODIPine Besylate 5 MG 1 tablet Orally Once a day; Duration: 30 day(s) Unknown DAPTOmycin 350 MG as directed Intravenous intravenous Unknown Lasix Unknown Bumex Unknown Extra Depth Orthopedic Shoes (1 Pair) with Customized Heat Molded Multidensity Innersoles (3 Pair) as directed Dx: 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), Hammertoe Foot Deformity (M20.41,M20.42), Preulcerative Skin Lesion(s) (L85.1) 07/04/2024 Unknown Xarelto 2.5 MG 1 tablet Orally Twic e a day Unknown Zetia 10 mg Unknown Singulair 10 mg Unkn own Reglan 5 mg twice daily Unknow n Pantoprazole Sodium 20 MG Oral; Duration: 90 Unknown Potassium Unknown Nitroglycerin prn Unknow n Praluent 75 MG/ML as directed every 4 days Unknown Pravachol 40 mg Unkn own Macrodantin 50 mg twice daily Unknown Metoprolol Succinate 100 MG 1 capsule Orally Once a day Unknown Magnesium Unknown Isosorbide Mononitrate 120MG Unknown Lantus 20 units Unkn own Furosemide 40 MG Oral; Duration: 90 Unknown Flonase Unknown Glucophage 500 mg 4 daily Un known Encounters Encounter Location Date Provider Diagnosis [facility] [place] [address] [place] [address] [place] [address] 02/15/2025 Beau London Plan Of Treatment Next Appt Details Provider Name:Beau London , 06/08/2025 03:45:00 PM, [address] [facility], [address] [facility], [place], [address], Progress Notes * Eamon CANSECOB:1950 (75 yo F)Acc No.[id number]:02/15/2025 Progress Note Patient: Ciarra STEINER Provider: Omega London DPM :1950 A ge:74 Y S ex:Female Date:02/15/2025 Address:[address] [place], [place] [address] Pcp:Miriam Cole MD Subjective: * Chief Complaints: * 1 . Seen Sooner. * Medical History: * Medications: U nknown Advair Diskus 250/50 twice daily , Unknown Amitriptyline HCl 10 mg , Unknown Clopidogrel Bisulfate 75 MG Tablet 1 tablet Orally Once a day , Unknown Diabeta 5 mg 4 daily , Unknown Furosemide 40 MG Tablet Oral , Unknown Flonase , Unknown Glucophage 500 mg 4 daily , Unknown Isosorbide Mononitrate , Notes to Pharmacist: 120MG, Unknown Lantus 20 units , Unknown Magnesium , Unknown Macrodantin 50 mg twice daily , Unknown Metoprolol Succinate 100 MG Capsule ER 24 Hour Sprinkle 1 capsule Orally Once a day , Unknown Nitroglycerin , Notes to Pharmacist: prn, Unknown Praluent 75 MG/ML Solution Auto-injector as directed every 4 days , Unknown Pantoprazole Sodium 20 MG Tablet Delayed Release Oral , Unknown Potassium , Unknown Pravachol 40 mg , Unknown Reglan 5 mg twice daily , Unknown Singulair 10 mg , Unknown Xarelto 2.5 MG Tablet 1 tablet Orally Twice a day , Unknown Zetia 10 mg , Unknown Extra Depth Orthopedic Shoes (1 Pair) with Customized Heat Molded Multidensity Innersoles (3 Pair) as directed Dx: 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), Hammertoe Foot Deformity (M20.41,M20.42), Preulcerative Skin Lesion(s) (L85.1) , Unknown Bumex , Unknown DAPTOmycin 350 MG Solution Reconstituted as directed Intravenous , Notes to Pharmacist: intravenous, Unknown Lasix , Unknown Lisinopril , Unknown amLODIPine Besylate 5 MG Tablet 1 tablet Orally Once a day , Unknown Aspirin 81 MG Tablet 1 tablet Orally Once a day , Unknown amLODIPine Besylate , Unknown Claritin , Unknown PriLOSEC 20 mg , Unknown Ranitidine Acid Policy Writer Typist 300 mg Tablet as directed Orally , Unknown Clopidogrel Bisulfate 75 MG Tablet Oral , Medication List reviewed and reconciled with the patient Objective: * Vitals: Assessment: Plan: * Treatment: * Images: * The named appointment provid er may or may not be the originator of this progress note, and it is not deemed complete until electronically signed by the appointment provider. Sign off status: Pending * Provider: Omega London DPM Date: 0 02/15/2025 Generated for Rossana kwok/Analilia/Cabrera on: 06/28/2024 11:53 AM EST
--- OUTSIDE RECORDS SUMMARY | 2025-04-17 10:30 | XMS_ITS ---
Author Organization [facility] Address [address] [place] [address] Care Team Providers Care Childrens Club Attendant Name Role Phone Kelsey COOK, Miriam Primary Care Provider Beau Martinez Unavailable [phone] Encounters Encounter Location Date Provider Diagnosis [address] [address] 04/17/2025 Beau London Plan Of Treatment Next Appt Details Provider Name:Beau London , 06/08/2025 03:45:00 PM, [address] [address], [place], [address], Progress Notes * Carly CANSECOReillyB:1950 (75 yo F)Acc No.[id number]:04/17/2025 Progress Note Patient: Ciarra STEINER Provider: Omega London DPM :1950 A ge:75 Y S ex:Female Date:04/17/2025 Address:[address] [place], [place] [address] Pcp:Miriam Cole MD Subjective: * Chief Complaints: * * Medical History: Objective: * Vitals: Assessment: Plan: * Treatment: * Images: * The named appointment provid er may or may not be the originator of this progress note, and it is not deemed complete until electronically signed by the appointment provider. Sign off status: Pending * Provider: Omega London DPM Date: 06/17/2024 Generated for Rossana kwok/Analilia/Cabrera on: 06/28/2024 11:52 AM EST
--- OUTSIDE RECORDS SUMMARY | 2025-04-21 08:45 | XMS_ITS | Encounter Summary ---
Author Organization [facility] Address [address] [place] [address] Care Team Providers Care Rapier Insertion Loom Fixer Name Role Phone Miriam Cole MD Primary Care Provider Tova Baldwin MD Unavailable Edmond Bermudez MD Unavailable [phone] Lawrence Hodges MD Unavailable Unavailabl e Encounter Details Date Type Department Care Team (Latest Contact Info) Description 04/21/2025 8:45 AM EST Clinical Support [facility] Heart & Vascular [facility] [address] [phone] Brendon Garcia DO [address] [address] 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 [Z95.9] (Primary Dx) Social History Tobacco Use Types Packs/Day Years Used Date Smoking Tobacco: Never Smokeless Tobacco: Never Alcohol Use Standard Drinks/Week Comments Not Currently 0 (1 standard drink = 0.6 oz pur e alcohol) AUDIT-C Answer Date Recorded Q1: How often do you have a drink containing alcohol? Never 12/21/2024 Q2: How many drinks containi ng alcohol do you have on a typical day when you are drinking? Patient does not drink Q3: How often do you have si x or more drinks on one occasion? Never 12/21/2024 Comments Unknown Sex and Gender Information Value Date Recorded Sex Assigned at Female 10/06/2022 9:58 AM EDT Legal Sex Female 2:09 PM EDT Gender Identity Female 12/06/2022 2:11 PM EDT Sexual Orientation Choose not to disclose 2022 11:59 PM EDT documented as of this encounter Progress Notes * Jolie Bennett RN - 04/21/2025 2:55 PM EST PA Sensor Billing Encounter Name: Ciarra Canseco Date of : 1950 Monitoring Period 30 days Prior to: 04/21/25 Optimal PA pressure range: Refer to Flowsheet Procedure code: CPT 32793 BACKGROUND: Ciarra Canseco was implanted with the CardioMEMS??? PA Sensor for the management of heart failure. I use this technology to monitor PA pressures on a weekly basis to ensure patients are within their optimal range to prevent decompensation. SUMMARY: Utilized the remote monitoring data from (Innorange Oy??? PCN) and our LUCILLE sets optimal targets for pulmonary artery pressure thresholds as part of acute and chronic management of the patient's heart failure. During the period indicated above, monitored the patient's pulmonary artery pressures at least weekly via trend analysis and notification alerts sent directly into patient's medical record ([employer]), which provides alerts when patient's PA pressures are outside of the set range, which then prompts immediate action in clinical review and communication with the patient. The daily data reports are in the [employer] flowsheet and are also archived in the [employer] system. [See Cardio[employer] of [employer]positories flowsheet for Trends]. Reviewed by: Jolie Bennett RN 04/24/2025 2:55 PM Cosigned by Brendon Garcia DO at 04/25/2025 7:48 AM EST documented in this encounter Plan of Treatment Upcoming Encounters Date Type Department Care Team (Late st Contact Info) Description 08/21/2025 3:00 PM EDT Office Visit [facility] Heart & Vascular [facility] Heart Failure [place] [address] [place] [phone] [place] [address] Edmond Bermudez MD [address] [place] [address] documented as of this encounter Visit Diagnoses Diagnosis 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 [Z95.9]- Primary documented in this encounter Care Teams Rapier Insertion Loom Fixer Relationship Specialty Start Date End Date Miriam Cole MD [address] [address] PCP - General Internal Medicine 10/06/22 Tova Baldwin MD [address] [address] Sap Bods Developer 11/26/22 Edmond Bermudez MD [address] [place] [address] Cardiovascular Disease 11/26/22 Lawrence Hodges MD [address] [place] [address] Referring Provider 12/18/22 documented as of this encounter
--- NOTE | 2025-04-27 10:04 | A.OFFVIS_ITS ---
Vital Signs 04/27/25 10:09 Height 4 ft 5 in Weight 169 lb 12.095 oz BMI 42.5 BP 140/74 H Blood Pressure Location Rt brachial Position Sitting Pulse 96 Pulse Source Pulse Oximeter Pulse Oximetry (%) 97 Oxygen Delivery Method Room Air Intake Visit Reasons: 5 Months Intake Note: Patient presents for follow up on osteoporosis. Accompanied by: Daughter Allergies cephalexin Allergy (Severe, Verified 04/27/25 10:22) Anaphylaxis ceftriaxone Allergy (Intermediate, Verified 04/27/25 10:22) BREATHING PROBLEMS ciprofloxacin (From Cipro) Allergy (Intermediate, Verified 04/27/25 10:22) Anaphylaxis doxycycline Allergy (Intermediate, Verified 04/27/25 10:22) HEADACHE, STOMACH ISSUES cefepime Allergy (Mild, Verified 04/27/25 10:22) Itching morphine Allergy (Unknown, Verified 04/27/25 10:22) Unknown alendronate sodium Adverse Reaction (Unknown, Verified 04/27/25 10:22) itching, rash ibuprofen Adverse Reaction (Unknown, Verified 04/27/25 10:22) Hives insulin isophane (NPH) Adverse Reaction (Unknown, Verified 04/27/25 10:22) Unknown insulin regular (From Humulin 70/30 U-100 Insulin) Adverse Reaction (Unknown, Verified 04/27/25 10:22) ITCHING AT SITE levofloxacin Adverse Reaction (Unknown, Verified 04/27/25 10:22) Anaphylaxis oxycodone Adverse Reaction (Unknown, Verified 04/27/25 10:22) Unknown pioglitazone (From Actos) Adverse Reaction (Unknown, Verified 04/27/25 10:22) Unknown sulfabenzamide Adverse Reaction (Unknown, Verified 04/27/25 10:22) Stomach Upset zafirlukast Adverse Reaction (Unknown, Verified 04/27/25 10:22) BREATHING PROBLEMS JARDIANCE Allergy (Severe, Uncoded 04/27/24 11:16) BREATHING PROBLEMS DILTIAZ Allergy (Intermediate, Uncoded 04/27/24 11:16) BREATHING PROBLEMS AMARYL Adverse Reaction (Intermediate, Uncoded 04/27/24 11:16) CONSTIPATION AMATYL Adverse Reaction (Unknown, Uncoded 04/27/24 11:16) Anaphylaxis ERYTHROMYCIN Adverse Reaction (Unknown, Uncoded 04/27/24 11:16) UNKNOWN FORTEO Adverse Reaction (Unknown, Uncoded 04/27/24 11:16) UNKNOWN glimepiride Adverse Reaction (Unknown, Uncoded 04/27/24 11:16) Unknown LEVAQUIN Adverse Reaction (Unknown, Uncoded 04/27/24 11:16) Angioedema moxif Adverse Reaction (Unknown, Uncoded 04/27/24 11:16) Anaphylaxis pioglita Adverse Reaction (Unknown, Uncoded 04/27/24 11:16) Unknown tramadol Adverse Reaction (Unknown, Uncoded 04/27/24 11:16) Unknown HPI HPI 5 Months: Details: Patient is accompanied with her daughter. She had bone density February 2025 [facility]. I do not have results. I was able to review results on patient's daughter portal access. Lowest T-score -2.6 right femoral neck. No fractures. No falls. She has dentures. She has been more activity with cooking since being monitored for heart failure closly. 1 tablet daily Vitamin-D 10mcg daily and Ca 650mg-vitamin D 25mcg daily (2 tabs) [facility] Medical History Common carotid artery injury Physical Exam Vital Signs: Last Vital Signs Pulse 96 04/27/25 10:09 BP 140/74 H 04/27/25 10:09 Pulse Ox 97 04/27/25 10:09 Oxygen Delivery Method Room Air 04/27/25 10:09 BMI result Body Mass Index 42.5 Const Other: General: Comfortable CVS: RRR Respiratory: clear to auscultation bilaterally. Good respiratory effort Skin: No lesions seen MSK: Tender to palpate lower lumbar spinous process and paraspinal muscles. Lumbar flexion was not assessed as patient has had multiple compression fractures in the past with history of osteoporosis. Normal cervical range of motion. Thoracic kyphosis present. Assessment & Plan Assessment & Plan (1) Osteoporosis: Comment: History of osteoporosis with multiple compression fractures while on treatment with Prolia. Delayed administration of denosumab doses by more than 16 weeks is associated with increased risk for vertebral fracture compared with on-time dosing, which likely led to her lumbar compression fracture in January 2023. She received Reclast infusion 11/12/2023 with flu-like symptoms as side effect causing increase back pain for a year. She is very limited with options for treatment as direct support professional home health and I have had a conversation who does not recommend treatment with the Evenity due to patient's extensive cardiac history. She did not tolerate Forteo in the past. Most recent bone density was reviewed with patient and her daughter from 03/20/2025, which confirms that she has bone density within osteoporotic range with the lowest T-score -2.6 right femoral neck. T-score of L1-L4 is 0.1 but likely is confounded with arthritis and compression fracture and lumbar spine. We discussed that the next best treatment for patient is to resume Prolia. Rheumatology history: Prior treatment for a few months on Forteo causing pruritus at injection site leading to discontinuation. She was on Prolia in the past then missed a dose in November 2022 and suffered a compression fracture in lumbar spine in January 2023. She had Reclast and experienced flu- like symptoms with increased back pain. Fosamax caused itchiness after 1 week. Code(s): M81.0 - Age-related osteoporosis without current pathological fracture Category: Medical Qualifiers: Encounter type: sequela Osteoporosis type: age-related Presence of current pathological fracture: with current pathological fracture Qualified Code(s): M80.00XS - Age-related osteoporosis with current pathological fracture, unspecified site, sequela Plan: Continue vitamin-D 1 tablet daily 10mcg daily and Ca 650mg-vitamin D 25mcg daily (2 tabs) requesting reports of all Bone density ordered at [facility] baseline bone turnover markers and drug monitoring labs ordered prior to starting Prolia. As soon as I have lab results, we will process PA for Prolia Return to clinic in 6 months with plan to have Prolia same day and labs 1 week before ( calcium, creatinine, vitamin-D) (2) Other distribution field engineer (current) drug therapy: Code(s): Z79.899 - Other distribution field engineer (current) drug therapy Category: Medical Plan: See above Orders: Orders Calcium Today M80.00XS - Age-related osteoporosis with current pathological fracture, unspecified site, sequela, Z79.899 - Other penitentiary (current) drug therapy Vitamin D 25-OH Total Today M80.00XS - Age-related osteoporosis with current pathological fracture, unspecified site, sequela, Z79.899 - Other penitentiary (current) drug therapy Thyroid Stimulating Hormone Today M80.00XS - Age-related osteoporosis with current pathological fracture, unspecified site, sequela, Z79.899 - Other penitentiary (current) drug therapy Collagen Type I C-Telopeptide Today M80.00XS - Age-related osteoporosis with current pathological fracture, unspecified site, sequela Albumin Level Today M80.00XS - Age-related osteoporosis with current pathological fracture, unspecified site, sequela, Z79.899 - Other distribution field engineer (current) drug therapy Parathyroid Hormone Intact Today M80.00XS - Age-related osteoporosis with current pathological fracture, unspecified site, sequela, Z79.899 - Other penitentiary (current) drug therapy Creatinine Today M80.00XS - Age-related osteoporosis with current pathological fracture, unspecified site, sequela, Z79.899 - Other distribution field engineer (current) drug therapy Alanine Aminotransferase Today M80.00XS - Age-related osteoporosis with current pathological fracture, unspecified site, sequela, Z79.899 - Other distribution field engineer (current) drug therapy Aspartate Amino Transferase Today M80.00XS - Age-related osteoporosis with current pathological fracture, unspecified site, sequela, Z79.899 - Other distribution field engineer (current) drug therapy Alkaline Phosphatase Bone Today M80.00XS - Age-related osteoporosis with current pathological fracture, unspecified site, sequela Coding Level of Care Code Est Pt Level 4 (06846) Complex visit Add On G2211 Diagnoses Age-related osteoporosis with current pathological fracture, sequela M80.00XS Encounter type: sequela Osteoporosis type: age-related Presence of current pathological fracture: with current pathological fracture Other penitentiary (current) drug therapy Z79.899
[2025-04-27 10:09] VITALS: BP 140/74; PULSE 96; O2SAT 97; BMI 42.5
--- OUTSIDE RECORDS SUMMARY | 2025-04-27 11:52 | XMS_ITS | Encounter Summary ---
Author Organization [facility] Address [address] [place] [address] Care Team Providers Care Knapsack Sprayer Name Role Phone Miriam Cole MD Primary Care Provider Encounter Details Date Type Department Care Team (Late Contact Info) Description 08/22/2024 Lab Requisition [facility] - Main Lab [address] [place] [address] Samson Larios NP [address] [place], [place] [phone] Essential (primary) hypertension; Type 2 diabetes mellitus without complications ([facility] V24, [facility] V28) Social History Tobacco Use Types Packs/Day Years [...] Department Care Team (Late Contact Info) Description 06/09/2025 1:00 PM EST Appointment [facility] Ultrasound [address] [place] [address] 06/14/2025 1:00 PM EST Appointment [facility] Ultrasound [address] [place] [phone] 07/14/2025 8:40 AM EST Office Visit [facility] - [facility] [address] [facility] [address] [place] [phone] Merry Galaviz NP [address] [place] [address] [address] [place] [address] 09/25/2025 2:40 PM EDT Office Visit Gastroenterology - 299 [facility] [address] [facility] [address] [place] [address] Felicita Gamble PA [address] [facility] [address] [place] [address] 10/02/2025 2:00 PM EDT Office Visit Pulmonology - [place] [address] [facility] [address] [place] [phone] Shanell Dominguez MD [address] [place] [phone] 01/24/2026 11:30 AM EDT Office Visit Vascular Surgery - [place] [address] [facility] [address] [place] [address] Arlette Meyer MD [address] [place] [phone] documented as of this encounter Procedures Procedure Name Priority Date/Time Associated Diagnosis Comments COMPLETE BLOOD COUNT Routine 08/22/2024 10:10 AM EDT Essential (primary) hypertension Type 2 diabetes mellitus without complications COMPREHENSIVE METABOLIC PANEL Routine 08/22/2024 10:10 AM EDT Essential (primary) hypertension Type 2 diabetes mellitus without complications documented in this encounter Results * (ABNORMAL) Comprehensive metabolic panel (08/22/2024 10:10 AM EDT) [facility] Signature Sodium 133 133 - 145 mmol/L LAB CHEMISTRY METHOD 08/22/2024 1:12 PM [facility] Potassium 4.1 3.5 - 5.5 mmol/L LAB CHEMISTRY METHOD 08/22/2024 1:12 PM [facility] Chloride 103 96 - 110 mmol/L LAB CHEMISTRY METHOD 08/22/2024 1:12 PM [facility] CO2 20(L) 21 - 32 mmol/L LAB CHEMISTRY METHOD 08/22/2024 1:12 PM [facility] Anion Gap 10 3 - 11 LAB CHEMISTRY METHOD 08/22/2024 1:12 PM [facility] Glucose 313(H) 70 - 100 mg/dL LAB CHEMISTRY METHOD 08/22/2024 1:12 PM [facility] BUN 17 5 - 25 mg/dL LAB CHEMISTRY METHOD 08/22/2024 1:12 PM [facility] Creatinine 0.73 0.50 - 1.10 mg/dL LAB CHEMISTRY METHOD 08/22/2024 1:12 PM [facility] eGFR 88 >=60 mL/min/1. 73m2 LAB CHEMISTRY METHOD 08/22/2024 1:12 PM [facility] Comment:Calculation based on the Chronic Kidney Disease Epidemiology Collaboration (CKD-EPI) equation refit without adjustment for race. BUN/Creatinine Ratio 23.3 LAB CHEMISTRY METHOD 08/22/2024 1:12 PM [facility] Calcium 8.9 8.5 - 10.5 mg/dL LAB CHEMISTRY METHOD 08/22/2024 1:12 PM [facility] AST (SGOT) 28 10 - 42 unit/L LAB CHEMISTRY METHOD 08/22/2024 1:12 PM [facility] ALT (SGPT) 21 10 - 60 unit/L LAB CHEMISTRY METHOD 08/22/2024 1:12 PM [facility] Alkaline Phosphatase 150(H) 42 - 121 unit/L LAB CHEMISTRY METHOD 08/22/2024 1:[address] [facility] Total Protein 6.8 6.0 - 8.0 g/dL LAB CHEMISTRY METHOD 08/22/2024 1:[address] [facility] Albumin 2.4(L) 3.2 - 5.0 g/dL LAB CHEMISTRY METHOD 08/22/2024 1:[address] [facility] Total Bilirubin 0.3 0.0 - 1.4 mg/dL LAB CHEMISTRY METHOD 08/22/2024 1:[address] [facility] Blood Venous blood specimen / Unknown Venipuncture / Unknown 08/22/2024 10:10 AM EDT 08/22/2024 11:28 AM EDT Samson Larios NP LAB BLOOD ORDERABLES Final Resul t [facility] [address] [place] [address], * (ABNORMAL) Complete blood count (08/22/2024 10:10 AM EDT) WBC 16.6(H) 4.8 - 10.8 K/mcL LAB HEMETOLOGY METHOD 08/22/2024 1:[address] [facility] RBC 3.60(L) 3.80 - 4.80 M/mcL LAB HEMETOLOGY METHOD 08/22/2024 1:[address] [facility] Hemoglobin 9.9(L) 11.5 - 16.0 g/dL LAB HEMETOLOGY METHOD 08/22/2024 1:[address] [facility] Hematocrit 31.4(L) 35.0 - 47.0 % LAB HEMETOLOGY METHOD 08/22/2024 1:[address] [facility] MCV 87.5 79.0 - 98.0 FL LAB HEMETOLOGY METHOD 08/22/2024 1:[address] [facility] MCH 27.6 27.0 - 32.0 pcg LAB HEMETOLOGY METHOD 08/22/2024 1:[address] [facility] MCHC 31.5(L) 32.0 - 37.0 g/dL LAB HEMETOLOGY METHOD 08/22/2024 1:[address] [facility] RDW 14.6 11.0 - 15.0 % LAB HEMETOLOGY METHOD 08/22/2024 1:[address] [facility] Platelets 495(H) 130 - 400 K/mcL LAB HEMETOLOGY METHOD 08/22/2024 1:[address] [facility] MPV 10.2 7.0 - 11.0 FL LAB HEMETOLOGY METHOD 08/22/2024 1:[address] [facility] NRBC 0.0 <1.0 % LAB HEMETOLOGY METHOD 08/22/2024 1:[address] [facility] NRBC Absolute 0.00 <0.10 K/mcL LAB HEMETOLOGY METHOD 08/22/2024 1:[address] [facility] Blood Venous blood specimen / Unknown Venipuncture / Unknown 08/22/2024 10:10 AM EDT 08/22/2024 11:28 AM EDT us Samson Larios NP LAB BLOOD ORDERABLES Final Resul t [facility] [address] [place] [address], documented in this encounter Visit Diagnoses Diagnosis Essential (primary) hypertension Unspecified essential hypertension Type 2 diabetes mellitus without complications (CMS/HCC V24, CMS/HCC V28) documented in this encounter Additional Health Concerns Infection Onset Date Last Indicated Resolved Time Respiratory Rule-Out 10/16/2024 10/16/2024 025 9:47 AM EDT COVID-19 Rule-Out 10/16/2024 10/16/2024 10/16/2024 9:47 AM EDT documented as of this encounter Care Teams Knapsack Sprayer Relationship Specialty Start Date End Date Miriam Cole MD [address] [place] [address] PCP - General Internal Medicine 04/26/24 documented as of this encounter
--- OUTSIDE RECORDS SUMMARY | 2025-04-27 11:52 | XMS_ITS | Encounter Summary ---
Author Organization [facility] Address [address] [place] [address] Care Team Providers Care Metal Washing Machine Operator Name Role Phone Miriam Cole MD Primary Care Provider Encounter Details Date Type Department Care Team (Late st Contact Info) Description 07/15/2024 Lab Requisition [facility] - Main Lab [address] [facility] [place] [phone] Tray Arias, JAMES [address] [place] [address] Urinary tract infection, site not [...] Info) Description 06/09/2025 1:00 PM EST Appointment [facility] Ultrasound [address] [place] [phone] 06/14/2025 1:00 PM EST Appointment [facility] Ultrasound [address] [place] [phone] 07/14/2025 8:40 AM EST Office Visit [facility] - [facility] [address] [facility] [address] [place] [phone] Merry Galaviz NP [address] [place] [address] [address] [place] [address] 09/25/2025 2:40 PM EDT Office Visit Gastroenterology - 299 [facility] [address] [facility] [address] [place] [address] Felicita Gamble PA [address] [facility] [address] [place] [address] 10/02/2025 2:00 PM EDT Office Visit Pulmonology - [place] [address] [facility] [address] [place] [phone] Shanell Dominguez MD [address] [place] [phone] 01/24/2026 11:30 AM EDT Office Visit Vascular Surgery - [place] [address] [facility] [address] [place] [phone] Arlette Meyer MD [address] [place] [phone] documented as of this encounter Procedures Procedure Name Priority Date/Time Associated Diagnosis Comments CULTURE URINE Routine 07/15/2024 3:15 PM EST Urinary tract infection, site not specified documented in this encounter Results * Culture urine (07/15/2024 3:15 PM EST) Culture, Urine 50,000-99,000 CFU/mL Mixed urogenital cuong, no uropathogens present. Suggest repeat specimen if clinically indicated. 07/17/2024 12:22 PM EST [facility] Urine Urine specimen obtained by clean catch procedure / Unknown 07/15/2024 3:15 PM EST 07/15/2024 6:54 PM EST us [facility] MICROBIOLOGY - GENERAL ORD ERABLES Final Result [facility] [address] [place] [address], documented in this encounter Visit Diagnoses Diagnosis Urinary tract infection, site not specified documented in this encounter Additional Health Concerns Infection Onset Date Last Indicated Resolved Time Respiratory Rule-Out 10/16/2024 10/16/2024 025 9:47 AM EDT COVID-19 Rule-Out 10/16/2024 10/16/2024 10/16/2024 9:47 AM EDT documented as of this encounter Care Teams Metal Washing Machine Operator Relationship Specialty Start Date End Date Miriam Cole MD [address] [place] [address] PCP - General Internal Medicine 04/26/24 documented as of this encounter
--- OUTSIDE RECORDS SUMMARY | 2025-04-27 11:52 | XMS_ITS ---
Author Name [facility] Organization Unknown Results Test Name/Text Value Interpretation Date Range Source POC Glucose 299.0 mg/dL Above high normal 12/21/2024 65 - 99 [facility] BUN SerPl-mCnc 22.0 mg/dL Above high normal 12/21/2024 8 - 2 1 [facility] GFR/BSA.pred SerPlBld MBR-HRV-DeKKke >90.0 12/21/2024 59 - [facility] Creat SerPl-mCnc 0.6 mg/dL 12/21/2024 0.4 - 1.1 [facility] CCT Hgb Bld-mCnc 11.2 g/dL Below low normal 12/21/2024 11.7 - 15 .7 [facility] Hct VFr Bld Auto 34.3 % Below low normal 12/21/2024 35 - 47 [facility] POC Glucose 235.0 mg/dL Above high normal 12/21/2024 65 - 99 [facility] Hgb Bld-mCnc 10.7 g/dL Below low normal 12/11/2024 11.7 - 15 .5 [facility] RBC Auto-EntMCnc 29.5 g/dL Below low normal 12/11/2024 32 - 36 [facility] RBC Qn Auto 26.5 pg Below low normal 12/11/2024 27 - 3 3 [facility] RBC # Bld Auto 4.04 Million/uL Normal 12/11/2024 3.8 - 5. 1 [facility] WBC # Bld Auto 9.3 Thousand/uL Normal 12/11/2024 3.8 - 10 .8 [facility] Hct VFr Bld Auto 36.3 % Normal 12/11/2024 35 - 45 [facility] EST PMV Bld [place]o-Shantanu 9.3 fL Normal 12/11/2024 7.5 - 12.5 [facility] RBC Auto 89.9 fL Normal 12/11/2024 80 - 100 [facility] Platelet # Bld Auto 354.0 Thousand/uL Normal 12/11/2024 140 - 400 [facility] RDW RBC Auto 13.3 % Normal 12/11/2024 11 - 15 [facility] BUN SerPl-mCnc 25.0 mg/dL Normal 12/11/2024 7 - [address] Potassium SerPl-sCnc 4.3 mmol/L Normal 12/11/2024 3.5 - 5 .3 [facility] Creat SerPl-mCnc 0.77 mg/dL Normal 12/11/2024 0.6 - 1 Q [facility] BUN/Creat SerPl SEE NOTE: 12/11/2024 6 - [address] Glucose SerPl-mCnc 210.0 mg/dL Above high normal 12/11/2024 65 - 139 [facility] Sodium SerPl-sCnc 135.0 mmol/L Normal 12/11/2024 135 - 14 6 [facility] Chloride SerPl-sCnc 95.0 mmol/L Below low normal 12/11/2024 98 - 110 [facility] Calcium SerPl-mCnc 9.9 mg/dL Normal 12/11/2024 8.6 - 10.4 [facility] CO2 SerPl-sCnc 30.0 mmol/L Normal 12/11/2024 20 - 32 [facility] eGFRcr SerPlBld CKD-EPI 2020 82.0 mL/min/1.73m2 Normal 12/11/2024 - [facility] History of Medication Use Medication Directions Dispensed Refills Start Date End Date Stat metoPROLOL SUCCINATE (TOPROL-XL) 50 MG 24 hr tablet Take 1 tablet (50 mg total) by mouth daily. 03/14/2025 active perflutren lipid microsphere (DEFINITY) 1.3 mL in sodium chloride (NS) 0.9 % 10 mL 0.5-8 mL, Intravenous, Once in imaging, other, Starting on Thu11/15/24 at 1503, For 1 dose, Document total dose administered per policy 11/15/2024 5 completed spironolactone (ALDACTONE) 25 MG tablet Take 1 tablet (25 mg total) by mouth daily. 03/08/2024 5 aborted furosemide (LASIX) 40 MG tablet Take 0.5 tablets (20 mg total) by mouth 2 (two) times a day in the morning and the early evening.. Take 40 mg (2 tablets) in the morning and 20 mg (1 tablet) in the early evening. 08/13/2023 4 active furosemide (LASIX) 40 MG tablet Take 1 tablet (40 mg total) by mouth 2 (two) times a day in the morning and the early evening.. 12/01/2022 4 active bumetanide (BUMEX) 1 MG tablet Take 2 tablets (2 mg total) by mouth 2 (two) times a day in the morning and the early evening.. 11/26/2022 3 active acetaminophen (TYLENOL) 500 MG tablet Take 2 tablets (1,000 mg total) by mouth 4 (four) times a day as needed. 08/11/2022 3 active fluticasone-salmetero l (ADVAIR) 250-50 mcg/inh diskus inhaler Inhale 1 puff 2 (two) times a day. 5 active amLODIPine (NORVASC) 2.5 MG tablet Take 1 tablet (2.5 mg total) by mouth daily. 4 active tiotropium (SPIRIVA RESPIMAT) 2.5 MCG/ACT inhaler Inhale 2 puffs (5 mcg total) daily. 4 active bumetanide (BUMEX) 2 MG tablet Take 1 tablet (2 mg total) by mouth 2 times a day. 3 active amitriptyline (ELAVIL) 5 MG tablet Take 2 split tablet (10 mg total) by mouth nightly. 3 aborted Biotin 2500 MCG Cap Take 1 tablet by mouth daily. 3 active calcium carbonate-vitamin D (CALTRATE+D) 600 mg-10 mcg tablet Take 2 tablets by mouth every morning with breakfast. 3 active cholecalciferol (CHOLECALCIFEROL) 25 MCG (1000 UT) tablet Take 1 tablet (1,000 Units total) by mouth 2 (two) times a day. 3 active cycloSPORINE (RESTASIS) 0.05 % ophthalmic emulsion 1 drop twice daily (every 12 hours). 3 active denosumab (PROLIA) 60 mg/mL Solution Prefilled Syringe subcutaneous injection Inject 1 mL (60 mg total) under the skin every 6 (six) months. Administer in the upper arm, upper thigh, or abdomen. 3 aborted diazepam (VALIUM) 2 MG tablet Take 1 tablet (2 mg total) by mouth 4 times daily (every 6 hours) as needed for anxiety. 3 active EPINEPHrine 0.3 mg/0.3 mL IJ auto-injection Inject 0.3 mL (0.3 mg total) into the shoulder, thigh, or buttocks once as needed for allergic reaction. 3 aborted ferrous gluconate (FERGON) 324 MG tablet Take 3 tablets (972 mg total) by mouth every morning with breakfast. Take 2 hours before or 4 hours after acid reducers. 3 aborted fluticasone (FloNASE) 50 mcg/spray nasal spray 1 spray into each nostril 2 (two) times a day in the morning and the early afternoon. 3 aborted guaiFENesin (MUCINEX) 600 MG 12 hr tablet Take 1 tablet (600 mg total) by mouth daily. 3 active metoCLOPRAMIDE (REGLAN) 5 MG tablet Take 1 tablet (5 mg total) by mouth 2 (two) times a day in the morning and the early afternoon. 3 aborted multivitamin Tab tablet Take 1 tablet by mouth daily. 3 active nitrofurantoin (MACRODANTIN) 50 MG capsule Take 1 capsule (50 mg total) by mouth 2 times a day. Dispense MACRODANTIN. 3 aborted [place] 3 1000 MG Cap capsule Take 1,000 mg by mouth daily. Administer whole. Do not break. 3 active bumetanide (BUMEX) 1 MG tablet Take 1.5 tablets (1.5 mg total) by mouth 2 (two) times a day in the morning and the early evening.. 3 aborted albuterol (PROAIR RESPICLICK) 108 (90 Base) MCG/ACT inhaler Inhale 1 puff 4 times daily (every 6 hours) as needed for wheezing. active alirocumab (Praluent) 75 MG/ML auto-injector Inject 1 mL (75 mg total) under the skin every 14 days (2 weeks). active clopidogrel (Plavix) 75 MG tablet Take 1 tablet (75 mg total) by mouth daily. active ezetimibe (ZeTIA) 10 MG tablet Take 1 tablet (10 mg total) by mouth daily. active glyBURIDE (DIAbeta) 5 mg tablet Take 2 tablets (10 mg total) by mouth 2 (two) times a day with meals. active insulin aspart (NovoLOG) 100 UNIT/ML injection Inject 0.02 mL (2 Units total) under the skin 3 (three) times a day before meals. Sliding scale (see instructions) active insulin glargine (LANtus/SEMGLEE) 100 units/mL injection Inject 0.2 mL (20 Units total) under the skin nightly. active isosorbide mononitrate (IMDUR) 30 MG 24 hr tablet Take 4 tablets (120 mg total) by mouth daily. active magnesium oxide 400 (240 Mg) MG Tab tablet Take 1 tablet (400 mg total) by mouth 2 (two) times a day. Take 2 hours apart from other medications; take with food active metFORMIN (GLUCOPHAGE-XR) 500 MG 24 hr tablet Take 2 tablets (1,000 mg total) by mouth 2 times a day. Swallow whole. Do not crush, break or chew. active metoPROLOL SUCCINATE (TOPROL-XL) 100 MG 24 hr tablet Take 1 tablet (100 mg total) by mouth daily. active montelukast (SINGULAIR) 10 MG tablet Take 1 tablet (10 mg total) by mouth nightly. active PANTOprazole (PROTONIX) 40 MG EC tablet Take 1 tablet (40 mg total) by mouth 2 times a day. active potassium chloride (KLOR-CON M20) 20 MEQ tablet Take 1 tablet (20 mEq total) by mouth daily. Swallow whole, do not crush. Take with food active pravastatin (PRAVACHOL) 80 MG tablet Take 1 tablet (80 mg total) by mouth daily. active rivaroxaban (XARELTO) 2.5 MG tablet Take 1 tablet (2.5 mg total) by mouth 2 times a day. active umeclidinium bromide (INCRUSE ELLIPTA) 62.5 mcg/inh inhaler Inhale 1 puff daily. active Allergies Allergen Reaction Severity Comment Documented Date Source Statu s CEFEPIME OTHER (SEE COMMENTS) [facility] 09/30/2024 [facility] active ALENDRONATE UNKNOWN/PATIENT AND FAMILY UNABLE TO DEFINE 11/26/2022 [facility] active AMOBARBITAL UNKNOWN/PATIENT AND FAMILY UNABLE TO DEFINE 11/26/2022 [facility] active CEFUROXIME HIVES 11/26/2022 [facility] active CEPHALEXIN HIVES 11/26/2022 [facility] active DILTIAZEM HIVES 11/26/2022 [facility] active DOXYCYCLINE UNKNOWN/PATIENT AND FAMILY UNABLE TO DEFINE 11/26/2022 [facility] active EMPAGLIFLOZIN UNKNOWN/PATIENT AND FAMILY UNABLE TO DEFINE 11/26/2022 [facility] active ERYTHROMYCIN UNKNOWN/PATIENT AND FAMILY UNABLE TO DEFINE 11/26/2022 [facility] active GLIMEPIRIDE UNKNOWN/PATIENT AND FAMILY UNABLE TO DEFINE 11/26/2022 [facility] active IBUPROFEN HIVES 11/26/2022 [facility] active INDOMETHACIN UNKNOWN/PATIENT AND FAMILY UNABLE TO DEFINE 11/26/2022 [facility] active INSULIN ISOPHANE ITCHING 11/26/2022 [facility] acti ve LEVOFLOXACIN HIVES 11/26/2022 [facility] active MOXIFLOXACIN ANAPHYLAXIS 11/26/2022 [facility] acti ve PARATHYROID HORMONE (RECOMB) ITCHING 11/26/2022 [facility] active PIOGLITAZONE UNKNOWN/PATIENT AND FAMILY UNABLE TO DEFINE 11/26/2022 [facility] active SULFAMETHOXAZOLE-TRI METHOPRIM SHORTNESS OF BREATH 11/26/2022 [facility] ZAFIRLUKAST UNKNOWN/PATIENT AND FAMILY UNABLE TO DEFINE 11/26/2022 [facility] active Problems Problem Status Onset Date Problem Type Date of Resoluti on Source 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 active 2025-03-27 [facility] Atrial fibrillation active 2022-11-30 [facility] Chronic heart failure with preserved ejection fraction active 2022-11-30 [facility] CHF (congestive heart failure), NYHA class III active 2024-12-08 ProblemAct [facility] Encounters Encounter Type Encounter Reason Primary Diagnosis Location Date Ambulatory [facility] cardiac and vascular implant and graft, unspecified [facility] of cardiac and vascular implant and graft, unspecified [facility] 04/24/2025 Ambulatory [facility] of cardiac and vascular implant and graft, unspecified [facility] of cardiac and vascular implant and graft, unspecified [facility] 03/27/2025 Ambulatory [facility] of cardiac and vascular implant and graft, unspecified [facility] of cardiac and vascular implant and graft, unspecified [facility] 02/22/2025 Ambulatory Chronic diastolic (congestive) heart failure Chronic diastolic (congestive) heart failure [facility] 02/07/2025 Ambulatory [facility] [place] 01/26/2025 Ambulatory Presence of cardiac and vascular implant and graft, unspecified [facility] of cardiac and vascular implant and graft, unspecified [facility] 01/24/2025 Ambulatory [facility] 01/17/2025 Ambulatory [facility] 01/06/2025 Ambulatory [facility] 01/02/2025 Ambulatory [facility] 12/22/2024 Ambulatory Heart failure, unspecified Heart failure, unspecified [facility] 12/21/2024 Ambulatory Chronic diastolic (congestive) heart failure Chronic diastolic (congestive) heart failure [facility] 12/15/2024 Ambulatory Chronic diastolic (congestive) heart failure Chronic diastolic (congestive) heart failure [facility] 11/15/2024 Ambulatory Chronic diastolic (congestive) heart failure Chronic diastolic (congestive) heart failure [facility] 09/30/2024 Ambulatory Chronic diastolic (congestive) heart failure Chronic diastolic (congestive) heart failure [facility] 03/08/2024 Ambulatory Chronic diastolic (congestive) heart failure Chronic diastolic (congestive) heart failure [facility] 11/24/2023 Ambulatory Chronic diastolic (congestive) heart failure Chronic diastolic (congestive) heart failure [facility] 06/16/2023 Emergency Shortness of breath [facility] 12/12/2022 Ambulatory Chronic diastolic (congestive) heart failure Chronic diastolic (congestive) heart failure [facility] 11/26/2022 Care Team Organization Name Specialty Phone Email Start Date End Da te [facility]Y [facility] 09/30/2024 [facility]STIDES CALVOCATERINADAVID Primary Care 11/26/202211/26 [facility] ARISTIDES MCDONALD Primary Care 11/26/2022
--- OUTSIDE RECORDS SUMMARY | 2025-04-27 11:52 | XMS_ITS | Clinical Summary ---
Author Organization [facility] Address [address] [place] [address] Phone Care Team Providers Care Fudger Name Role Phone Miriam Cole MD Primary Care Provider [phone] Allergies Active Allergy Reactions Criticality Noted Date Comments Adhesive 09/26/2021 Other reaction(s): Other (see comments) Alendronic Acid 11/28/2012 Amobarbital 06/25/2016 Amoxicillin GI intolerance Low 09/13/2008 Aspirin GI intolerance Low 06/25/2016 Cefepime Anaphylaxis High 10/13/2024 Ceftriaxone Itching High 03/14/2024 Itchyness Cefuroxime Other Medium 06/25/2016 Passed out Cephalexin 06/25/2016 Ciprofloxacin Anaphylaxis High 06/25/2016 Diltiazem 06/25/2016 Empagliflozin Other 04/10/2021 Leg cramps & upset stomach Erythromycin Respiratory Issues Medium 09/13/2008 Glimepiride 11/28/2012 Ibuprofen Hives Low 06/25/2016 Indomethacin 06/25/2016 Insulin Isophane (Nph) 02/28/2022 Insulin Nph Human Isophane 11/28/2012 Humulin N (INSULIN ISOPHANE HUMAN) Insulin Regular Headache Low 03/15/2021 Insulin Zinc Human Recombinant 02/28/2022 Levofloxacin Anaphylaxis High 06/25/2016 Morphine Anxiety Low 10/09/2024 Moxifloxacin Rash,Anaphylaxis High 06/25/2016 Other 06/25/2016 METACRESOL-TERIPARA TIDE Oxycodone Respiratory Issues High 10/09/2024 Hives Pioglitazone 02/06/2010 Teriparatide Itching,Unknown 01/16/2024 Tramadol Rash High 10/09/2024 Zafirlukast 11/28/2012 Medications albuterol HFA (PROAIR HFA ; PROVENTIL HFA ; VENTOLIN HFA) 90 mcg/actuation inhaler Inhale 2 Puffs into the lungs every 6 hours as needed for Wheezing or Shortness of Breath for up to 30 days. 03/14/20 24 Active INSULIN LISPRO SUBQ Inject into the skin. Active melatonin 1 mg tablet Take by mouth at bedtime. Active montelukast (SINGULAIR) 10 mg tablet Take 1 Tablet by mouth at bedtime. Active furosemide (LASIX) 40 mg tablet Take 1.5 tablets (60 mg total) by mouth 2 (two) times a day. 08/11/19 24 Active metoprolol succinate (TOPROL-XL) 100 mg 24 hr tablet Take 1 Tablet by mouth every morning. Active clopidogreL (PLAVIX) 75 mg tablet Take 75 mg by mouth daily. Active pantoprazole (PROTONIX) 20 mg EC tablet 2 tablets (40 mg total). 09/19/19 22 Active calcium carbonate-vit D3-min 600 mg-10 mcg (400 unit) tablet Active albuterol sulfate (ProAir RespiClick) 90 mcg/actuation aerosol powdr breath activated Inhale 2 Puffs into the lungs every 4 hours as needed. Active insulin glargine (LANTUS SoloStar) 100 unit/mL (3 mL) injection pen Inject into the skin. 18-24 units at bed Active diazePAM (VALIUM) 2 mg tablet Take 2 mg by mouth 2 times daily. Active glucose blood test strip 1 Strip by In Vitro route as needed. Active omega-3 acid ethyl esters (LOVAZA) 1 gram capsule Take by mouth. Activ e metFORMIN (GLUCOPHAGE) 500 mg tablet Take 2 Tabs by mouth 2 Times Daily. Active amitriptyline (ELAVIL) 10 mg tablet Take 10 mg by mouth at bedtime. Active multivit-min/ir on/folic acid/K (ADULTS MULTIVITAMIN ORAL) Take 1 Tab by mouth daily. Active EPINEPHrine (EPIPEN) 0.3 mg/0.3 mL injectionIndica tions:Asymptoma tic bilateral carotid artery stenosis INJECT CONTENTS OF 1 PEN INTO THE MUSCLE ONCE NEEDED FOR ANAPHYLAXIS. CALL 911 AFTER Active Praluent Pen 75 mg/mL pen injector INJECT CONTENTS OF 1 PEN UNDER THE SKIN ONCE EVERY 14 DAYS 6 mL 2 08/27/19 25 Active calcium citrate-vitamin D (CITRACAL+D) 315 mg-5 mcg (200 unit) per tablet Take 1 tablet by mouth 1 (one) time each day. Active simethicone (MYLICON) 125 mg chewable tablet Chew every 6 (six) hours if needed for flatulence. Active ferrous gluconate 256 mg (28 mg iron) tablet Take 1 tablet (28 mg total) by mouth. Active acetaminophen (TYLENOL) 500 mg tablet Take 2 tablets (1,000 mg total) by mouth every 6 (six) hours if needed for mild pain or moderate pain. 30 tablet 10/22/19 25 Active magnesium oxide (MAG-OX) 400 mg magnesium tablet Take 1 tablet (400 mg total) by mouth 2 (two) times a day. Active albuterol 2.5 mg /3 mL (0.083 %) nebulizer solution Take 3 mL (2.5 mg total) by nebulization every 6 (six) hours if needed for wheezing. 300 mL 11 11/12/19 25 2025 Active albuterol 2.5 mg /3 mL (0.083 %) nebulizer solutionIndicat ions:Moderate persistent asthma, unspecified whether complicated Take 3 mL (2.5 mg total) by nebulization every 4 (four) hours if needed for wheezing. 300 mL 3 11/11/19 25 2025 Active pravastatin (PRAVACHOL) 80 mg tablet TAKE 1 TABLET DAILY 90 tablet 3 01/03/20 25 Active Xarelto 2.5 mg tablet TAKE 1 TABLET TWICE A DAY (DOSE DECREASED/CYR ED IN [facility] IN 08/2022) 180 tablet 3 01/19/20 25 Active metoclopramide (REGLAN) 5 mg tabletIndicatio ns:Gastroesopha geal reflux disease without esophagitis Take 1 tablet (5 mg total) by mouth 2 (two) times a day. 180 tablet 03/08/20 25 Active metoprolol succinate (TOPROL-XL) 50 mg 24 hr tablet Take 1 tablet (50 mg total) by mouth 1 (one) time each day. Do not crush or chew. Active fluticasone-todd meterol (Wixela Inhub) 250-50 mcg/dose diskus inhaler Inhale 1 puff by mouth 2 (two) times a day. Rinse mouth with water after use to reduce aftertaste and incidence of candidiasis. Do not swallow. 3 each 3 03/27/20 25 2025 Active umeclidinium (Incruse Ellipta) 62.5 mcg/actuation inhalation Inhale 1 puff by mouth 1 (one) time each day. 3 each 3 03/27/20 25 2025 Active lidocaine (LIDODERM) 5 % patchIndication s:Sciatica of right side Apply 1 patch topically 1 (one) time each day. Remove & discard patch within 12 hours or as directed by MD. 30 each 04/07/20 25 2024 Active KLOR-CON 20 mEq CR tablet TAKE 1 TABLET DAILY 90 tablet 2 04/10/20 Active isosorbide mononitrate (IMDUR) 30 mg 24 hr tablet TAKE 4 TABLETS DAILY 360 tablet 2 04/25/20 Active KLOR-CON 20 mEq CR tablet TAKE 1 TABLET DAILY 90 tablet 2 07/04/19 25 2024 Discontinued isosorbide mononitrate (IMDUR) 30 mg 24 hr tablet TAKE 4 TABLETS DAILY 360 tablet 2 07/28/19 25 2024 Discontinued HYDROmorphone (DILAUDID) 2 mg tabletIndicatio ns:Sciatica of right side Take 1 tablet (2 mg total) by mouth every 4 (four) hours if needed for severe pain for up to 5 days. Max Daily Amount: 12 mg 10 tablet 04/07/20 25 2024 Discontinued lidocaine (LIDODERM) 5 % patchIndication s:Sciatica of right side Apply 1 patch topically 1 (one) time each day. Remove & discard patch within 12 hours or as directed by . 30 each 04/07/20 25 2024 Discontinued HYDROmorphone (DILAUDID) 2 mg tabletIndicatio ns:Sciatica of right side Take 1 tablet (2 mg total) by mouth every 4 (four) hours if needed for severe pain for up to 5 days. Max Daily Amount: 12 mg 10 tablet 04/07/20 25 2024 Active Problems Problem Noted Date Diagnosed Date TIA (transient ischemic attack) 10/09/2024 Carotid stenosis, left 10/07/2024 History of myocardial infarction 08/04/2022 Chronic hyponatremia 08/04/2022 Viral syndrome 05/07/2022 Chronic heart failure with p reserved ejection fraction ([facility] V24, [facility] V28) 04/03/2022 SOB (shortness of breath) 04/02/2022 Peripheral nerve disease 02/28/2022 Chest pain 02/28/2022 Overview (04/08/2024): Last Assessment & Plan: She had atypical chest pain frequently. Despite obstructive coronary artery disease, the chest pain does not suggest angina. The pain was constant, lasted for hours without dynamic cardiac enzyme elevation. Discussed with her and her daughter the other potential etiologies of chest pain such as mild congestive heart failure, so she was pulmonary congestion, muscle skeletal discomfort as well. At this point, I will increase Bumex to 1-1/2 mg in the morning and continue 1 mg in the afternoon. She and her daughter can adjust Bumex dosage based on her weight and symptoms at home. We will repeat BMP early next week. Hypercoagulable state, primary ([facility] V24) 11/2021 Low back pain 02/28/2022 S/P CABG x 2 02/28/2022 Overview (04/08/2024): Done at [facility] on 02/12/22 with Ryan Black - indications: CAD, Angina Class 2 obesity 02/28/2022 CHF (congestive heart failure) ([facility] V24, [facility] V28) 09/18/2021 Overview (04/08/2024): Last Assessment & Plan: She does not have a lower extremity edema anymore. Her major presentation appears to be increased abdominal girth and weight gain. Assessment & Plan (11/01/2024 5:18 PM EDT): She is euvolemic by physical exam. She is on furosemide 40 mg twice a day. CardioMEMS will be helpful to monitor her volume status given her difficult body habitus and multiple other comorbidities. She will have another echocardiogram in [facility] and we will get a copy of the report. Ischemia 05/29/2021 Nonrheumatic aortic valve stenosis 05/09/2020 Overview (04/08/2024): TAVR March 2020 Normally functioning valve on echocardiogram April 2020 Last Assessment & Plan: Valve function remains normal. Continue endocarditis prophylaxis. Assessment & Plan (11/01/2024 5:18 PM EDT): Valve function is normal by physical exam. Will continue endocarditis prophylaxis and monitor the valve structure and function by echocardiogram. Cataract 06/03/2018 Overview (04/08/2024): S/p surgery Type 2 diabetes mellitus wit h cataract ([facility] V24, [facility] V28) 06/03/2018 Overview (04/08/2024): Last Assessment & Plan: Suggest her to discuss further with her endocrinology team about jardiance CAD (coronary artery disease) 12/08/2017 Overview (04/08/2024): Pre-TAVR cath January 2020 PCI to the RCA, distal LAD managed medically S/p CABG x 2 (DELGADO-LAD and SVG-OM1) 01/2022 Last Assessment & Plan: Unfortunately, she had a rapid progression of yurok disease or early venous graft closure. She is on pravastatin 80 mg daily and LDL level was not very high. She could not tolerate high-dose statin. We had a discussion about initiation of PCSK9 inhibitor to slow down the progression of the disease during previous office visit and she agreed to to give a try. I have sent a prescription to pharmacy. Assessment & Plan (11/01/2024 5:18 PM EDT): Has been more or less stable lately. She has been on nitrate, Plavix, and beta-emerson. Eventually, she is able to tolerate PCSK9 inhibitor injection. I will update lipid profile. Orders: Lipid panel with reflex to direct LDL; Future AST; Future ALT; Future Recurrent UTI 06/03/2017 Overview (04/08/2024): On chronic antibx therapy Gastroparesis 04/11/2017 Diabetes mellitus type 2 wit h neurological manifestations ([facility] V24, [facility] V28) 04/11/2017 Allergic rhinitis 03/17/2017 Asthma 03/17/2017 DM (diabetes mellitus), type 2 with peripheral vascular complications ([facility] V24, [facility] V28) 02/27/2017 Gastroesophageal reflux disease 02/27/2017 Primary hypertension 02/27/2017 Overview (04/08/2024): Last Assessment & Plan: Blood pressure under excellent control today. Continue current medications including beta-emerson and lisinopril. We will recheck BMP to be sure her sodium is stable off diuretic therapy in the setting of known mild hyponatremia. Mixed hyperlipidemia 02/27/2017 Overview (04/08/2024): Last Assessment & Plan: Well-controlled lipid profile last check in September 2020 on statin and Zetia. Continue current treatment plan. Osteoporosis 02/27/2017 Overview (04/08/2024): Multiple compression/path fractures Diabetic neuropathy ([facility] V24, [facility] V28) 0 09/09/2016 Pulmonary emphysema ([facility] V24, [facility] V28) 1 06/29/2015 PAD (peripheral artery disease) ([facility] V24) Overview (04/08/2024): Last Assessment & Plan: Defer to vascular team. Assessment & Plan (11/01/2024 5:18 PM EDT): Followed by vascular team. Pathological fracture of vertebra 01/02/2015 Vitamin D deficiency 06/05/2014 Peptic ulcer 01/19/2014 Overview (04/08/2024): Comments: pos H. pylori (Dr Elizalde) Encounters Date Type Department Care Team Description 04/18/2025 Telephone Pulmonology - [place] [address] [facility] [address] [place] [phone] Shanell Dominguez MD 04/07/2025 3:34 AM EST - 04/07/2025 7:48 AM EST Emergency [facility] Emergency [address] [place] [phone] Lawrence Carranza MD Right leg pain (Primary Dx); Sciatica of right side Discharge Disposition: Home or Self Care 03/27/2025 11:30 AM EST Office Visit Pulmonology - [place] [address] [facility] [address] [place] [phone] Shanell Dominguez MD Congestive heart failure, unspecified HF chronicity, unspecified heart failure type (CMS/HCC V24, CMS/HCC V28) (Primary Dx) 03/20/2025 9:47 AM EDT - 03/20/2025 11:59 PM EDT Hospital Encounter [facility] Bone Density [address] [place] [phone] Age-related osteoporosis without current pathological fracture Discharge Disposition: Home or Self Care 02/21/2025 Telephone [facility] - [facility] [address] [facility] [address] [place] [phone] Tova Baldwin MD from Last 3 Months Immunizations Immunization Administration Dates Next Due Influenza trivalent, 0.5mL, preservative free (Fluarix; FluLaval; Fluzone) ages 6mo and older (Afluria) 3 years and older 02/13/2016,02/27/2015,02/20/2014,03/07,03/19/2009 Influenza trivalent, with pr eservative (Fluzone; Afluria) 6mo and older 02/22/2013 Pneumococcal conjugate 13 va lent (Prevnar 13, PCV13) 2mo and older 02/27/2017 Pneumococcal polysaccharide 23 valent (Pneumovax 23) 2yo and older 10/05/2012 Tdap Tetanus diptheria acell ular pertussis (Boostrix; Adacel) 7yo and older 08/27/2012,01/06/2012 Zoster Live 03/22/2013 Surgical History Surgery Date Site/Laterality Comments CARDIAC CATHETERIZATION 2016 PROCEDURE: HISTORICAL CARDIAC CATH SINUS SURGERY 04/1992 PROCEDURE: MD UNLISTED PROCEDURE ACCESSORY SINUSES; COMMENT: and previously 03/1981 CATARACT EXTRACTION 09/2015 Left PROCEDURE: HISTORICAL CATARACT REMOVAL CATARACT EXTRACTION 10/2015 Right PROCEDURE: HISTORICAL CATARACT REMOVAL TUBAL LIGATION 1978 PROCEDURE: HISTORICAL TUBAL LIGATION ANGIOPLASTY 1998 PROCEDURE: HISTORICAL ANGIOPLASTY OTHER SURGICAL HISTORY 1997 PROCEDURE: HISTORICAL AOROTFEMORAL BYPASS; COMMENT: R leg SHOULDER SURGERY PROCEDURE: HISTORICAL SHOULDER SURGERY OTHER SURGICAL HISTORY 11/05/2021 PROCEDURE: MD REVSC OPN/PRQ FEM/POP W/STNT/ATHRC/ANGIOP SM VSL OTHER SURGICAL HISTORY 11/05/2021 PROCEDURE: ULTRASOUND GUIDANCE FOR VASCULAR AC OTHER SURGICAL HISTORY PROCEDURE: MD BYP OTH/THN VEIN AORTOILIAC; COMMENT: Bypass Graft Using Vein: Femoral-popliteal OTHER SURGICAL HISTORY PROCEDURE: MD UNLISTED PROCEDURE CARDIAC SURGERY SINUS SURGERY PROCEDURE: MD UNLISTED PROCEDURE ACCESSORY SINUSES OTHER SURGICAL HISTORY 02/12/2022 PROCEDURE: CABG MIN INV 2 ARTERL GRFT OTHER SURGICAL HISTORY 03/19/2020 PROCEDURE: MD REPLACE AORTIC VALVE PERQ FEMORAL ARTRY APPROACH OTHER SURGICAL HISTORY PROCEDURE: MD ANES NOSE & ACCESSORY SINUSES RADICAL SURGERY Medical History Medical History Date Comments Allergic rhinitis 03/17/2017 DX:Allergic rh initis Asthma 03/17/2017 DX:Asthma Diabetes mellitus type 2 wit h neurological manifestations ([facility] V24, [facility] V28) 04/11/2017 DX:Diabetes mellitus type 2 with neurological manifestations (HCC) Diabetic neuropathy ([facility] V24, [facility] V28) 09/09/2016 DX:Diabetic neuropathy (HCC) DM (diabetes mellitus), type 2 with peripheral vascular complications ([facility] V24, [facility] V28) 02/27/2017 DX:DM (diabetes mellitus), type 2 with peripheral vascular complications (HCC) Gastroesophageal reflux disease 02/27/2017 DX:Gastroesophageal reflux disease Gastroparesis 04/11/2017 DX:Gastroparesis History of colonic diverticulitis 12/01/2012 DX:History of colonic diverticulitis Hyperlipidemia 02/27/2017 DX:Hyperlipidemi a Hypertension 02/27/2017 DX:Hypertension Osteoporosis 02/27/2017 DX:Osteoporosis; COMMENT: Multiple compression/path fractures Pathological fracture of vertebra 01/02/2015 DX:Pathological fracture of vertebra Peptic ulcer 01/19/2014 DX:Peptic ulcer; COMMENT: Comments: pos H. pylori (Dr Elizalde) Peripheral vascular disease ([facility] V24) 04/28/2016 DX:Peripheral vascular disea se ([facility]) Pulmonary emphysema ([facility] V24, [facility] V28) 04/28/2016 DX:Pulmonary emphysema ([facility]) Recurrent UTI 06/03/2017 DX:Recurrent UTI ; COMMENT: On chronic antibx therapy Vitamin D deficiency 06/05/2014 DX:Vitamin D deficiency Morbid obesity with BMI of 4 0.0-44.9, adult ([facility] V24, [facility] V28) 09/08/2017 DX:Morbid obesity wit h BMI of 40.0-44.9, adult ([facility]) CAD (coronary artery disease) 12/08/2017 DX :CAD (coronary artery disease) Cataract 06/03/2018 DX:Cataract; COM MENT: S/p surgery Type 2 diabetes mellitus wit h cataract ([facility] V24, [facility] V28) 06/03/2018 DX:Type 2 diabetes mellitus with cataract ([facility]) (aortic stenosis) 05/09/2020 DX: (aort ic stenosis) Acute gastric ulcer without hemorrhage or perforation and without obstruction DX:Acute gastri c ulcer without hemorrhage or perforation and without obstruction Anemia DX:Anemia Chronic hyponatremia DX:Chronic hyponatremia Chronic obstructive lung dis ease ([facility] V24, [facility] V28) DX:Chronic obstructive lung disease ([facility]) Chronic sinusitis DX:Chronic sin usitis Earache DX:Earache Hypomagnesemia DX:Hypomagnesemi a Hyponatremia DX:Hyponatremia Leukocytosis DX:Leukocytosis Obstructive sleep apnea syndrome DX:Obstructive sleep apnea syndrome Senile osteoporosis DX:Senile os teoporosis Venous retinal branch occlus ion ([facility] V28) DX:Venous retinal branch occ lusion Anxiety and depression 02/28/2022 DX:Anxiet y and depression Sinusitis DX:Sinusitis Pleural effusion DX:Pleural effu elías Low back pain DX:Low back pain Class 2 obesity DX:Class 2 obesi ty Peripheral nerve disease DX:Vesna pheral nerve disease Viral syndrome DX:Viral syndrom e COPD (chronic obstructive pu lmonary disease) ([facility] V24, [facility] V28) Family History Medical History Relation Name Comments Hypertension Father CAD Hypertension Mother Relation Name Status Comments Father Mother Social History Tobacco Use Types Packs/Day Years Used Date Smoking Tobacco: Never Smokeless Tobacco: Never Tobacco Cessation:Counseling Given: Not Answered Alcohol Use Standard Drinks/Week Comments Never 0 (1 standard drink = 0.6 oz pur e alcohol) Housing Instability Answer Date Recorde d Are you worried that in the next 2 months you may not have stable housing? No 10/20/2024 Food Access & Nutrition Answer Date Rec orded Do you have access to a vari ety of food including fruits and vegetables? Yes 10/20/2024 Access to Healthcare Answer Date Record ed Within the last 3 months, ho w many times did you visit the emergency department for your medical care? 5 10/20/2024 Health Literacy Answer Date Recorded How often do you need to hav e someone help you when you read instructions, pamphlets, or other written material from your doctor or pharmacy? Never 10/20/2024 Caregiver: How often do you need to have someone help you when you read instructions, pamphlets, or other written material from your doctor or pharmacy? Not on file 10/20/2024 Financial Risk Answer Date Recorded How hard is it for you to pa y for the very basics like food, housing, medical care, and air conditioning / heating? Not very hard 10/20/2024 Transportation Answer Date Recorded Has the lack of transportati on kept you from meetings, work, or from getting things needed for daily living? No Has the lack of transportati on kept you from medical appointments or from getting medications? No 10/20/2024 Social Isolation Answer Date Recorded How often do you feel lonely or isolated from th ose around you? Never 10/20/2024 Food Risk Answer Date Recorded Within the past 12 months we worried whether our food would run out before we got money to buy more. Never true 10/20/2024 Within the past 12 months th e food we bought just didn't last and we didn't have money to get more. Never true 10/20/2024 Dependent Care Answer Date Recorded Do you need help finding or paying for care for your loved ones. For example, childcare director or elderly care for an older adult? No 10/20/2024 Education Answer Date Recorded Do you think completing more education or training, like finishing a GED, going to college, or learning a trade, would be helpful for you? N/A 10/20/2024 Employment and Income Answer Date Recor ded During the last four weeks, have you been actively looking for work? No 10/20/2024 Living Situation Answer Date Recorded What is your living situation? Unrecognized valu e 10/20/2024 Interpersonal Safety Answer Date Record ed Physical Abuse Unrecognized value 10/20/2024 Verbal Abuse Unrecognized value 10/20/2024 Comments No Sex and Gender Information Value Date Recorded Sex Assigned at Female 10/09/2024 2:21 PM EDT Legal Sex Female 8:37 AM EST Gender Identity Female 10/09/2024 2:21 PM EDT Sexual Orientation Straight 10/09/2024 2: 21 PM EDT Obstetrics History Last Filed Vital Signs Vital Sign Reading Time Taken Comments Blood Pressure 143/60 04/07/2025 4:28 AM EST Pulse 85 04/07/2025 4:28 AM EST Temperature 36.5 C (97.7 F) 04/07/2025 4:28 AM EST Respiratory Rate 16 04/07/2025 4:28 AM EST Oxygen Saturation 96% 04/07/2025 4:28 AM EST Inhaled Oxygen Concentration - - Weight 75.3 kg (166 lb) 04/07/2025 1:27 AM EST Height 134.6 cm (4' 5 ) 04/07/2025 1:27 AM EST Body Mass Index 41.55 04/07/2025 1:27 AM EST Plan of Treatment Upcoming Encounters Date Type Department Care Team (Late st Contact Info) Description 06/09/2025 1:00 PM EST Appointment [facility] Ultrasound [address] [place] [address] 06/14/2025 1:00 PM EST Appointment [facility] Ultrasound [address] [place] [address] 07/14/2025 8:40 AM EST Office Visit [facility] - [address] [place] [phone] Merry Galaviz, DEBORAH [address] [place] [phone] 09/25/2025 2:40 PM EDT Office Visit Gastroenterology - [address] [facility] [address] [place] [phone] Felicita Gamble PA [address] [facility] [address] [place] [address] 10/02/2025 2:00 PM EDT Office Visit Pulmonology - [place] [address] [facility] [address] [place] [phone] Shanell Dominguez MD [address] [place] [phone] 01/24/2026 11:30 AM EDT Office Visit [facility] - [place] [address] [facility] [address] [place] [phone] Arlette Meyer MD [address] [place] [phone] Health Maintenance Due Date Last Done Comments Breast Cancer Screening 1950 Colorectal Cancer Screening: Colonoscopy 1950 Diabetes: Annual Foot Exam 1962 Diabetes: Annual Retina Eye Exam 1962 Zoster Vaccines (2 of 3) 05/17/2013 03/22/2013 Cholesterol Screening (Lipid Panel) 05/03/2022 Hepatitis C Screening 05/03/2022 Medicare Annual Wellness Visit 05/03/2022 Diabetes: Annual Urine Albumin-Creatinine Ratio (uACR) 05/10/2022 Diabetes: Blood Sugar Control Test (HGBA1C) 05/10/2022 Depression Screening 05/25/2024 COVID-19 Vaccine ( season) 2025 04/09/2024, 04/05/2023, 04/20/2022, Additional history exists Social Influencers of Health Screening 10/20/2025 10/20/2024 Falls Risk Assessment 10/21/2025 10/21/2024 Diabetes: Annual GFR (Glomerular Filtration Rate) 01/13/2026 01/13/2025, 01/12/2025, 12/10/2024, Additional history exists Hypertension/CHF/CAD Annual BMP Blood Test 01/13/2026 01/13/2025, 01/12/2025, 12/10/2024, Additional history exists DTaP,Tdap,and Td Vaccines (4 - Td or Tdap) 05/22/2034 05/22/2024, 08/27/2012, 08/27/2012, Additional history exists Osteoporosis Screening (Bone Density Screening) 03/20/2035 03/20/2025, 03/18/2023, 01/24/2020, Additional history exists RSV Immunization Adult Patients Completed 06/08/2023 Pneumococcal Vaccine: 50+ Years Completed 06/11/2024, 03/17/2023, 02/27/2017, Additional history exists Influenza Vaccine Completed 02/25/2025, , 04/02/2022, Additional history exists HIB Vaccines Aged Out No longer eligi ble based on patient's age to complete this topic HPV Vaccines Aged Out No longer eligi ble based on patient's age to complete this topic Hepatitis A Vaccines Aged Out No long er eligible based on patient's age to complete this topic Hepatitis B Vaccines Aged Out No long er eligible based on patient's age to complete this topic IPV Vaccines Aged Out No longer eligi ble based on patient's age to complete this topic MMR Vaccines Aged Out No longer eligi ble based on patient's age to complete this topic Meningococcal ACWY Vaccine Aged Out N o longer eligible based on patient's age to complete this topic Meningococcal B Vaccine Aged Out No l onger eligible based on patient's age to complete this topic RSV Immunization Patients Under 20 months Aged Out No longer eligible based on patient's age to complete this topic Varicella Vaccines Aged Out No longer eligible based on patient's age to complete this topic Medical Devices Implanted Type Area Cutting Machine Operator Device Identifier Shelf Expiration Date Model / Serial / Lot Hemostat Absorb 1x2 Surgicel Fibrillar - Sn/A - [id number] Implanted:Qty: 1 on 10/20/2024 by Edmond Herrera MD at [facility] Hemostasis Left: Neck [employer] 02/21/20261960 / N/A / [id number] Sealant Fibrin Vistaseal 2ml - [id number] - [id number] Implanted:Qty: 1 on 10/20/2024 by Edmond Herrera MD at [facility] Hemostasis Left: Neck [employer] 07/03/2026 [id number] / [id number] / [id number] Shunt Carotid Sundt Int 3x4mm - Sn/A - [id number] Implanted:Qty: 1 on 10/20/2024 by Edmond Herrera MD at [facility] Shunts Left: Neck [employer] 02/21/2029 [id number] / N/A / [id number] Patch Biol Xenosure .8x8cm - Sn/A - [id number] Implanted:Qty: 1 on 10/20/2024 by Edmond Herrera MD at [facility] Vascular Grafts Left: Neck [employer] 04/21/2030 E0.8P8 / N/A / [id number] Procedures Procedure Name Priority Date/Time Associated Diagnosis Comments XR PELVIS 1-2 VIEWS STAT 04/07/2025 6:24 AM EST VAS US DUPLEX LOWER EXT VENOUS RIGHT STAT 04/07/2025 3:22 AM EST Right leg pain BD BONE DENSITY DXA AXIAL SKELETON Routine 03/20/2025 10:26 AM EDT Age-related osteoporosis without current pathological fracture BASIC METABOLIC PANEL Routine 01/13/2025 4:24 AM EDT from Last 3 Months or Most Recently Relevant to Health Maintenance Results * XR Pelvis 1-2 Views (04/07/2025 6:24 AM EST) Anatomical Region Laterality Modality Body, Pelvis Radiographic Katia ging 04/07/2025 10:3 0 AM EST Impressions 04/07/2025 10:33 AM EST FINDINGS/IMPRESSION: No acute fracture or dislocation. Unchanged old healed fracture deformities at the right superior and inferior pubic ramus. Prior lumbar vertebral augmentations are noted. Sacrum is obscured by overlying bowel gas. Surgical clips are present in the right inguinal region. No focal soft tissue swelling. -------- FINAL REPORT -------- Dictated By: REYNOLD LIMON Dictated Date: 04/07/2025 10:30 ET Assigned Physician: REYNOLD LIMON Reviewed and Electronically Signed By: REYNOLD LIMON Signed Date: 04/07/2025 10:33 ET Workstation ID: [id number] Transcribed By: Self Edit Transcribed Date: 04/07/2025 10:30 ET Narrative 04/07/2025 10:33 AM EST XR PELVIS 1-2 VIEWS INDICATION: Pain TECHNIQUE: XR PELVIS 1-2 VIEWS COMPARISON: CT 01/18/2023 Procedure Note Reynold Limon MD - 04/07/2025 XR PELVIS 1-2 VIEWS INDICATION: Pain TECHNIQUE: XR PELVIS 1-2 VIEWS COMPARISON: CT 01/18/2023 IMPRESSION: FINDINGS/IMPRESSION: No acute fracture or dislocation. Unchanged oldhealed fracture deformities at the right superior and inferior pubicramus. Prior lumbar vertebral augmentations are noted. Sacrum isobscured by overlying bowel gas. Surgical clips are present in the rightinguinal region. No focal soft tissue swelling. -------- FINAL REPORT -------- Dictated By: REYNOLD LIMON Dictated Date: 04/07/2025 10:30 ET Assigned Physician: REYNOLD LIMON Reviewed and Electronically Signed By: REYNOLD LIMON Signed Date: 04/07/2025 10:33 ET Workstation ID: [id number] Transcribed By: Self Edit Transcribed Date: 04/07/2025 10:30 ET us Lawrence Carranza MD IMG XR PROCEDURES Final Res ult * Vascular US Duplex Lower Extremity Venous Right (04/07/2025 3:22 AM EST) Anatomical Region Laterality Modality Vascular, Abdomen Ultrasound 04/07/2025 5:05 AM EST Impressions 04/07/2025 5:05 AM EST 1. Negative for right lower extremity deep vein thrombosis. This document has been electronically signed by: Nicole Montanez MD on 04/07/2025 05:05:24 Narrative 04/07/2025 5:05 AM EST INDICATION: edema Venous duplex ultrasound right lower extremity Comparison: None provided Findings: The visualized deep veins are fully compressible with normal Doppler color flow and spectral tracings. Procedure Note Nicole Montanez MD - 04/07/2025 INDICATION: edema Venous duplex ultrasound right lower extremity Comparison: None provided Findings: The visualized deep veins are fully compressible with normal Dopplercolor flow and spectral tracings. IMPRESSION: 1. Negative for right lower extremity deep vein thrombosis. This document has been electronically signed by: Nicole Montanez MD on 04/07/2025 05:05:24 us Cameron RAMIREZ CV VASCULAR PROCEDURES Olamide l Result * BD Bone Density DXA Axial Skeleton (03/20/2025 10:26 AM EDT) Anatomical Region Laterality Modality Wrist, Hip, L-spine Bone Densito metry 03/20/2025 10:2 8 AM EDT Impressions 03/20/2025 10:33 AM EDT 1. Osteoporosis. There has been a decrease of 6.8% in bone mineral density in the lumbar spine since the prior examination of 03/18/2023. There has been no change in bone mineral density in the right femur and an increase of 3.9% in bone mineral density in the left femur. 2. FRAX analysis yields a 10-year probability of major osteoporotic fracture of 33.0% and a 10-year probability of hip fracture of 10.4%. Code 68640 -------- FINAL REPORT -------- Dictated By: Claude Gomez Dictated Date: 03/20/2025 10:28 ET Assigned Physician: Claude Gomez Reviewed and Electronically Signed By: Claude Goemz Signed Date: 03/20/2025 10:33 ET Workstation ID: [id number] Transcribed By: Self Edit Transcribed Date: 03/20/2025 10:30 ET Narrative 03/20/2025 10:33 AM EDT HISTORY: The patient is a 74-year-old postmenopausal female on chronic glucocorticoid therapy, with clinical concern for metabolic bone disease. FINDINGS: Dual energy x-ray absorptiometry of the lumbar spine and femurs is performed. The mean bone mineral density at L1-L4 is 1.187 gm/cm2 which is 101% of that of young normals and 116% of that of age matched controls. This yields a T-score of 0.1 and a Z-score of 1.4 and there is therefore no evidence of osteoporosis or osteopenia here. The mean bone mineral density of the femurs bilaterally is 0.765 gm/cm2 which is 76% of that of young normals and 91% of that of age matched controls. This yields a T-score of -1.9 and a Z-score of -0.6 which is diagnostic of osteopenia. However, the T-score of the right femoral neck is -2.6 which is diagnostic of osteoporosis. Procedure Note Claude Gomez MD - 03/20/2025 HISTORY: The patient is a 74-year-old postmenopausal female on chronicglucocorticoid therapy, with clinical concern for metabolic bonedisease. FINDINGS: Dual energy x-ray absorptiometry of the lumbar spine and femursis performed. The mean bone mineral density at L1-L4 is 1.187 gm/cm2 whichis 101% of that of young normals and 116% of that of age matched controls.This yields a T- score of 0.1 and a Z-score of 1.4 and there is thereforeno evidence of osteoporosis or osteopenia here. The mean bone mineral density of the femurs bilaterally is 0.765 gm/tu0ogjvm is 76% of that of young normals and 91% of that of age matchedcontrols. This yields a T-score of -1.9 and a Z-score of -0.6 which isdiagnostic of osteopenia. However, the T-score of the right femoral neckis -2.6 which is diagnostic of osteoporosis. IMPRESSION: 1. Osteoporosis. There has been a decrease of 6.8% in bone mineraldensity in the lumbar spine since the prior examination of 03/18/2023.There has been no change in bone mineral density in the right femur and anincrease of 3.9% in bone mineral density in the left femur. 2. FRAX analysis yields a 10-year probability of major osteoporoticfracture of 33.0% and a 10-year probability of hip fracture of 10.4%. Code 07255 -------- FINAL REPORT -------- Dictated By: Claude Gomez Dictated Date: 03/20/2025 10:28 ET Assigned Physician: Claude Gomez Reviewed and Electronically Signed By: Claude Gomez Signed Date: 03/20/2025 10:33 ET Workstation ID: [id number] Transcribed By: Self Edit Transcribed Date: 03/20/2025 10:30 ET us SteveRosaura Odom MD IM DXA PROCEDURES Final Result * (ABNORMAL) Basic metabolic panel (01/13/2025 4:24 AM EDT) Sodium 137 133 - 145 mmol/L LAB CHEMISTRY METHOD 01/13/2025 4:58 AM [facility] Potassium 3.8 3.5 - 5.5 mmol/L LAB CHEMISTRY METHOD 01/13/2025 4:58 AM [facility] Chloride 104 96 - 110 mmol/L LAB CHEMISTRY METHOD 01/13/2025 4:58 AM [facility] CO2 30 21 - 32 mmol/L LAB CHEMISTRY METHOD 01/13/2025 4:58 AM [facility] Anion Gap 3 3 - 11 LAB CHEMISTRY METHOD 01/13/2025 4:58 AM [facility] Glucose 197(H) 70 - 100 mg/dL LAB CHEMISTRY METHOD 01/13/2025 4:58 AM [facility] BUN 19 5 - 25 mg/dL LAB CHEMISTRY METHOD 01/13/2025 4:58 AM [facility] Creatinine 0.69 0.50 - 1.10 mg/dL LAB CHEMISTRY METHOD 01/13/2025 4:58 AM [facility] eGFR 92 >=60 mL/min/1. 73m2 LAB CHEMISTRY METHOD 01/13/2025 4:58 AM [facility] Comment:Calculation based on the Chronic Kidney Disease Epidemiology Collaboration (CKD-EPI) equation refit without adjustment for race. BUN/Creatinine Ratio 27.5 LAB CHEMISTRY METHOD 01/13/2025 4:58 AM EDT [facility] Calcium 9.2 8.5 - 10.5 mg/dL LAB CHEMISTRY METHOD 01/13/2025 4:58 AM EDT [facility] Blood Venous blood specimen / Unknown Venipuncture / Unknown 01/13/2025 4:24 AM EDT 01/13/2025 4:29 AM EDT us Elpidio Moses MD LAB BLOOD ORDERABLES Final Result [facility] [address] [place] [address], from Last 3 Months or Most Recently Relevant to Health Maintenance Insurance MEDICARE [facility] MEDICAID - [place] Advance Directives Documents on File Type Date Recorded Patient 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 Expl anation Health Care Decision (hx) 03/10/2013 AD BOOKER DIRECTIVE Health Care Decision (hx) 03/10/2013 AD BOOKER DIRECTIVE Health Care Decision (hx) 03/10/2013 AD BOOKER DIRECTIVE Health Care Decision (hx) 03/10/2013 AD BOOKER DIRECTIVE Health Care Decision (hx) 03/10/2013 AD BOOKER DIRECTIVE Health Care Decision (hx) 03/10/2013 AD BOOKER DIRECTIVE Health Care Decision (hx) 03/10/2013 AD BOOKER DIRECTIVE Health Care Decision (hx) 03/10/2013 AD BOOKER DIRECTIVE Health Care Decision (hx) 03/10/2013 AD BOOKER DIRECTIVE Health Care Decision (hx) 03/10/2013 AD BOOKER DIRECTIVE Health Care Decision (hx) 03/10/2013 AD BOOKER DIRECTIVE Health Care Decision (hx) 03/10/2013 AD BOOKER DIRECTIVE Health Care Decision (hx) 03/10/2013 AD BOOKER DIRECTIVE Health Care Decision (hx) 03/10/2013 AD BOOKER DIRECTIVE Health Care Decision (hx) 03/10/2013 AD BOOKER DIRECTIVE Health Care Decision (hx) 03/10/2013 AD BOOKER DIRECTIVE Health Care Decision (hx) 03/10/2013 AD BOOKER DIRECTIVE Health Care Decision (hx) 03/10/2013 AD BOOKER DIRECTIVE Health Care Decision (hx) 03/10/2013 AD BOOKER DIRECTIVE Health Care Decision (hx) 03/10/2013 AD BOOKER DIRECTIVE Health Care Decision (hx) 03/10/2013 AD BOOKER DIRECTIVE Health Care Decision (hx) 03/10/2013 AD BOOKER DIRECTIVE Health Care Decision (hx) 03/10/2013 AD BOOKER DIRECTIVE Health Care Decision (hx) 03/10/2013 AD BOOKER DIRECTIVE Health Care Decision (hx) 03/10/2013 AD BOOKER DIRECTIVE Health Care Decision (hx) 03/10/2013 AD BOOKER DIRECTIVE Health Care Decision (hx) 03/10/2013 AD BOOKER DIRECTIVE Health Care Decision (hx) 03/10/2013 AD BOOKER DIRECTIVE Health Care Decision (hx) 03/10/2013 AD BOOKER DIRECTIVE Health Care Decision (hx) 03/10/2013 AD BOOKER DIRECTIVE Health Care Decision (hx) 03/10/2013 AD BOOKER DIRECTIVE Health Care Decision (hx) 03/10/2013 AD BOOKER DIRECTIVE Health Care Decision (hx) 03/10/2013 AD BOOKER DIRECTIVE Health Care Decision (hx) 03/10/2013 AD BOOKER DIRECTIVE Health Care Decision (hx) 03/10/2013 AD BOOKER DIRECTIVE Health Care Decision (hx) 03/10/2013 AD BOOKER DIRECTIVE Health Care Decision (hx) 03/10/2013 AD BOOKER DIRECTIVE Health Care Decision (hx) 03/10/2013 AD BOOKER DIRECTIVE Health Care Decision (hx) 03/10/2013 AD BOOKER DIRECTIVE Health Care Decision (hx) 03/10/2013 AD BOOKER DIRECTIVE Health Care Decision (hx) 03/10/2013 AD BOOKER DIRECTIVE Health Care Decision (hx) 03/10/2013 AD BOOKER DIRECTIVE Health Care Decision (hx) 03/10/2013 AD BOOKER DIRECTIVE Health Care Decision (hx) 03/10/2013 AD BOOKER DIRECTIVE Health Care Decision (hx) 03/10/2013 AD BOOKER DIRECTIVE Health Care Decision (hx) 03/10/2013 AD BOOKER DIRECTIVE Health Care Decision (hx) 03/10/2013 AD BOOKER DIRECTIVE Health Care Decision (hx) 03/10/2013 AD BOOKER DIRECTIVE Health Care Decision (hx) 03/10/2013 AD BOOKER DIRECTIVE * Full Code - Default (Latest Code Status on File) Date Activated Date Inactivated Comments 01/12/2025 9:21 PM 01/13/2025 12:43 PM This is ord er is used when code status has not been discussed with the patient, or code status is otherwise unknown/unconfirmed To update the patient's code status, place a code status order. Do not modify or discontinue any currently active code status orders. * Full Code - Default Date Activated Date Inactivated Comments 10/20/2024 10:53 AM 10/21/2024 6:39 PM This is ord er is used when code status has not been discussed with the patient, or code status is otherwise unknown/unconfirmed To update the patient's code status, place a code status order. Do not modify or discontinue any currently active code status orders. * Full Code - Default Date Activated Date Inactivated Comments 10/20/2024 6:35 AM 10/20/2024 10:53 AM This is ord er is used when code status has not been discussed with the patient, or code status is otherwise unknown/unconfirmed To update the patient's code status, place a code status order. Do not modify or discontinue any currently active code status orders. * Full Code - Default Date Activated Date Inactivated Comments 10/09/2024 11:02 PM 10/11/2024 7:28 PM This is ord er is used when code status has not been discussed with the patient, or code status is otherwise unknown/unconfirmed To update the patient's code status, place a code status order. Do not modify or discontinue any currently active code status orders. Care Teams Fudger Relationship Specialty Start Date End Date Miriam Cole MD [address] [place] [address] PCP - General Internal Medicine 04/26/24
--- OUTSIDE RECORDS SUMMARY | 2025-04-27 11:52 | XMS_ITS | Patient Health Record ---
[facility] Address [address] [place] [address] Care Team Providers Care Head Banquet Waitress Name Role Phone Kelsey COOK, Miriam Primary Care Provider Beau Martinez Unavailable [phone] Allergies Allergen (clinical drug ingredient) Drug/Non Drug Allergy documented on EMR Reaction Allergy Type Onset Date Status ibuprofen Advil Unknown Drug Allergy Active Aleve Unknown Drug Allergy Active moxifloxacin Avelox rash, itching, lowered blood pressure Drug Allergy Active azithromycin Azithromycin Unknown Drug Allergy A ctive ciprofloxacin Cipro Unknown Drug Allergy Act lia alendronate Fosamax Unknown Drug Allergy Activ e Keflex Unknown Drug Allergy Active Levaquin Unknown Drug Allergy Active Motrin Unknown Drug Allergy Active nitroglycerin Nitroglycerin fainting Drug Allergy Active diltiazem Diltiazem HCl ER Unknown Drug Allergy Active Adhesive Unknown Allergy Active aspirin Aspirin Unknown Drug Allergy Active erythromycin Erythromycin shortness of breath Drug Allergy Active Penicillin Unknown Drug Allergy Active Results Component Value Reference Range Notes HEMOGLOBIN A1C (GLYCOHEMOGLO BIN) Reviewed date:07/04/2024 02:29:52 PM Interpretation: Performing Lab: Notes/Report: HEMOGLOBIN A1C % (HH) 7.5 HEMOGLOBIN A1C (GLYCOHEMOGLO BIN) Reviewed date:10/03/2024 03:12:58 PM Interpretation: Performing Lab: Notes/Report: HEMOGLOBIN A1C % (HH) 7.5 HEMOGLOBIN A1C (GLYCOHEMOGLO BIN) Reviewed date:02/13/2025 09:37:36 AM Interpretation: Performing Lab: Notes/Report: HEMOGLOBIN A1C % (HH) 7.5 HEMOGLOBIN A1C (GLYCOHEMOGLO BIN) Reviewed date:01/02/2025 03:06:14 PM Interpretation: Performing Lab: Notes/Report: HEMOGLOBIN A1C % (HH) 7.5 Reason For Referral No Information Medications Medication SIG (Take, Route, Frequency, Duration) Notes Start Date End Date Status Macrodantin 50 mg twice daily Active Magnesium Active Ranitidine Acid Production Line Worker 300 mg as directed Orally Active Lantus 20 units Acti ve PriLOSEC 20 mg Activ e Isosorbide Mononitrate 120MG Active Claritin Active Glucophage 500 mg 4 daily Ac tive amLODIPine Besylate Active Flonase Active Aspirin 81 MG 1 tablet Orally Once a day Active Furosemide 40 MG Oral; Duration: 90 Active amLODIPine Besylate 5 MG 1 tablet Orally Once a day; Duration: 30 day(s) Active Diabeta 5 mg 4 daily Active Lisinopril Active Clopidogrel Bisulfate 75 MG 1 tablet Orally Once a day Active Lasix Active DAPTOmycin 350 MG as directed Intravenous intravenous Active Bumex Active Metoprolol Succinate 100 MG 1 capsule Orally Once a day Active Bactrim DS 800-160 MG 1 tablet Orally ev matt 12 hrs; Duration: 10 day(s) 02/13/2025 Active Extra Depth Orthopedic Shoes (1 Pair) with Customized Heat Molded Multidensity Innersoles (3 Pair) as directed Dx: 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), Hammertoe Foot Deformity (M20.41,M20.42), Preulcerative Skin Lesion(s) (L85.1) 07/04/2024 Active Zetia 10 mg Active Xarelto 2.5 MG 1 tablet Orally Twic e a day Active Singulair 10 mg Acti ve Reglan 5 mg twice daily Active Pravachol 40 mg Acti ve Potassium Active Pantoprazole Sodium 20 MG Oral; Duration: 90 Active Praluent 75 MG/ML as directed every 4 days Active Nitroglycerin prn Active Clopidogrel Bisulfate 75 MG Oral; Duration: 90 Active Amitriptyline HCl 10 mg Active Advair Diskus 250/50 twice daily Active Immunizations Vaccine Route Administration Date Status Comme nts Influenza Unknown 02/27/2015 Administered Influenza Unknown 02/13/2016 Administered Influenza Unknown 02/20/2017 Administered Influenza Unknown 02/20/2018 Administered Influenza Unknown 03/01/2020 Administered Influenza Unknown 01/25/2024 Administered Influenza Unknown 02/22/2025 Administered Pneumococcal Unknown 02/27/2015 Administered COVID-19 Pfizer BioNTech Vaccine Unknown 08/17/2020 Administered 1st 07/27/2020 Social History Tobacco Use: Social History Observation Description Date Details (start date - stop date) Never Smoker NA - NA Tobacco use other than smoking: Question Answer Notes Are you an other tobacco user? No Tobacco Control (Standard) Question Answer Notes Tobacco use: Nonsmoker Additional Findings: Tobacco non-user Current no nsmoker AUDIT-C (Standard) Question Answer Notes Did you have a drink containing alcohol in the p ast year? No Points 0 Interpretation Negative Problems Problem Type SNOMED Code ICD Code Onset Dates Problem Status W/U Status Risk Notes Problem Acquired hammer toe of right foot (8283831719935033 ) Other hammer toe(s) (acquired), right foot (M20.41) Active confirmed Response to treatment, Improvemen t Problem Acquired hammer toe of left foot (2871479166877505 ) Other hammer toe(s) (acquired), left foot (M20.42) Active confirmed Response to treatment, Improvemen t Problem Polyneuropathy due to diabetes mellitus type I (790965258) Type 1 diabetes mellitus with diabetic polyneuropathy (E10.42) Active confirmed Problem Ulcer of toe of right foot (disorder) (1861352105886718 1) Skin ulcer of toe of right foot, limited to breakdown of skin (L97.511) Active confirmed Vital Signs Blood pressure diastolic 65 mm Hg 03/09/2025 Height 4ft 11in in 03/09/2025 Blood pressure systolic 128 mm Hg 03/09/2025 Weight 161 lbs 03/09/2025 BMI 32.51 kg/m2 03/09/2025 Procedures Procedure Date Ordered Date Performed Result Body Sit e 89018-MLLWXJH NAIL, 6 OR MORE 07/04/2024 N/A 31716-XWOA SKIN LESIONS, OVER 4 07/04/2024 N/A 41346-VAPVJXQ NAIL, 6 OR MORE 10/03/2024 N/A 95246-CZLX SKIN LESIONS, OVER 4 10/03/2024 N/A 81193-IYSTXTI NAIL, 6 OR MORE 01/02/2025 N/A 34700-RNAK SKIN LESIONS, OVER 4 01/02/2025 N/A 62813-Ijjplosl Plate 02/13/2025 N/A 35289-IFVCWOE NAIL, 6 OR MORE 03/09/2025 N/A 35003- Debride <25 sq cm 03/09/2025 N/A 04206-WNLP SKIN LESIONS, OVER 4 03/09/2025 N/A Encounters Encounter Location Date Provider Diagnosis [address] [address] 07/04/2024 Beaulroi London Type 1 diabetes mellitus with diabetic polyneuropathy E10.42 ; Tinea unguium B35.1 ; Other hammer toe(s) (acquired), right foot M20.41 and Other hammer toe(s) (acquired), left foot M20.[address] [address] 10/03/2024 Beau Surya Type 1 diabetes mellitus with diabetic polyneuropathy E10.42 and Tinea unguium B35.[address] [address] 01/02/2025 Beaulori London Type 1 diabetes mellitus with diabetic polyneuropathy E10.42 and Tinea unguium B35.[address] [address] 02/13/2025 Beau London Pain in right toe(s) M79.674 ; Ingrown nail L60.0 and Cellulitis of right toe L03.[address] [address] 03/09/2025 Beau London Type 1 diabetes mellitus with diabetic polyneuropathy E10.42 ; Tinea unguium B35.1 ; Cellulitis of toe of right foot L03.031 and Skin ulcer of toe of right foot, limited to breakdown of skin L97.511 [facility] [address] [place] [address] 07/06/2024 Beau London [address] [address] 02/08/2025 Beau London Assessments Encounter Date Diagnosis (ICD Code) Assessment Notes Treatment Notes Treatment Clinical Notes Section Notes 07/04/2024 Type 1 diabetes mellitus with diabetic polyneuropathy (ICD-10 - E10.42) 07/04/2024 Tinea unguium (ICD-10 - B35.1) 10/03/2024 Type 1 diabetes mellitus with diabetic polyneuropathy (ICD-10 - E10.42) 10/03/2024 Tinea unguium (ICD-10 - B35.1) 01/02/2025 Type 1 diabetes mellitus with diabetic polyneuropathy (ICD-10 - E10.42) 01/02/2025 Tinea unguium (ICD-10 - B35.1) 02/13/2025 Pain in right toe(s) (ICD-10 - M79.674) 02/13/2025 Ingrown nail (ICD-10 - L60.0) Patient Educated with: WOUND CARE INSTRUCTIONS. pdf (WOUND CARE INSTRUCTIONS. pdf) 03/09/2025 Type 1 diabetes mellitus with diabetic polyneuropathy (ICD-10 - E10.42) 03/09/2025 Tinea unguium (ICD-10 - B35.1) 02/13/2025 Cellulitis of right toe (ICD-10 - L03.031) 07/04/2024 Other hammer toe(s) (acquired), right foot (ICD-10 - M20.41) Patient Educated with: DIABETIC FOOT CARE INSTRUCTIONS. pdf (DIABETIC FOOT CARE INSTRUCTIONS. pdf) 07/04/2024 Other hammer toe(s) (acquired), left foot (ICD-10 - M20.42) 03/09/2025 Cellulitis of toe of right foot (ICD-10 - L03.031) 03/09/2025 Skin ulcer of toe of right foot, limited to breakdown of skin (ICD-10 - L97.511) Patient Educated with: WOUND CARE INSTRUCTIONS. pdf (WOUND CARE INSTRUCTIONS. pdf) Plan Of Treatment Pending Test Test Name Order Date Hemoglobin A1c 02/07/2015 83628-HYKSCPK NAIL, 6 OR MORE 02/07/2015 90069-LLJOVGX NAIL, 6 OR MORE 05/09/2015 42965-FTVUKVX NAIL, 6 OR MORE 08/02/2015 84526-NNUQFMI NAIL, 6 OR MORE 11/01/2015 61511-EFTTDRG NAIL, 6 OR MORE 01/31/2016 85362-XAECNZA NAIL, 6 OR MORE 05/01/2016 94214-AMSPCCK NAIL, 6 OR MORE 07/31/2016 97237-RLCZZPF NAIL, 6 OR MORE 11/03/2016 91684-ZLBOPPN NAIL, 6 OR MORE 02/05/2017 27662-JIQBSYD NAIL, 6 OR MORE 05/07/2017 10019-TWKPYVO NAIL, 6 OR MORE 09/09/2017 70578-CCFBCIQ NAIL, 6 OR MORE 12/03/2017 54353-YZKEDZB NAIL, 6 OR MORE 03/04/2018 55547-HZDEOSP NAIL, 6 OR MORE 06/16/2018 49138-HBGZAPG NAIL, 6 OR MORE 09/22/2018 80123-OHRAJBT NAIL, 6 OR MORE 02/19/2011 26950-BQUUVXD NAIL, 6 OR MORE 05/28/2011 06328-OVHKVAE NAIL, 6 OR MORE 08/27/2011 75156-QNXPVTB NAIL, 6 OR MORE 12/08/2011 15106-FBYKUMY NAIL, 6 OR MORE 03/08/2012 71753-MBJHOHQ NAIL, 6 OR MORE 06/09/2012 67294-MWYPGGA NAIL, 6 OR MORE 08/25/2012 00049-DDDFVYZ NAIL, 6 OR MORE 11/24/2012 38703-DPPCRSB NAIL, 6 OR MORE 02/28/2013 26667-ZVJCAOB NAIL, 6 OR MORE 06/09/2013 59111-GLWFHFV NAIL, 6 OR MORE 08/24/2013 89930-EOVHXAV NAIL, 6 OR MORE 11/23/2013 58002-LGXAXJT NAIL, 6 OR MORE 02/15/2014 38810-WICUBAU NAIL, 6 OR MORE 07/17/2014 01281-LIUHMFF NAIL, 6 OR MORE 04/24/2014 94296-MQUQHIW NAIL, 6 OR MORE 10/30/2014 09554-WKFBOHT NAIL, 6 OR MORE 12/22/2018 12807-SIFHYIH NAIL, 6 OR MORE 03/23/2019 60070-BFQANST NAIL, 6 OR MORE 06/23/2019 38071-EUUPETA NAIL, 6 OR MORE 09/21/2019 68367-VEXZMEE NAIL, 6 OR MORE 01/02/2020 03646-XPAAHQB NAIL, 6 OR MORE 04/23/2020 56222-GMDJLTJ NAIL, 6 OR MORE 08/01/2020 47734-GTQXRBJ NAIL, 6 OR MORE 11/01/2020 93845-LNYVVQE NAIL, 6 OR MORE 02/06/2021 02872-BHTCRDB NAIL, 6 OR MORE 07/04/2021 55094-BIYBSIX NAIL, 6 OR MORE 09/26/2021 07012-SNZUVON NAIL, 6 OR MORE 12/25/2021 00043-YFOXEZI NAIL, 6 OR MORE 03/26/2022 10322-JQLRPQB NAIL, 6 OR MORE 06/19/2022 99447-JKYAEUM NAIL, 6 OR MORE 10/06/2022 62106-HNSZURX NAIL, 6 OR MORE 12/29/2022 19619-AHYEZHW NAIL, 6 OR MORE 03/30/2023 73493-BWRXHFO NAIL, 6 OR MORE 06/29/2023 40254-TDTRZJP NAIL, 6 OR MORE 10/01/2023 68865-WJAIMKO NAIL, 6 OR MORE 12/31/2023 22610-HUZKSNG NAIL, 6 OR MORE 04/04/2024 98928-FDQAKFV NAIL, 6 OR MORE 07/04/2024 41540-QTBWGGG NAIL, OR MORE 10/03/2024 65609-SCPULHZ NAIL, 6 OR MORE 01/02/2025 14435-ZLZPLFA NAIL, 6 OR MORE 03/09/2025 20569-Nuqhrjhx Plate 02/13/2025 86111-Rgmvinjn Plate 06/29/2023 87187-Dapotnkq Plate 04/04/2024 48395-Cffsbmhb Plate 10/06/2022 99644-Pyqbasbp Plate 06/19/2022 57893-Kcxhdfxe Plate 09/26/2021 14246-Irsbnlpx Plate 07/04/2021 18762-Jvaxmrsg Plate 02/06/2021 67646-Ghvvvzns Plate 11/01/2020 89033-Hviganjv Plate 08/01/2020 04798-Mitfjptc Plate 04/23/2020 36901-Vhgipqaq Plate 01/02/2020 98386-Flgdftyg Plate 09/21/2019 88652-Kmnvftxi Plate 06/23/2019 87811-Mvmhoxnt Plate 03/23/2019 86714-Xvenuizy Plate 12/22/2018 71180-Kaxigkcy Plate 04/24/2014 56638-Wzzgyqfe Plate 07/17/2014 13411-Etptejlt Plate 09/22/2018 98849-Axfaeiif Plate 02/07/2015 03444-Iixjpydx Plate Each Additional 58123- Debride <25 sq cm 03/09/2025 04338 I&D ABSCESS- SIMPLE,SINGLE 023 91730 I&D ABSCESS- SIMPLE,SINGLE 023 57002-MGWD SKIN LESIONS, OVER 4 06/29/19 24 73695-QIDH SKIN LESIONS, OVER 4 03/30/20 83018-QBDS SKIN LESIONS, OVER 4 12/30/19 02867-MJMZ SKIN LESIONS, OVER 4 04/04/20 70126-DUAH SKIN LESIONS, OVER 4 12/31/19 97378-PKYN SKIN LESIONS, OVER 4 10/01/19 71791-UVZH SKIN LESIONS, OVER 4 03/09/20 18691-TUHW SKIN LESIONS, OVER 4 01/03/20 86884-VBXQ SKIN LESIONS, OVER 4 10/04/19 99082-QUXD SKIN LESIONS, OVER 4 07/04/19 16944-UANS SKIN LESIONS, OVER 4 12/23/19 19 19940-KCRP SKIN LESIONS, OVER 4 03/23/20 19 65145-CCGN SKIN LESIONS, OVER 4 06/23/19 20 51533-DYJU SKIN LESIONS, OVER 4 09/21/19 20 47797-SHIM SKIN LESIONS, OVER 4 01/02/20 20 99961-GSEC SKIN LESIONS, OVER 4 04/23/20 20 18406-TOQF SKIN LESIONS, OVER 4 08/02/19 21 47869-WPTT SKIN LESIONS, OVER 4 11/02/19 21 35288-DHCL SKIN LESIONS, OVER 4 02/07/20 21 88287-QGCK SKIN LESIONS, OVER 4 07/04/19 70118-RQEG SKIN LESIONS, OVER 4 09/27/19 22 81209-INPH SKIN LESIONS, OVER 4 12/26/19 22 84138-ASAD SKIN LESIONS, OVER 4 12/04/19 18 86853-EUIV SKIN LESIONS, OVER 4 10/07/19 23 56020-ZQWV SKIN LESIONS, OVER 4 06/19/19 23 38621-TNOP SKIN LESIONS, OVER 4 03/26/20 22 56754-VGOO SKIN LESIONS, OVER 4 07/17/19 15 00991-UIFB SKIN LESIONS, OVER 4 04/24/20 14 28000-IWNS SKIN LESIONS, OVER 4 10/31/19 15 90609-PEGE SKIN LESIONS, OVER 4 02/16/20 14 55695-CZAU SKIN LESIONS, OVER 4 11/24/19 14 69721-DZAK SKIN LESIONS, OVER 4 08/25/19 14 12553-PVMA SKIN LESIONS, OVER 4 06/09/19 14 63726-NMTD SKIN LESIONS, OVER 4 02/29/20 13 68365-IQFT SKIN LESIONS, OVER 4 11/25/19 13 13764-NIMT SKIN LESIONS, OVER 4 08/26/19 13 00099-WVJB SKIN LESIONS, OVER 4 06/09/19 13 09805-UVGP SKIN LESIONS, OVER 4 03/08/20 12 43746-BYDL SKIN LESIONS, OVER 4 12/08/19 12 11358-NMDF SKIN LESIONS, OVER 4 08/27/19 12 62639-DOEU SKIN LESIONS, OVER 4 05/28/19 12 07560-VAHD SKIN LESIONS, OVER 4 02/08/20 15 33635-CKQP SKIN LESIONS, OVER 4 05/09/20 15 39304-SEDA SKIN LESIONS, OVER 4 11/01/19 16 80928-TYGM SKIN LESIONS, OVER 4 08/02/19 16 35558-FEBS SKIN LESIONS, OVER 4 02/06/20 17 19690-MMZB SKIN LESIONS, OVER 4 08/01/19 17 05547-TOEH SKIN LESIONS, OVER 4 11/04/19 17 93672-QGAW SKIN LESIONS, OVER 4 05/01/20 16 87718-VNCA SKIN LESIONS, OVER 4 01/31/20 16 56717-XYPG SKIN LESIONS, OVER 4 09/23/19 19 70043-LVPK SKIN LESIONS, OVER 4 06/16/19 19 49599-GQAY SKIN LESIONS, OVER 4 03/04/20 18 14963-UWGD SKIN LESIONS, OVER 4 02/20/20 11 90074-UJIL SKIN LESIONS, OVER 4 09/10/19 18 28793-GJUM SKIN LESIONS, OVER 4 05/07/20 17 41570- Biopsy of skin lesion 09/09/2017 63165 - TENOTOMY, OPEN, EXTENSOR 018 Next Appt Details Provider Name:Beau London , 06/08/2025 03:45:00 PM, [address] [facility], [facility] [address], [place], [address], Insurance Providers Payer Name Payer Address Payer Phone Subscriber Number Group Number Insured Name Patient Relationship to Insured Coverage Start Date Coverage End Date Medicare National [employer] [address] [place] [address] [id number] Ciarra Canseco Self - patient is the insured 8 [employer] [facility] [address] [place] [address] [phone] [id number] Ciarra Canseco Self - patient is the insured Medical (General) History Medical History History ICD Code stomach ulcer hypertension diabetic Cholesterol vascular phlebitis(clots) Arthritis Back pain Stroke- mini 03/2020 Surgical History Surgery Date(Month/Year) gynecological surgery 1983 sinus surgery 1980, 1991 tubal ligation 1978 valve surgery 03/19/20 Stent 02/06/20 stent 08/26/21 stent, leg 12/05/21 CABG x 2 carotid artery 2024 cardiomems 12/21/24 Hospitalization History Reason Date(Month/Year) [facility] - pneumonia, came home 09/29/242024 [facility], CHF and pneumonia 09/09/23[facility]09/11/23 [facility] bleed 05/06[facility]23 [facility] fracture 12/2022-01/2023 [facility] 10[facility]14 [facility]- blood infection, rehab 08/2022 [facility]- fluid 03/15/22 [facility]- chest tightness 01/2022 [facility]- low sodium 08/2021 [facility]- Blood clot right leg 05/01/21 [facility] - mini stroke 01/2020 [facility] fell, chest pain, Nitr oglycerin caused fainting, broke right ankle 08/18/18, 08/19/18 [facility]- allergic reaction to avelox & 05/01/13
--- OUTSIDE RECORDS SUMMARY | 2025-04-27 11:53 | XMS_ITS | Encounter Summary ---
Author Organization [facility] Address [address] [place] [address] Care Team Providers Care Real Estate Rental Agent Name Role Phone Miriam Cole MD Primary Care Provider Tova Baldwin MD Unavailable Edmond Bermudez MD Unavailable [phone] Lawrence Hodges MD Unavailable Unavailabl e Encounter Details Date Type Department Care Team (Late st Contact Info) Description 11/26/2022 Scanned Document [facility] Heart & Vascular [facility] Advanced Heart Failure [address] [phone] Edmond Bermudez MD [address] [address] Social History Tobacco Use Types Packs/Day Years [...] Description 08/21/2025 3:00 PM EDT Office Visit [facility] Heart & V[facility] [place] [facility] [address] [address] [place] [phone] Edmond Bermudez MD [address] [place] [address] documented as of this encounter Visit Diagnoses Not on filedocumented in this encounter Care Teams Real Estate Rental Agent Relationship Specialty Start Date End Date Miriam Cole MD [address] [address] PCP - General Internal Medicine 10/06/22 Tova Baldwin MD [address] [address] Reimbursement Consultant 11/26/22 Edmond Bermudez MD [address] [place] [address] Cardiovascular Disease 11/26/22 Lawrence Hodges MD [address] [place] [address] Referring Provider 12/18/22 documented as of this encounter
--- OUTSIDE RECORDS SUMMARY | 2025-04-27 11:53 | XMS_ITS | Encounter Summary ---
Author Organization [facility] Address [address] [place] [address] Care Team Providers Care Prizer Hand Name Role Phone Miriam Cole MD Primary Care Provider Tova Baldwin MD Unavailable Edmond Bermudez MD Unavailable [phone] Lawrence Hodges MD Unavailable Unavailabl e Encounter Details Date Type Department Care Team (Late st Contact Info) Description 03/08/2024 Scanned Document [facility] Heart & Vascular [place] [facility] Advanced Heart Failure [address] [phone] Edmond Bermudez MD [address] [address] Social History Tobacco Use Types Packs/Day Years [...] Description 08/21/2025 3:00 PM EDT Office Visit [facility] Heart [facility] [place] [facility] [address] [address] [place] [phone] Edmond Bermudez MD [address] [place] [address] documented as of this encounter Visit Diagnoses Not on filedocumented in this encounter Care Teams Prizer Hand Relationship Specialty Start Date End Date Miriam Cole MD [address] [address] PCP - General Internal Medicine 10/06/22 Tova Baldwin MD [address] [address] [address] 11/26/22 Edmond Bermudez MD [address] [place] [address] Cardiovascular Disease 11/26/22 Lawrence Hodges MD [address] [place] [address] Referring Provider 12/18/22 documented as of this encounter
--- OUTSIDE RECORDS SUMMARY | 2025-04-27 11:53 | XMS_ITS | Clinical Summary ---
Author Organization [facility] Address [address] [place] [address] Care Team Providers Care Air Traffic Supervisor Name Role Phone Miriam Cole MD Primary Care Provider [phone] Tova Baldwin MD Unavailable Edmond Bermudez MD Unavailable [phone] Lawrence Hodges MD Unavailable Unavailabl e [...] by mouth 2 times a day. Active albuterol (PROAIR RESPICLICK) 108 (90 Base) MCG/ACT inhalerIndications :Dyspnea and respiratory abnormalities Inhale 1 puff 4 times daily (every 6 hours) as needed for wheezing. Active clopidogrel (Plavix) 75 MG tabletIndications: Coronary artery disease involving [place] coronary artery of [place] heart with angina pectoris Take 1 tablet (75 mg total) by mouth daily. Active insulin aspart (NovoLOG) 100 UNIT/ML injectionIndicatio [...] 24 hr tabletIndications: Coronary artery disease involving [place] coronary artery of [place] heart with angina pectoris Take 4 tablets [...] Do not crush, break or chew. Active montelukast (SINGULAIR) 10 MG tablet Take 1 tablet (10 mg total) by mouth nightly. Active pravastatin (PRAVACHOL) 80 MG tabletIndications: Coronary artery disease involving [place]oon[place] coronary artery of [place] heart with angina pectoris Take 1 tablet [...] and the early evening.. 180 tablet 3 5 Active fluticasone-salmet coral 250-50 mcg/inh diskus inhaler Inhale 1 puff 2 (two) times a day. Active metoPROLOL SUCCINATE (TOPROL-XL) 50 MG 24 hr tabletIndications: Coronary artery disease involving hoon[place] coronary artery of [place] heart with angina pectoris Take 1 tablet (50 mg total) by mouth daily. 90 tablet 1 5 Active Active Problems Problem Noted Date Diagnosed Date S/P left pulmonary artery pressure sensor implan t placement 03/27/2025 CHF (congestive heart failure), NYHA class III 0 12/08/2024 Chronic heart failure with preserved ejection fr action 11/30/2022 Atrial fibrillation 11/30/2022 Encounters Date Type Department Care Team Description 04/21/2025 8:45 AM EST Clinical Support [facility] Heart & Vascular [facility] Heart Failure [place] [address] [place] [address] [place] [address] Brendon Garcia DO 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 [Z95.9] (Primary Dx) 03/22/2025 8:15 AM EDT Clinical Support [facility] & [facility] Heart Failure [place] [address] [place] [address] [place] [address] Radha, Brendon A, DO 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 (Primary Dx) 02/20/2025 8:00 AM EDT Clinical Support [facility] Vascular [facility] Heart Failure [place] [address] [facility] [address] [place] [address] Radha, Brendon A, DO 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 [Z95.9] (Primary Dx) 02/07/2025 3:00 PM EDT Office Visit [facility] Vascular [facility] Heart Failure [place] [address] [facility] [address] [place] [address] Beth Castaneda APRN Chronic heart failure with preserved ejection fraction (HCC) (Primary Dx) 01/26/2025 8:00 AM EDT Documentation [facility] Heart Failure [place] [address] [facility] [address] [place] [address] Laura Gross MD from Last 3 Months Social History Tobacco [...] Sign Reading Time Taken Comments Blood Pressure 125/59 02/07/2025 2:59 PM EDT Pulse 84 02/07/2025 2:59 PM EDT Temperature 35.6 C (96 F) 12/21/2024 7:53 AM EDT Respiratory Rate 18 12/21/2024 12:30 PM EDT Oxygen Saturation 98% 02/07/2025 2:59 PM EDT Inhaled Oxygen Concentration - - Weight 76 kg (167 lb 8.8 oz) 02/07/2025 2:59 PM EDT Height 134.6 cm (4' 5 ) 02/07/2025 2:59 PM EDT Body Mass Index 41.94 02/07/2025 2:59 PM EDT Plan of Treatment Upcoming Encounters Date Type Department Care Team (Late st Contact Info) Description 08/21/2025 3:00 PM EDT Office Visit [facility] Heart & Vascular [facility] [address] [phone] Edmond Bermudez MD [address] [address] Health Maintenance Due Date Last Done Comments Advance Care Planning 1950 Hepatitis C Virus Screening 1950 DTaP/Tdap/Td Vaccines (1 - Tdap) 1971 Pneumococcal Vaccines 50+ (1 of 2 - PCV) 1971 Mammogram 1992 Colonoscopy 1997 RSV Vaccine 50 years and older and Patients (1 - Risk 50-74 years 1-dose series) 2002 Zoster (Shingles) Vaccine (1 of 2) 2002 DXA Bone Density (Females,Ages 65 and older) 2017 COVID-19 Vaccine ( season) 2025 04/09/2024, 04/05/2023, 11/29/2021, Additional history exists Influenza Vaccine Completed 02/22/2025, , 01/25/2024, Additional history exists Hepatitis B Vaccines Aged Out No long er eligible based on patient's age to complete this topic Medical Devices Implanted Type Area Specialty Trimmer Device Identifier Shelf Expiration Date Model / Serial / Lot [id number] [facility] Sensor Delivery System - [id number] Implanted:Qty : 1 on 12/21/2024 by Brendon Garcia DO at [facility] [place] Sensor N/A: Lung [employer] - AN A[employer]OT [id number] 09/07/2026 [id number] / [id number] / Insurance MEDICARE PART A & B BLUE CROSS OUT OF [facility] BLUE CROSS OUT OF [facility] MEDICARE PART A & B Advance Directives * Full Code (Latest Code Status on File) Date Activated Date Inactivated Comments 12/21/2024 8:24 AM Care Teams Air Traffic Supervisor Relationship Specialty Start Date End Date Miriam Cole MD [address] [address] PCP - General Internal Medicine 10/06/22 Tova Baldwin MD [address] [address] Rattling Machine Tender 11/26/22 Edmond Bermudez MD 85 [place] [address] Cardiovascular Disease 11/26/22 Lawrence Hodges MD 85 [place] [address] Referring Provider 12/18/22
== END 2025-04-27 10:51 | disposition home or self-care (01) ==
LOC: HO.RHES 10:03
PROVIDERS: PCP Internal Medicine; Visit Provider Internal Medicine Rheumatology
DX: M80.00XS Age-related osteoporosis with current pathological fracture, unspecified site, sequela (principal); Z79.899 Other long term (current) drug therapy
CPT/HCPCS: 99214; G2211

== ENCOUNTER → 2025-04-27 10:02 | Outpatient (BNVA) | payer MEDICARE, OTHER, SELFPAY | PROVIDERS: PCP Internal Medicine; Visit Provider Internal Medicine Rheumatology | DX: M80.00XS Age-related osteoporosis with current pathological fracture, unspecified site, sequela (principal); Z79.899 Other long term (current) drug therapy | CPT/HCPCS: 99212 ==

== ENCOUNTER 2025-05-05 09:13 | Outpatient (REF) | payer MEDICARE, OTHER, SELFPAY ==
[2025-05-05 10:29] LABS: Parathyroid Hormone Intact 52.7 pg/mL (8.7-77.1)
[2025-05-05 10:49] LABS: Alanine Aminotransferase 19 U/L (0-31); Albumin Level 4.3 g/dL (3.5-5.0); Aspartate Amino Transferase 40 U/L (5-31); Calcium 9.8 mg/dL (8.4-10.2); Estimated Glomerular Filt Rate > 60
[2025-05-05 10:54] LABS: Thyroid Stimulating Hormone 0.68 uIU/mL (0.32-4.0)
[2025-05-08 21:38] LABS: Collagen Type I C-Telopeptide 206 pg/mL (see note)
== END 2025-05-05 09:14 | disposition home or self-care (01) ==
LOC: HO.LAB 09:13
PROVIDERS: Visit Provider Internal Medicine Rheumatology
DX: M80.00XS Age-related osteoporosis with current pathological fracture, unspecified site, sequela (principal); Z79.899 Other long term (current) drug therapy
CPT/HCPCS: 36415; 82040; 82306; 82310; 82523; 82565; 83970; 84075; 84443; 84450; 84460